=== PATIENT | male | born 1950 | race Caucasian/White ===

== ENCOUNTER 2020-04-05 09:24 | Outpatient (CLI) | payer MEDICARE, OTHER, SELFPAY ==
--- NOTE | ~2020-04-05 | CT_ITS ---
EXAMINATION:CT chest w con DATE: 04/05/2020 10:13 INDICATION: Aortic aneurysm. TECHNIQUE: Computed tomography (CT) of the chest was performed with 75 mL Omnipaque 350 intravenous c ontrast. Automated exposure control and iterative reconstruction technique were employed. The dose-le ngth product (DLP) was 448.49 mGy-cm. COMPARISON: Chest CT 04/23/2019 FINDINGS: There is eventration of anterior right hemidiaphragm. There is mild atelectasis in the infe rior lungs bilaterally. No pleural effusion. The heart size is normal. No pericardial effusion. The a kourtney is obscured at the sinuses of Valsalva due to motion artifact. The aorta measures 4.0 cm at the sinotubular junction, 4.2 cm in the mid ascending aorta, 3.4 cm at the aortic arch, and 2.9 cm in the mid descending aorta. There is a 2.3 cm cyst in right kidney. There is severe osteoarthritis of righ t glenohumeral joint with loose bodies. There is mild thoracic spondylosis and severe cervical spondy losis. IMPRESSION: 1. Stable 4.2 cm fusiform aneurysm of ascending aorta. Reviewed, dictated and finalized at location A.
[2020-04-05 10:03] LABS: Estimated Glomerular Filt Rate > 60
== END 2020-04-05 09:25 | disposition home or self-care (01) ==
PROVIDERS: PCP Family Medicine; Visit Provider Internal Medicine Cardiovascular Disease
DX: I71.4 Abdominal aortic aneurysm, without rupture (principal)
CPT/HCPCS: 36415; 71260; Q9967

== ENCOUNTER → 2021-02-24 07:04 | Outpatient (CLI) | payer MEDICARE, OTHER, SELFPAY ==
[2021-02-24 19:43] LABS: SARS-CoV-2 RNA PCR Negative
== END ==
PROVIDERS: PCP Family Medicine; Visit Provider Family Medicine
DX: Z78.9 Other specified health status (principal); Z20.822 Contact with and (suspected) exposure to COVID-19
CPT/HCPCS: C9803; U0003; U0005

== ENCOUNTER 2021-04-04 10:27 | Outpatient (CLI) | payer MEDICARE, OTHER, SELFPAY ==
--- NOTE | ~2021-04-04 | US_ITS ---
EXAMINATION: US venous doppler [facility] DATE: 04/04/2021 11:06 INDICATION: Left lower limb swelling. TECHNIQUE: Grayscale ultrasound images without and with compression and Doppler ultrasound images of the left lower extremity veins were obtained. COMPARISON: None. FINDINGS: The visualized portions of left common femoral vein, profunda (deep) femoral vein, femoral vein, popl iteal vein, peroneal veins, posterior tibial veins, and greater saphenous vein outflow are patent. Th ere is a large Rangel's cyst. IMPRESSION: 1. No deep venous thrombosis. 2. Large Rangel's cyst. Reviewed, dictated and finalized at location B.
== END 2021-04-04 10:28 | disposition home or self-care (01) ==
PROVIDERS: PCP Family Medicine; Visit Provider Orthopaedic Surgery
DX: M79.662 Pain in left lower leg (principal); M79.89 Other specified soft tissue disorders; M71.22 Synovial cyst of popliteal space [Baker], left knee
CPT/HCPCS: 93971

== ENCOUNTER → 2021-04-13 02:43 | Outpatient (CLI) | payer MEDICARE, OTHER, SELFPAY ==
[2021-04-13 18:15] LABS: SARS-CoV-2 RNA PCR Negative
== END ==
PROVIDERS: PCP Family Medicine; Visit Provider Internal Medicine Gastroenterology
DX: Z01.812 Encounter for preprocedural laboratory examination (principal); Z20.822 Contact with and (suspected) exposure to COVID-19
CPT/HCPCS: C9803; U0003; U0005

== ENCOUNTER 2021-04-16 00:42 | Day surgery (SDC) | payer MEDICARE, OTHER, SELFPAY ==
[2021-04-10 09:56] VITALS: BMI 31.1
[2021-04-16] MEDS: LACTATED RINGERS 1,000 ML 150 ML IV CONT (07:07)
--- NOTE | 2021-04-16 07:13 | P.PNAN_ITS ---
Anes - Initial Pre Proc Eval Procedure: Operation Date: 04/16/21 08:00 Proposed Procedures p Screening Colonoscopy - Leon Lowery MD Date/Time: 04/16/21 07:13 Surgeon: Leon Lowery MD Pre Op Diagnosis: neoplasm screening Patient Data Age: 70 Gender: M Height: 1.83 m Weight: 105.6 kg Allergies Allergy/AdvReac Type Severity Reaction Status Date / Time No Known Allergies Allergy Verified 04/16/21 06:53 Home Medications Medication Instructions Recorded Confirmed Type aspirin 81 mg tablet,delayed 81 mg PO DAILY 12/09/19 04/16/21 History release losartan 50 mg tablet 50 mg PO DAILY #90 tablet 06/05/20 04/16/21 Rx doxazosin 4 mg tablet 4 mg PO DAILY #90 tablet 10/18/20 04/16/21 Rx metoprolol succinate 25 mg See Rx Instructions .ROUTE 01/26/21 04/16/21 Rx tablet,extended release 24 hr .COMPLEX #90 tablet finasteride 5 mg tablet See Rx Instructions .ROUTE 02/06/21 04/16/21 Rx .COMPLEX #90 tablet atorvastatin [Lipitor] 10 mg PO EVERY OTHER DAY 04/10/21 04/16/21 History sildenafil (pulm.hypertension) See Rx Instructions .ROUTE .COMPLEX 04/16/21 04/16/21 History [Revatio] Patient hx anesthesia problems: none Family hx anesthesia problems: none [facility] Past Medical History Medical History (Updated 04/04/21 @ 09:46 by Armani Howard MD) Osteoarthritis of left knee Surgical History Surgical History History of total right knee replacement 2014 Family History Family History Father Family history of elevated blood lipids Social History Social History Years smoked: 10 Smoking status: Former smoker Tobacco type: cigarettes Alcohol intake: current Alcohol use details: OCCATIONAL Living arrangements: with family Gender identity (if verbalized by the patient): Male Spiritual care concerns: No Anes - Eval Final PreProcedure Day of Procedure 04/16/21 07:13 Patient weight: obese Heart: regular rate and rhythm Lungs: clear to auscultation and normal air movement Airway: Mallampati scale class II Neurological: alert and oriented Last oral intake: >/= 8 hours ASA classification: III Emergent: no Anesthetic plan: proceed Anesthesia type and monitoring: general GIVS Informed Consent: The patient's anesthetic plan and its attendant risks and benefits were discussed with the patient/family/POA. Questions were solicited and answers provided to the satisfaction of the patient/family/POA.
--- NOTE | 2021-04-16 07:56 | WPDGICN ---
Assessment and Plan Assessment and plan (1) Encounter for screening colonoscopy: Code(s): Z12.11 - Encounter for screening for malignant neoplasm of colon Status: Acute Assessment and Plan: Patient presents for screening colonoscopy. His current weight appetite bowel movements are normal. He peers be at average risk for colon polyps. Further recommendations will be given after endoscopy. GI Consult Note Consult date/time: 04/16/21 07:56 HPI: Guy Gates is a 70 year old male Presents for screening colonoscopy. Patient reports that his current weight appetite bowel movements are normal. Patient denies abdominal pain. He has had no bleeding. Family history noncontributory. Review of Systems Review of Systems: All systems reviewed & are unremarkable except as noted in HPI and below PMFSH Past Medical History Medical History (Updated 04/16/21 @ 07:57 by Leon Lowery MD) Osteoarthritis of left knee Surgical History Surgical History History of total right knee replacement 2014 Family History Family History Father Family history of elevated blood lipids Social History Social History Years smoked: 10 Smoking status: Former smoker Tobacco type: cigarettes Alcohol intake: current Alcohol use details: OCCATIONAL Living arrangements: with family Gender identity (if verbalized by the patient): Male Spiritual care concerns: No Meds Home Medications and Allergies Home Medications Medication Instructions Recorded Confirmed Type aspirin 81 mg tablet,delayed 81 mg PO DAILY 12/09/19 04/16/21 History release losartan 50 mg tablet 50 mg PO DAILY #90 tablet 06/05/20 04/16/21 Rx doxazosin 4 mg tablet 4 mg PO DAILY #90 tablet 10/18/20 04/16/21 Rx metoprolol succinate 25 mg See Rx Instructions .ROUTE 01/26/21 04/16/21 Rx tablet,extended release 24 hr .COMPLEX #90 tablet finasteride 5 mg tablet See Rx Instructions .ROUTE 02/06/21 04/16/21 Rx .COMPLEX #90 tablet atorvastatin [Lipitor] 10 mg PO EVERY OTHER DAY 04/10/21 04/16/21 History sildenafil (pulm.hypertension) See Rx Instructions .ROUTE .COMPLEX 04/16/21 04/16/21 History [Revatio] Allergies Allergy/AdvReac Type Severity Reaction Status Date / Time No Known Allergies Allergy Verified 04/16/21 06:53 Exam Narrative: Exam Narrative: Physical exam reveals patient be alert. Vital signs stable. HEENT exam is unremarkable. Patient is anicteric. Lungs are clear to auscultation and percussion. Heart is without murmur or extra sounds. Abdominal exam bowel sounds are present soft nontender with no organomegaly. Digital external rectal exam is normal.
[2021-04-16 08:25] VITALS: BP 133/70; PULSE 62; RESP 20; O2SAT 96
[2021-04-16 08:35] VITALS: BP 128/67; PULSE 70; RESP 20; O2SAT 96
[2021-04-16 08:45] VITALS: BP 128/67; PULSE 66; RESP 22; O2SAT 96
== END 2021-04-16 08:58 | disposition home or self-care (01) ==
PROVIDERS: PCP Family Medicine; Visit Provider Internal Medicine Gastroenterology
PROC: 0DJD8ZZ Inspection of Lower Intestinal Tract, Via Natural or Artificial Opening Endoscopic (ICD-10-PCS; CPT 45378; principal; 2021-04-16 08:00)
DX: Z12.11 Encounter for screening for malignant neoplasm of colon (principal); K64.8 Other hemorrhoids; K57.30 Diverticulosis of large intestine without perforation or abscess without bleeding; Z87.891 Personal history of nicotine dependence; Z79.82 Long term (current) use of aspirin; Z79.899 Other long term (current) drug therapy; E66.9 Obesity, unspecified; Z68.31 Body mass index [BMI] 31.0-31.9, adult
CPT/HCPCS: G0121; J2704; J7120

== ENCOUNTER 2021-05-08 14:29 | Outpatient (CLI) | payer MEDICARE, OTHER, SELFPAY ==
--- NOTE | ~2021-05-08 | CT_ITS ---
EXAMINATION: CTA chest DATE: 05/08/2021 15:46 INDICATION: Ascending aortic aneurysm TECHNIQUE: Computed tomographic angiography (CTA) of the chest was performed with 100 mL Omnipque-350 intravenous contrast. Maximum intensity projection 3D-reconstructions of the aorta and other arterie s were constructed by the technologist on a separate workstation. The dose-length product (DLP) was 7 02.21 mGy-cm. Automated exposure control and iterative reconstruction technique were employed. COMPARISON: 03/16/2020 FINDINGS: There is an unchanged fusiform aneurysm of the ascending aorta measuring 4.1 cm at the leve l of the main pulmonary artery. There is no dissection. The lungs are free of acute opacities. There is no pleural effusion or pneumothorax. No pathologically enlarged thoracic lymph nodes are identifie d. The heart size is normal. There is mild thoracic spondylosis. Severe right glenohumeral joint oste oarthritis is again noted. A 9 mm cyst is present in the left hepatic lobe. There is a 2.7 cm cyst of the right kidney IMPRESSION: 1. Stable 4.1 cm fusiform aneurysm of the ascending aorta Reviewed, dictated and finalized at location B.
[2021-05-08 15:37] LABS: Estimated Glomerular Filt Rate > 60
== END 2021-05-08 14:30 | disposition home or self-care (01) ==
PROVIDERS: PCP Family Medicine; Visit Provider Internal Medicine Cardiovascular Disease
DX: I71.2 Thoracic aortic aneurysm, without rupture (principal)
CPT/HCPCS: 71275; Q9967

== ENCOUNTER 2021-07-10 07:47 | Outpatient (CLI) | payer MEDICARE, OTHER, SELFPAY ==
--- NOTE | 2021-07-10 08:39 | ECG_ITS ---
Measurements Intervals Grady Rate: 54 P: ND: 0 QRS: -17 QRSD: 88 T: -6 QT: 416 QTc: 396 Interpretive Statements SINUS BRADYCARDIA WITH FIRST DEGREE AV BLOCK LOW QRS VOLTAGE IN PRECORDIAL LEADS VOLTAGE CRITERIA FOR LVH ANTEROSEPTAL INFARCT, AGE INDETERMINATE INFERIOR INFARCT, AGE INDETERMINATE BASELINE ARTIFACT- I, II, III, AVR, AVL, AVF ABNORMAL ECG Electronically Signed On 07-10-2021 9:20:42 CDT by Hermann Kim D.O.
[2021-07-10 09:29] LABS: Basophils Percent Auto 0.7 % (0.2-1.2); Eosinophils Absolute Auto 0.1 K/mm3 (0-0.3); Eosinophils Percent Auto 2.4 % (0-4.4); Hematocrit 43.8 % (42.0-52.0); Hemoglobin 14.2 g/dL (14.0-18.0); Immature Granulocyte Absolute 0.01 K/mm3 (0.00-0.031); Immature Granulocyte Percent A 0.2 % (0-0.5); Lymphocytes Absolute Auto 1.65 K/mm3 (0.9-3.2); Lymphocytes Percent Auto 30.8 % (18.3-44.2); Mean Corpuscular HGB Conc 32.4 g/dl (32-36); Mean Corpuscular Hemoglobin 28.6 pg (26-34); Mean Corpuscular Volume 88.1 fl (80-100); Mean Platelet Volume 10.9 fl (7.4-10.4); Monocytes Absolute Auto 0.5 K/mm3 (0.1-0.6); Monocytes Percent Auto 9.3 % (2.6-8.5); Neutrophils Percent Auto 56.6 % (45.5-73.1); Platelet Count Result 170 k/mm3 (150-375); Red Blood Count 4.97 M/mm3 (4.6-6.20); Red Cell Distribution Width 14.6 % (11.5-14.5); White Blood Count 5.4 K/mm3 (4.5-10.0)
[2021-07-10 09:41] LABS: Albumin Level 3.8 g/dL (3.5-5.1)
[2021-07-10 09:46] LABS: Anion Gap 4 mmol/L (8-16); Blood Urea Nitrogen 18 mg/dL (9-20); Calcium 8.6 mg/dL (8.4-10.2); Carbon Dioxide 29 mmol/L (22-30); Chloride 105 mmol/L (98-107); Estimated Glomerular Filt Rate > 60; Glucose 98 mg/dL (65-110); Potassium 4.4 mmol/L (3.4-5.0); Sodium 138 mmol/L (137-145)
[2021-07-10 09:47] LABS: Urine Cotinine NEGATIVE
[2021-07-10 10:14] LABS: Hemoglobin A1C 5.5 % (<5.7)
== END 2021-07-10 07:48 | disposition home or self-care (01) ==
LOC: ANHSURGERY 07:48
PROVIDERS: Anesthesiology; PCP Family Medicine; Visit Provider Orthopaedic Surgery
DX: Z01.818 Encounter for other preprocedural examination (principal); M17.12 Unilateral primary osteoarthritis, left knee; I10 Essential (primary) hypertension; I25.2 Old myocardial infarction; R00.1 Bradycardia, unspecified; I44.30 Unspecified atrioventricular block; Z51.81 Encounter for therapeutic drug level monitoring; Z79.899 Other long term (current) drug therapy
CPT/HCPCS: 80048; 80307; 82040; 83036; 85025; 86850; 86900; 86901; 87081; 93005

== ENCOUNTER 2021-08-01 11:30 | Outpatient (CLI) | payer MEDICARE, OTHER, SELFPAY | END 2021-08-01 11:31 | disposition home or self-care (01) | PROVIDERS: PCP Family Medicine; Visit Provider Orthopaedic Surgery | DX: Z01.812 Encounter for preprocedural laboratory examination (principal); M17.12 Unilateral primary osteoarthritis, left knee | CPT/HCPCS: 36415; 86850; 86900; 86901 ==

== ENCOUNTER 2021-08-13 01:40 | Day surgery (SDC) | payer MEDICARE, OTHER, SELFPAY ==
[2021-07-10 07:55] VITALS: BMI 32.0
[2021-07-10 08:43] VITALS: BP 138/78; PULSE 60; RESP 16; TEMP 37.2; O2SAT 97
--- NOTE | 2021-08-01 10:52 | PC.NURSE ---
PT STATES NO CHANGE IN HEALTH HX SINCE LAST INTERVIEW ON 07/10/21.
[2021-08-13] VITALS (15 sets, daily range): BP systolic 104–142; BP diastolic 55–79; PULSE 43–69; RESP 12–18; TEMP 36.5–37.2; O2SAT 92–98; BMI 35.6
--- NOTE | ~2021-08-13 | XR_ITS ---
EXAMINATION: XR knee LT 2V DATE: 08/13/2021 14:25 INDICATION: Total left knee arthroplasty. Postop. TECHNIQUE: 2 views of left knee were obtained. COMPARISON: Left knee radiographs 04/04/2021 FINDINGS: There is a total left knee arthroplasty with patellar resurfacing in near-anatomic alignmen t. No fracture. There is gas in the knee joint and soft tissues, consistent with recent surgery. IMPRESSION: 1. Total left knee arthroplasty in near-anatomic alignment. Reviewed, dictated and finalized at location A.
[2021-08-13] MEDS: ACETAMINOPHEN 500 MG TABLET 1000 MG PO (09:34)
[2021-08-13] MEDS: LACTATED RINGERS 1,000 ML 30 ML IV CONT ×2 (09:42→14:08)
--- NOTE | 2021-08-13 10:15 | WPDHPUPDATE1 ---
History and Physical Update Update Date/Time: 08/13/21 10:15 History and Physical has been reviewed, including an updated exam of the patient. There are NO changes in the patient's condition. Risks, benefits, and alternatives have been discussed and questions answered. Patient agrees to proceed with procedure.
--- NOTE | 2021-08-13 10:15 | WPDANESEPPF ---
Anes - Initial Pre Proc Eval Procedure: Operation Date: 08/13/21 11:00 Proposed Procedures p Left Total Knee Arthroplasty - Armani Howard MD Date/Time: 08/13/21 10:15 Surgeon: Armani Howard MD Pre Op Diagnosis: Left Knee OA Patient Data Age: 71 Gender: M Height: 1.8 m Weight: 105.8 kg Last Vital Signs Temp 36.6 C 08/13/21 09:12 Pulse 69 08/13/21 09:12 Resp 16 08/13/21 09:12 BP 129/79 08/13/21 09:12 Pulse Ox 97 08/13/21 09:12 Allergies Allergy/AdvReac Type Severity Reaction Status Date / Time No Known Allergies Allergy Verified 08/13/21 09:18 Home Medications Medication Instructions Recorded Confirmed Type aspirin 81 mg tablet,delayed 81 mg PO DAILY 12/09/19 08/13/21 History release finasteride 5 mg tablet See Rx Instructions .ROUTE 02/06/21 08/13/21 Rx .COMPLEX #90 tablet losartan 50 mg-hydrochlorothiazide See Rx Instructions .ROUTE 04/30/21 08/13/21 Rx 12.5 mg tablet .COMPLEX #90 tablet sildenafil (pulm.hypertension) 20 See Rx Instructions .ROUTE 04/30/21 08/13/21 Rx mg tablet .COMPLEX #30 tablet acetaminophen [Tylenol Arthritis 650 mg PO PRN PRN 07/10/21 08/13/21 History Pain] atorvastatin 10 mg PO EVERY OTHER DAY 07/10/21 08/13/21 History calcium carbonate-vitamin D3 1 tablet PO DAILY 07/10/21 08/13/21 History [Calcium 600 with Vitamin D3] doxazosin 4 mg PO HS 07/10/21 08/13/21 History metoprolol succinate 25 mg PO QAM 07/10/21 08/13/21 History xisgtytxrhcs-lvbpsfjp-dfavqp 1 tablet PO DAILY 07/10/21 08/13/21 History [Centrum Silver] naproxen sodium [Aleve] 220 mg PO PRN PRN 07/10/21 08/13/21 History apixaban 5 mg tablet 5 mg PO BID #28 tablet 08/07/21 08/13/21 Rx Patient hx anesthesia problems: none Family hx anesthesia problems: none Results Review: All pre-operative results and documents have been reviewed as part of the pre-operative evaluation. [facility] Past Medical History Medical History (Updated 08/13/21 @ 06:49 by Anton Edwards DO) AAA (abdominal aortic aneurysm) CT 05/08/21 - no change from 2019 DVT (deep venous thrombosis) Essential (primary) hypertension Mixed hyperlipidemia Osteoarthritis of left knee PONV (postoperative nausea and vomiting) Surgical History Surgical History (Updated 08/13/21 @ 06:49 by Anton Edwards DO) History of total right knee replacement 2014 Family History Family History Father Family history of elevated blood lipids Social History Social History Smoking packs per day: 1 Smoking cigarettes per day: 20.0 Years smoked: 4 Smoking pack-years: 4.00 Smoking status: Former smoker Tobacco type: cigarettes Smoking end date: 11/10/69 Additional smoking assessment comments: DENIES ANY FORM OF TOBACCO USE Alcohol intake: current Drinks per week: 2 Alcohol use details: OCCATIONAL Living arrangements: with family Gender identity (if verbalized by the patient): Male Spiritual care concerns: No Anes - Eval Final PreProcedure Day of Procedure 08/13/21 10:15 Patient weight: obese Heart: regular rate and rhythm Lungs: clear to auscultation and normal air movement Airway: Mallampati scale class III Neurological: alert and oriented Last oral intake: >/= 8 hours ASA classification: III Emergent: no Anesthetic plan: proceed Anesthesia type and monitoring: general LMA and standard monitoring Results Review: All pre-operative results and documents have been reviewed as part of the pre-operative evaluation. Informed Consent: The patient's anesthetic plan and its attendant risks and benefits were discussed with the patient/family/POA. Questions were solicited and answers provided to the satisfaction of the patient/family/POA.
--- NOTE | 2021-08-13 10:15 | WPDANESPNB ---
Anes - Peripheral Nerve Block Date/Time: 08/13/21 10:15 I have discussed with the patient/family/POA the placement of a peripheral nerve block for post-operative pain management, including associated risks, benefits, complications, and side effects. Alternative methods of post-operative analgesia were detailed. Questions were solicited and answers provided to the satisfaction of the patient/family/POA. Time-Out: A pre-procedural Time-Out was completed immediately before starting the procedure and confirmed: Patient Identification, Site, Procedure, Patient Position and the Availability of Requisite Equipment. Clinical Indications: Acute post-operative pain management requested by the operative surgeon. Nerve Block Insertion Note Anes-nerve block: adductor canal left Patient position: supine Skin prep: chlorhexidine Needle: 22 gauge, stimulating, insulated echogenic needle. Needle length: 80 mm Technique: ultrasound Injectate: bupivacaine 0.5% with epi 5 mcg/ml (30cc - no epi) Observations: tolerated well Complications: none Procedure start time:: 104 Procedure end time:: 1048
[2021-08-13] MEDS: KETOROLAC 15 MG/ML VIAL (*BKC) IV PUSH (10:41)
[2021-08-13] MEDS: TRANEXAMIC ACID 1,000MG/ISO100 1,000 MG/100 ML BAG 200 MG IVPB (10:42)
[2021-08-13] MEDS: ceFAZolin 2 GM/D5W 50 ML 2 GM/50 ML BAG IVPB ×2 (11:17→20:48)
[2021-08-13] MEDS: GENTAMICIN BONE CEMENT REFOBACIN 1 EACH TOPICAL (12:46)
--- NOTE | 2021-08-13 14:14 | W.PM.PROC2 ---
Procedure Note - Detailed Date of Procedure 08/13/21 Pre-op Diagnosis Left Knee OA Post-op Diagnosis same Procedure Performed Left total knee replacement Surgeon Armani Howard MD Senior Business Analyst Nguyen Noel Anesthesia regional and spinal Description of Procedure The patient was identified and proper site identified. In the preop holding area the anesthesia team performed a left sub sartorial block after which the patient was taken to the operating room and transferred to the OR table positioning supine taking care to pad the torso and extremities. After a spinal anesthetic was administered, a nonsterile tourniquet was placed high on the left thigh. The left lower extremity was prepped and draped in the usual sterile fashion. The extremity was exsanguinated and with the knee flexed tourniquet was inflated to 300 mmHg remaining up for approximately 65 minutes. An anterior midline incision was made and a modified medial parapatellar approach was used. Infra and suprapatellar fat pads were excised. Patella was resected leaving 15 mm thickness and prepared for the size 30 for round three peg component. Using the intramedullary guide the distal femur was cut in the proper orientation for the size 72.5 femoral component. Using the extramedullary guide the tibia was cut perpendicular to the long axis protecting collateral ligaments and popliteal structures. It was sized to a 75. Flexion and extension gaps were balanced. Trial reduction was undertaken and the weight-bearing line was noted to passed through the center of the joint. Proximal tibia was drilled and punched in the proper orientation for the real component. Trial components were removed. The bone surfaces were washed with pulsatile lavage and dried. The real components were cemented simultaneously. The knee was held in extension and the patella held clamped until the cement had cured. Excess cement was removed from the joint. After trialing it was determined that the 14 mm insert gave full range of motion from 0-120 degrees of flexion and the patella tracked in the femoral groove with no lift-off. After final lavage the joint the real 14, E poly insert was placed and secured with a locking bar. A Betadine and saline wash was placed into the wound and allowed to sit for approximately 3 minutes and then evacuated. Periarticular tissues were infiltrated with 60 cc of the arthroplasty solution. 1 g of tranexamic acid was left in the wound. The extensor mechanism was repaired with #2 Vicryl suture and 0 looped PDS suture. Subcu was reapproximated with 2-0 Monocryl, 2-0 Stratafix and then tissue adhesive for the skin. A sterile dressing was applied. He tolerated the procedure well, was awakened and extubated, transferred to the bed and was taken to recovery area in stable condition. There were no known intraoperative complications. Perioperative antibiotics were administered. Estimated Blood Loss 200 Tourniquet Time 65 Drains No Packing No Pathology none sent Complications No immediate complications Condition stable Disposition PACU
[2021-08-13] MEDS: fentaNYL CITRATE INJ (*CRX) 100 MCG/2 ML VIAL 25 MCG IV PUSH ×4 (14:28→17:33)
--- NOTE | 2021-08-13 15:40 | SUR.PHASEI ---
1540- PT AWAITING A ROOM ON [address] [place] [address]. SPOKE WITH 2ND FLOOR RN AND SHE STATED WAITING ON PT TO BE DISCHARGED. PT STATED PAIN IS TOLERABLE AT THIS TIME. DENIES NAUSEA. PT TOLERATING ICE CHIPS. LT KNEE DRESSING DRY AND INTACT. 2 + PEDAL PULSE. PT CAN WIGGLE TOES AND LIFT LEG OFF STRETCHER. PT'S UPDATED.
[2021-08-13] MEDS: HYDROcodone/acetaminophen (*CRX) 5-325 MG TABLET 1 TAB PO ×2 (18:49→22:42)
[2021-08-13] MEDS: DOCUSATE SODIUM 100 MG CAPSULE PO (20:50)
[2021-08-13] MEDS: FAMOTIDINE 20 MG TABLET PO (20:50)
[2021-08-13] MEDS: DOXAZOSIN MESYLATE 4 MG TABLET PO (21:30)
--- NOTE | 2021-08-14 00:56 | PC.NURSE ---
pt has not urinated since DC from PACU around 1800. Bladder scan shows 255ml max.
[2021-08-14 03:46] VITALS: BP 155/61; PULSE 72; RESP 16; TEMP 37.1; O2SAT 96
[2021-08-14] MEDS: ceFAZolin 2 GM/D5W 50 ML 2 GM/50 ML BAG IVPB ×2 (03:56→10:06)
[2021-08-14] MEDS: HYDROcodone/acetaminophen (*CRX) 5-325 MG TABLET 1 TAB PO ×2 (03:56→08:44)
[2021-08-14 06:25] LABS: Basophils Percent Auto 0.3 % (0.2-1.2); Eosinophils Percent Auto 0.5 % (0-4.4); Hematocrit 34.8 % (42.0-52.0); Hemoglobin 11.6 g/dL (14.0-18.0); Immature Granulocyte Absolute 0.02 K/mm3 (0.00-0.031); Immature Granulocyte Percent A 0.3 % (0-0.5); Lymphocytes Absolute Auto 0.96 K/mm3 (0.9-3.2); Lymphocytes Percent Auto 15.8 % (18.3-44.2); Mean Corpuscular HGB Conc 33.3 g/dl (32-36); Mean Corpuscular Hemoglobin 29.2 pg (26-34); Mean Corpuscular Volume 87.7 fl (80-100); Mean Platelet Volume 11.4 fl (7.4-10.4); Monocytes Absolute Auto 0.7 K/mm3 (0.1-0.6); Monocytes Percent Auto 11.7 % (2.6-8.5); Neutrophils Absolute Auto 4.4 K/mm3 (1.3-6.7); Neutrophils Percent Auto 71.4 % (45.5-73.1); Platelet Count Result 147 k/mm3 (150-375); Red Blood Count 3.97 M/mm3 (4.6-6.20); Red Cell Distribution Width 13.7 % (11.5-14.5); White Blood Count 6.1 K/mm3 (4.5-10.0)
[2021-08-14 06:33] LABS: Anion Gap 5 mmol/L (8-16); Blood Urea Nitrogen 19 mg/dL (9-20); Calcium 7.7 mg/dL (8.4-10.2); Carbon Dioxide 26 mmol/L (22-30); Chloride 101 mmol/L (98-107); Estimated CRCL calculation 108 ml/min; Estimated Glomerular Filt Rate > 60; Glucose 110 mg/dL (65-110); Sodium 132 mmol/L (137-145)
--- NOTE | 2021-08-14 07:32 | PM.DS ---
DS: Admitting Diagnosis Discharge Date August 14, 2021 Admitting Diagnosis left knee osteoarthritis DS: Discharge Diagnosis Discharge Diagnosis (1) History of total left knee replacement: Code(s): Z96.652 - Presence of left artificial knee joint Status: Resolved Assessment and Plan: 71-year-old male postop day one left knee replacement. Anticipate discharge today after physical therapy. DS: Summary Hospital Course Reason for hospitalization: Observation following outpatient procedure. Hospital Course: Following the patient's surgery he was admitted to the floor for observation, pain management and to initiate physical therapy. Anticipate discharge today after therapy. Status at Discharge Functional status at discharge: uses cane/walker Overall status at discharge: patient is not back to baseline Exam Const: General: cooperative, no acute distress and alert Nutritional Appearance: other Orientation/consciousness: patient oriented x3 Limitations: no limitations HENMT: Head: normal to inspection Ears: hearing grossly normal bilaterally Face and sinus: face symmetric Mouth: Yes moist mucous membranes Teeth and gingiva: fair dentition Eyes: Alignment and Position: alignment normal and position normal Sclera: sclerae normal Neck: Neck: normal visual inspection and nontender Chest: Chest palpation & inspection: normal inspection of the chest Resp: Effort & Inspection: normal respiratory effort and able to speak in complete sentences GI: Inspection: other ( Nondistended) Skin: General skin exam: normal color Rashes: no rashes Neuro: General: patient oriented x3 Cognition (Neuro): normal cognition Speech: normal speech Extrem: General: normal to inspection and other Other: Exam of the left knee shows dry incision. Mild swelling and no bruising appreciated. Grossly neurovascular status intact left lower extremity. Calves negative. Psych: Appearance: grossly normal Mental Status: mental status grossly normal DS: Data Data Completed and Pending Labs on day of discharge: Labs from last 24 hours 08/14/21 08/14/21 05:17 05:17 WBC 6.1 RBC 3.97 L Hgb 11.6 L Hct 34.8 L MCV 87.7 MCH 29.2 MCHC 33.3 RDW 13.7 Plt Count 147 L MPV 11.4 H Immature Gran % (Auto) 0.3 Neut % (Auto) 71.4 Lymph % (Auto) 15.8 L [place] % (Auto) 11.7 H Eos % (Auto) 0.5 Baso % (Auto) 0.3 Lymph # (Auto) 0.96 [place] # (Auto) 0.7 H Eos # (Auto) 0.0 Baso # (Auto) 0.0 Abs Immat Gran (auto) 0.02 Absolute Neuts (auto) 4.4 Absolute Nucleated RBC 0.0 Nucleated RBC % 0.0 Sodium 132 L Potassium 4.0 Chloride 101 Carbon Dioxide 26 Anion Gap 5 L BUN 19 Creatinine 0.70 Estim Creat Clear Calc 108 Estimated GFR > 60 Glucose 110 Calcium 7.7 L Discharge Plan Discharge Patient Disposition: Home, Self-Care Discharge Instructions: 3 times daily for 20 minutes each time, reclining in bed with ice packs over the incision and a pillow underneath the calf of the affected leg, not under the knee. Your wound is glued so it is okay to get into the shower and get the wound wet in two days. Be sure to read through all the information that came from a my office and the hospital. Most of the answers you will need can be found that material. Call the office with any questions that you cannot find answers to, or concerns you may have. After the Xarelto is completed, start taking one coated 325 mg aspirin daily and do this for four more weeks. Please call [facility] at as soon as possible to Verify your follow-up appointment to be seen in to weeks. Also, call the office with any orthopedic/surgical related questions prior to follow-up. Be sure to get up and move around several times daily but do not overdo it. Be sure to take your pain medication on a schedule for the first 5-7 days, then as needed after that. Use the Colace (laxa
[2021-08-14] MEDS: ATORVASTATIN 10 MG TABLET PO (08:39)
[2021-08-14] MEDS: DOCUSATE SODIUM 100 MG CAPSULE PO (08:39)
[2021-08-14] MEDS: LOSARTAN POTASSIUM 50 MG TABLET PO (08:39)
[2021-08-14] MEDS: hydroCHLOROthiazide 12.5 MG CAPSULE PO (08:39)
[2021-08-14] MEDS: APIXABAN 5 MG TABLET PO (08:39)
[2021-08-14 08:40] VITALS: PULSE 80
[2021-08-14] MEDS: OPTI-GEN TAB 1 TABLET PO (08:40)
[2021-08-14] MEDS: FAMOTIDINE 20 MG TABLET PO (08:40)
[2021-08-14] MEDS: METOPROLOL SUCCINATE EXT REL 25 MG TABCR PO (08:40)
[2021-08-14] MEDS: FINASTERIDE 5 MG TABLET PO (08:40)
[2021-08-14 10:00] VITALS: BP 122/48; PULSE 79; RESP 20; TEMP 36.7; O2SAT 96
--- NOTE | 2021-08-14 10:24 | P.PNAN_ITS ---
Anes - Prog Note Post-Op Date/Time: 08/14/21 10:24 Cardiovascular status: normal Respiratory status: normal Airway patency: baseline Mental status: baseline Post-Op hydration status: normal Vital Signs: Last Vital Signs Temp 37.1 C 08/14/21 03:46 Pulse 80 08/14/21 08:40 Resp 16 08/14/21 03:46 BP 155/61 H 08/14/21 03:46 Pulse Ox 96 08/14/21 03:46 Pain Score (VAS): 4 I/O: Intake & Output 08/13/21 08/14/21 08/14/21 23:59 07:59 15:59 Intake Total 550 450 360 Output Total 180 375 Balance 370 75 360 Laboratory Tests 08/14/21 05:17 08/14/21 05:17 08/14/21 08/14/21 05:17 05:17 WBC 6.1 RBC 3.97 L Hgb 11.6 L Hct 34.8 L MCV 87.7 MCH 29.2 MCHC 33.3 RDW 13.7 Plt Count 147 L MPV 11.4 H Immature Gran % (Auto) 0.3 Neut % (Auto) 71.4 Lymph % (Auto) 15.8 L [place] % (Auto) 11.7 H Eos % (Auto) 0.5 Baso % (Auto) 0.3 Lymph # (Auto) 0.96 [place] # (Auto) 0.7 H Eos # (Auto) 0.0 Baso # (Auto) 0.0 Abs Immat Gran (auto) 0.02 Absolute Neuts (auto) 4.4 Absolute Nucleated RBC 0.0 Nucleated RBC % 0.0 Sodium 132 L Potassium 4.0 Chloride 101 Carbon Dioxide 26 Anion Gap 5 L BUN 19 Creatinine 0.70 Estim Creat Clear Calc 108 Estimated GFR > 60 Glucose 110 Calcium 7.7 L Post-procedural complaints: none Patient Feedback: Patient satisfied with anesthetic care.
== END 2021-08-14 11:35 | disposition home health service (06) ==
LOC: ANHSURGERY 08:56 → ANH2MED 18:12
PROVIDERS: PCP Family Medicine; Visit Provider Orthopaedic Surgery
PROC: (CPT 27447; principal; 2021-08-13 11:00)
DX: M17.12 Unilateral primary osteoarthritis, left knee (principal); G89.18 Other acute postprocedural pain; I10 Essential (primary) hypertension; E78.2 Mixed hyperlipidemia; I71.4 Abdominal aortic aneurysm, without rupture; Z86.718 Personal history of other venous thrombosis and embolism; Z79.01 Long term (current) use of anticoagulants; Z79.82 Long term (current) use of aspirin; Z87.891 Personal history of nicotine dependence; E66.9 Obesity, unspecified; Z68.35 Body mass index [BMI] 35.0-35.9, adult
CPT/HCPCS: 27447; 64447; 36415; 73560; 80048; 85025; 97110; 97116; 97161; 97165; A9270; C1713; C1776; J0171; J0690; J1885; J2250; J2270; J2704; J2795; J3010; J7120

== ENCOUNTER 2021-08-28 11:22 | Outpatient (CLI) | payer MEDICARE, OTHER, SELFPAY ==
--- NOTE | ~2021-08-28 | US_ITS ---
EXAMINATION:US venous doppler LE LT INDICATION:Left leg swelling TECHNIQUE: Multiple grayscale, color flow and Doppler images of the left lower extremity deep venous systems were obtained and reviewed. COMPARISON:04/04/2021 FINDINGS: The common femoral, superficial femoral and popliteal veins demonstrate normal respiratory variation, augmentation and compressibility. Color flow is also seen within the posterior tibial, gr eater saphenous and profunda veins. The peroneal vein is not well visualized. IMPRESSION: 1: No lower extremity deep venous thrombosis. Reviewed, dictated and finalized at location B.
== END 2021-08-28 11:23 | disposition home or self-care (01) ==
LOC: ANHIMG 11:28
PROVIDERS: PCP Family Medicine; Visit Provider Orthopaedic Surgery
DX: M79.662 Pain in left lower leg (principal); M79.89 Other specified soft tissue disorders
CPT/HCPCS: 93971

== ENCOUNTER 2021-11-01 15:30 | Outpatient (RCR) | payer MEDICARE, OTHER, SELFPAY ==
--- NOTE | 2021-09-03 11:00 | PTOPEVAL ---
PHYSICAL THERAPY EVALUATION AND PLAN OF CARE Thank you for referring Guy Gates to [facility].? The patient is scheduled to be seen for therapy? 2x/week for 6 weeks. Please review, sign, date and return this plan of care TRICIA. I agree with and certify that the following plan of care is medically necessary. Referring Physician Date Attending Provider: Armani Howard MD Evaluation Outpatient Past Medical History Diagnosis left TKA Onset 08/13/2021 Subjective Information Had surgery on 08/13 followed Query Text:As Reported By Patient/ by home health. Is overall Family doing well. Swelling continues . Pain is minimal except for a strip of pain along the lateral side of the thigh. Self Report Pain Assessment Left Knee(s) Reported Pain Level 2 Pain Description Aching Pain Frequency Acute,Intermittent Lowest Pain Intensity 1 Greatest Pain Intensity 4 Pain Score Pain Score 2: Self Report Interventions Used Interventions Used By Clinicians Exercise,Ice Lower Extremity Range of Motion Knee Range of Motion Left Knee Flexion Range of Motion - Active 90 Knee Extension Range of Motion - Active -5 Query Text: Lower Extremity Muscle Strength Testing Hip Strength Left Hip Flexion Strength 4 Good Hip Extension Strength 3 Fair Hip Abduction Strength 3 Fair Knee Strength Left Knee Flexion Strength 4- Good - Knee Extension Strength 4- Good - Knee Strength Comments good quad set Palpation Assessment Palpation Palpation tender to palpation vastus intermedialis and vastus lateralis Gait Assessment Gait Assessment Ambulation Assistive Devices Cane Weight Bearing Status - Left As Tolerated Weight Bearing Status - Right Full Maintains Weight Bearing Status Yes Ambulation Distance 150 Query Text:(Feet) Additional Ambulation Comments good gait pattern with straight cane; instructed patient in technique of using cane and instructed that he may need to use walker for longer distances as needed. General Exercise General Exercises Side Left Exercise Location knee Exercise Type Active,Stretching Exercise Description -quad set - instructed to Query Text:Record Sets, Reps, perform without ankle Resistance, and Position activation -SAQ
--- NOTE | 2021-10-01 10:58 | PTOPEVAL ---
PHYSICAL THERAPY PROGRESS REPORT Thank you for referring Guy Gates to [facility].? The patient is scheduled to be seen for therapy? 2x/week for 4 weeks. Please review, sign, date and return this plan of care TRICIA. I agree with and certify that the following plan of care is medically necessary. Referring Physician Date Attending Provider: Armani Howard MD Progress Diagnosis left TKA Onset 08/13/2021 Subjective Information States that he is doing well Query Text:As Reported By Patient/ overall. Not using an Family assistive device at all anymore. States that there is still some tightness and some swelling. Continues to work on stretching the knee. Self Report Pain Assessment Left Knee(s) Reported Pain Level 1 Pain Description Pressure,Tightness Pain Frequency Acute,Intermittent Pain Aggravating Factors Bending Pain Score Pain Score 1: Self Report Interventions Used Interventions Used By Clinicians Exercise,Manual Therapy Techniques,Taping Lower Extremity Range of Motion Knee Range of Motion Left Knee Flexion Range of Motion - Active 113 Knee Extension Range of Motion - Active -2 Query Text: Lower Extremity Muscle Strength Testing Hip Strength Left Hip Flexion Strength 4+ Good + Hip Extension Strength 3 Fair Hip Abduction Strength 3 Fair Knee Strength Left Knee Flexion Strength 4+ Good + Knee Extension Strength 4- Good - Knee Strength Comments good quad set; overactive left anterior tibialis Balance Assessment Luz Balance Assessment Sitting to Standing Independent w/out Hands Unsupported Stance Ability Safely- 2 minutes Sitting Unsupported, Feet on Floor Safely- 2 minutes Standing to Sitting Safely, Minimal Hand Use Transfer Ability Safely, Minimal Hand Use Unsupported Stance- Eyes Closed Safely, 10 seconds Unsupported Stance- Feet Together Independent, 1 minute Reaching Forward while Standing Confidently, 10 inches election supervisor Object From Floor Independent/Safe Look Behind Shoulder - Standing Shifts Weight Well Turning 360 Degrees Turns Bilateral, < 4 secs Unsupported Stance, Alternating Feet on (I)- 8 Steps in 20 secs Stair Unsupported Tandem Stance Achieves Tandem Unilateral Leg Stance Lifts Leg/Holds 10 secs LUZ Balance Evaluation Total Score (/56 56 points) 5 Time Sit to Stand Time in Seconds 14.62 Gait Assessment 2 Minute Walk Total Distance Walked (feet) 429 2 Minute Walk Gait Speed Score (feet/
--- NOTE | 2021-11-01 15:52 | PTOPEVAL ---
PHYSICAL THERAPY DISCHARGE NOTE Thank you for referring Guy Gates to [facility]. Please review, sign, date and return this plan of care TRICIA. I agree with and certify that the following plan of care is medically necessary. Referring Physician Date Attending Provider: Armani Howard MD Discharge Diagnosis left TKA Onset 08/13/2021 Subjective Information Gurmeet is doing all of his Query Text:As Reported By Patient/ functional tasks that he needs Family at home. He is able to get around his yard and garage without difficulty. Stairs are no problem. Self Report Pain Assessment Left Knee(s) Reported Pain Level 1 Pain Description Pressure,Tightness Pain Frequency Acute,Intermittent Pain Aggravating Factors Bending Pain Score Pain Score 1: Self Report Interventions Used Interventions Used By Clinicians Exercise Lower Extremity Range of Motion Knee Range of Motion Left Knee Flexion Range of Motion - Active 122 Knee Extension Range of Motion - Active 0 Query Text: Lower Extremity Muscle Strength Testing Hip Strength Left Hip Flexion Strength 5 Normal Hip Extension Strength 4- Good - Hip Abduction Strength 4+ Good + Knee Strength Left Knee Flexion Strength 5 Normal Knee Extension Strength 5 Normal Balance Assessment Alvarez Balance Assessment: 56/56 points) 5 Time Sit to Stand Time in Seconds 10.8 5 Time Sit to Stand Comments 1month = 14.62seconds Query Text:Normative Data: If Greater Than 15 Seconds, 74% Increase Risk for Recurrent Falls Stair Climbing Assessment Stair Climbing Assessment Stair Climbing Assistive Devices None Number of Steps Climbed (Steps) 4 Number of Repetitions (Repetitions) 2 Technique Alternating Steps Stair Climbing Direction Both Up and Down Stair Climbing Ability Independent Rehab Teaching Rehab Teaching Teaching Topic Rehab Teaching Topic Components Exercise,Home Program As Pertains To Safety,Technique,Therapy Prognosis Recipient Patient Learning Preferences Demonstration,Discussion Barriers to Learning None Readiness to Learn Excellent Response Returns Demonstration, Verbalizes Understanding Method Demonstration,Discussion,One- On-One Instruction PT Clinical Summary Gurmeet has met his physical
== END 2021-11-05 11:21 | disposition home or self-care (01) ==
LOC: ANHPT 15:30
PROVIDERS: PCP Family Medicine; Visit Provider Orthopaedic Surgery
DX: Z47.1 Aftercare following joint replacement surgery (principal); Z96.652 Presence of left artificial knee joint
CPT/HCPCS: 97016; 97110; 97140; 97162

== ENCOUNTER 2022-10-08 11:04 | Outpatient (CLI) | payer MEDICARE, OTHER, SELFPAY ==
[2022-10-08 18:58] LABS: Basophils Percent Auto 0.7 % (0.2-1.2); Eosinophils Absolute Auto 0.1 K/mm3 (0-0.3); Eosinophils Percent Auto 2.1 % (0-4.4); Hematocrit 45.1 % (42.0-52.0); Hemoglobin 14.5 g/dL (14.0-18.0); Immature Granulocyte Absolute 0.02 K/mm3 (0.00-0.031); Immature Granulocyte Percent A 0.5 % (0-0.5); Lymphocytes Absolute Auto 0.97 K/mm3 (0.9-3.2); Lymphocytes Percent Auto 22.3 % (18.3-44.2); Mean Corpuscular HGB Conc 32.2 g/dl (32-36); Mean Corpuscular Hemoglobin 28.9 pg (26-34); Mean Corpuscular Volume 89.8 fl (80-100); Monocytes Absolute Auto 0.6 K/mm3 (0.1-0.6); Monocytes Percent Auto 14.7 % (2.6-8.5); Neutrophils Absolute Auto 2.6 K/mm3 (1.3-6.7); Neutrophils Percent Auto 59.7 % (45.5-73.1); Platelet Count Result 167 k/mm3 (150-375); Red Blood Count 5.02 M/mm3 (4.6-6.20); Red Cell Distribution Width 14.6 % (11.5-14.5); White Blood Count 4.4 K/mm3 (4.5-10.0)
[2022-10-08 19:25] LABS: Alanine Aminotransferase 25 U/L (6-50); Albumin Level 3.9 g/dL (3.5-5.1); Alkaline Phosphatase 70 U/L (38-126); Anion Gap 7 mmol/L (8-16); Aspartate Amino Transferase 32 U/L (17-59); Bilirubin,Total 0.8 mg/dL (0.2-1.3); Blood Urea Nitrogen 24 mg/dL (9-20); Calcium 7.9 mg/dL (8.4-10.2); Carbon Dioxide 28 mmol/L (22-30); Chloride 104 mmol/L (98-107); Cholesterol 170 mg/dL (0-200); Estimated Glomerular Filt Rate > 60; Glucose 95 mg/dL (65-110); HDL Direct 60 mg/dL; Potassium 4.8 mmol/L (3.4-5.0); Sodium 139 mmol/L (137-145); Triglycerides 46 mg/dL (<150)
[2022-10-08 19:39] LABS: LDL Cholesterol Direct 80 mg/dL
[2022-10-08 19:49] LABS: Prostate Specific Antigen 2.6 ng/mL (< OR = 4.0)
[2022-10-08 20:25] LABS: Folic Acid 19.7 ng/mL (2.76->20)
[2022-10-08 21:46] LABS: Creatinine Urine 131.3 mg/dL
[2022-10-08 21:49] LABS: MALB Creatinine Ratio 25.1 mg/g (0-30); Microalbumin Urine Random 32.9 mg/L (0-16.7)
[2022-10-08 22:31] LABS: Hepatitis C Virus Antibody Negative (Negative)
== END 2022-10-08 11:05 | disposition home or self-care (01) ==
LOC: ANHGOSHLAB 11:12
PROVIDERS: PCP Internal Medicine; Visit Provider Internal Medicine
DX: E04.1 Nontoxic single thyroid nodule (principal); M25.562 Pain in left knee; Z11.59 Encounter for screening for other viral diseases; Z12.5 Encounter for screening for malignant neoplasm of prostate; I10 Essential (primary) hypertension; E78.2 Mixed hyperlipidemia; D69.6 Thrombocytopenia, unspecified; D64.9 Anemia, unspecified
CPT/HCPCS: 36415; 80053; 80061; 82043; 82607; 82728; 82746; 84153; 84443; 85025; 86803; G0103

== ENCOUNTER 2023-01-20 09:33 | Outpatient (CLI) | payer MEDICARE, OTHER, SELFPAY ==
--- NOTE | ~2023-01-20 | CT_ITS ---
EXAMINATION: CTA chest DATE: 01/20/2023 10:11 INDICATION: Benign hypertension with abdominal aortic aneurysm TECHNIQUE: Computed tomographic angiography (CTA) of the chest was performed with 100 mL Omnipaque-35 0 intravenous contrast. Volume-rendered 3D-reconstructions of the aorta and large arteries were const ructed by the technologist on a separate workstation. Automated exposure control and iterative recons truction technique were employed. The dose-length product was 981.45 mGy-cm. COMPARISON: 05/08/2021 FINDINGS: Eventration along the anterior right hemidiaphragm with compressive atelectasis in the basilar right middle lobe. No suspicious pulmonary nodules, pneumonia, pulmonary edema or pleural effusion. Heart s ize is normal. No pericardial effusion. Fusiform ascending thoracic aortic aneurysm measuring up to 4 .3 x 4.1 cm at the level of the main ulnar artery. No dissection. No pathologically enlarged thoracic lymphadenopathy. 1 cm cyst in the left hepatic lobe. 2.8 cm right renal cyst with additional bilater al parapelvic cysts. Visualized upper abdomen is otherwise unremarkable mild upper thoracic levoscoli osis. Moderate lower cervical and upper lumbar spondylosis and mild intervening thoracic spondylosis. Severe right glenohumeral osteoarthritis. IMPRESSION: 1. No significant change in a 4.3 x 4.1 cm fusiform ascending thoracic aortic aneurysm. Reviewed, dictated and finalized at location B. IMPRESSION: 1. No significant change in a 4.3 x 4.1 cm fusiform ascending thoracic aortic a neurysm.
[2023-01-20 10:07] LABS: Estimated Glomerular Filt Rate > 60
== END 2023-01-20 09:34 | disposition home or self-care (01) ==
PROVIDERS: PCP Internal Medicine; Visit Provider Internal Medicine Cardiovascular Disease
DX: I35.1 Nonrheumatic aortic (valve) insufficiency (principal); I10 Essential (primary) hypertension; I71.21 Aneurysm of the ascending aorta, without rupture
CPT/HCPCS: 71275; Q9967

== ENCOUNTER → 2023-06-23 09:04 | Outpatient (CLI) | payer MEDICARE, OTHER, SELFPAY ==
--- NOTE | ~2023-06-23 | US_ITS ---
EXAMINATION: US soft tissue UE LT DATE: 06/23/2023 09:24 INDICATION: Localized swelling, mass or lump suspicious for ganglion cyst at the radial/ventral aspec t of the left wrist TECHNIQUE: Multiple grayscale and Doppler ultrasound images of the region of concern at the radial si de of the ventricle as to the left were obtained. COMPARISON: None FINDINGS: There is a small loculated fluid collection surrounding a short segment of the extensor tendons at th e radial/volar aspect of the wrist. The largest component along side the tendon measures 7 x 5 x 4 mm . There is no internal vascular flow on color Doppler. The lesion is situated between the radial tl ry and vein and a deeper bone which based on the location and contour of the bone likely represents t he scaphoid. IMPRESSION: 1. Lesion of concern corresponds to a small likely fluid collection along the flexor tendon at the ra dial/ventral aspect of the wrist. Given the relatively relatively short extent to the fluid collectio n would favor a ganglion cyst extending along the tendon sheath over tenosynovitis. Reviewed, dictated and finalized at location A. IMPRESSION: 1. Lesion of concern corresponds to a small likely fluid collection along the f lexor tendon at the radial/ventral aspect of the wrist. Given the relatively re latively short extent to the fluid collection would favor a ganglion cyst exten ding along the tendon sheath over tenosynovitis.
== END ==
PROVIDERS: PCP Internal Medicine; Visit Provider Clinical Nurse Specialist
DX: R22.32 Localized swelling, mass and lump, left upper limb (principal); M25.832 Other specified joint disorders, left wrist
CPT/HCPCS: 76882

== ENCOUNTER 2023-09-29 11:14 | Outpatient (CLI) | payer MEDICARE, OTHER, SELFPAY ==
[2023-09-29 18:28] LABS: Alanine Aminotransferase 32 U/L (6-50); Albumin Level 3.7 g/dL (3.5-5.1); Alkaline Phosphatase 57 U/L (38-126); Anion Gap 5 mmol/L (8-16); Aspartate Amino Transferase 30 U/L (17-59); Bilirubin,Total 1.1 mg/dL (0.2-1.3); Blood Urea Nitrogen 20 mg/dL (9-20); Calcium 8.4 mg/dL (8.4-10.2); Carbon Dioxide 29 mmol/L (22-30); Chloride 104 mmol/L (98-107); Cholesterol 160 mg/dL (0-200); Estimated Glomerular Filt Rate > 60; Glucose 97 mg/dL (65-110); HDL Direct 55 mg/dL; Potassium 4.7 mmol/L (3.4-5.0); Sodium 138 mmol/L (137-145); Triglycerides 68 mg/dL (<150)
[2023-09-29 18:40] LABS: LDL Cholesterol Direct 80 mg/dL
[2023-09-29 20:22] LABS: Basophils Percent Auto 0.6 % (0.2-1.2); Eosinophils Absolute Auto 0.2 K/mm3 (0-0.3); Eosinophils Percent Auto 2.7 % (0-4.4); Hematocrit 43.1 % (42.0-52.0); Hemoglobin 14.1 g/dL (14.0-18.0); Immature Granulocyte Absolute 0.03 K/mm3 (0.00-0.031); Immature Granulocyte Percent A 0.4 % (0-0.5); Lymphocytes Absolute Auto 1.42 K/mm3 (0.9-3.2); Lymphocytes Percent Auto 21.2 % (18.3-44.2); Mean Corpuscular HGB Conc 32.7 g/dl (32-36); Mean Corpuscular Volume 88.5 fl (80-100); Mean Platelet Volume 12.1 fl (7.4-10.4); Monocytes Absolute Auto 0.7 K/mm3 (0.1-0.6); Monocytes Percent Auto 9.9 % (2.6-8.5); Neutrophils Absolute Auto 4.4 K/mm3 (1.3-6.7); Neutrophils Percent Auto 65.2 % (45.5-73.1); Platelet Count Result 142 k/mm3 (150-375); Red Blood Count 4.87 M/mm3 (4.6-6.20); Red Cell Distribution Width 14.6 % (11.5-14.5); White Blood Count 6.7 K/mm3 (4.5-10.0)
[2023-09-29 21:19] LABS: Vitamin D 25 Hydroxy 53.5 ng/mL
== END 2023-09-29 11:15 | disposition home or self-care (01) ==
PROVIDERS: PCP Internal Medicine; Visit Provider Internal Medicine
DX: I70.0 Atherosclerosis of aorta (principal); I10 Essential (primary) hypertension; E78.2 Mixed hyperlipidemia; Z12.5 Encounter for screening for malignant neoplasm of prostate; E55.9 Vitamin D deficiency, unspecified
CPT/HCPCS: 36415; 80053; 80061; 82306; 84153; 85025; G0103

== ENCOUNTER 2024-01-13 08:40 | Outpatient (CLI) | payer MEDICARE, OTHER, SELFPAY ==
[2024-01-13 13:07] LABS: Basophils Percent Auto 0.4 % (0.2-1.2); Eosinophils Absolute Auto 0.1 K/mm3 (0-0.3); Eosinophils Percent Auto 2.4 % (0-4.4); Hematocrit 45.8 % (42.0-52.0); Hemoglobin 14.3 g/dL (14.0-18.0); Immature Granulocyte Absolute 0.01 K/mm3 (0.00-0.031); Immature Granulocyte Percent A 0.2 % (0-0.5); Lymphocytes Absolute Auto 1.39 K/mm3 (0.9-3.2); Lymphocytes Percent Auto 30.5 % (18.3-44.2); Mean Corpuscular HGB Conc 31.2 g/dl (32-36); Mean Corpuscular Volume 89.6 fl (80-100); Mean Platelet Volume 11.9 fl (7.4-10.4); Monocytes Absolute Auto 0.5 K/mm3 (0.1-0.6); Monocytes Percent Auto 10.1 % (2.6-8.5); Neutrophils Absolute Auto 2.6 K/mm3 (1.3-6.7); Neutrophils Percent Auto 56.4 % (45.5-73.1); Platelet Count Result 158 k/mm3 (150-375); Red Blood Count 5.11 M/mm3 (4.6-6.20); Red Cell Distribution Width 14.3 % (11.5-14.5); White Blood Count 4.6 K/mm3 (4.5-10.0)
[2024-01-13 13:10] LABS: Anion Gap 6 mmol/L (8-16); Blood Urea Nitrogen 23 mg/dL (9-20); Calcium 8.4 mg/dL (8.4-10.2); Carbon Dioxide 27 mmol/L (22-30); Chloride 106 mmol/L (98-107); Estimated Glomerular Filt Rate > 60; Glucose 88 mg/dL (65-110); Sodium 139 mmol/L (137-145)
== END 2024-01-13 08:41 | disposition home or self-care (01) ==
PROVIDERS: PCP Internal Medicine; Visit Provider Internal Medicine Cardiovascular Disease
DX: I44.1 Atrioventricular block, second degree (principal); R00.1 Bradycardia, unspecified; I10 Essential (primary) hypertension
CPT/HCPCS: 36415; 80048; 85025

== ENCOUNTER 2024-01-16 00:49 | Day surgery (SDC) | payer MEDICARE, OTHER, SELFPAY ==
[2024-01-15 14:49] VITALS: BMI 32.5
[2024-01-16] VITALS (19 sets, daily range): BP systolic 120–161; BP diastolic 55–96; PULSE 62–99; RESP 11–23; TEMP 36.2–36.7; O2SAT 92–95
--- NOTE | ~2024-01-16 | XR_ITS ---
EXAMINATION: XR chest 1V portable INDICATION: Pacemaker insertion TECHNIQUE: Portable AP chest at 1238 hours COMPARISON: None available FINDINGS: The lungs are free of acute opacities. No pleural effusion or pneumothorax. The cardiomedia stinal silhouette is normal. A dual-lead cardiac pacemaker of the left chest wall ends with leads in expected locations. IMPRESSION: 1. No acute cardiopulmonary abnormality. Reviewed, dictated and finalized at location B. ONAL TRUCK DRIVER
--- NOTE | ~2024-01-16 | XR_ITS ---
XR chest 2V DATE: 01/17/2024 09:36 INDICATION: Post pacemaker insertion TECHNIQUE: PA and lateral views COMPARISON: 01/16/2024 portable AP chest FINDINGS: Left transvenous pacemaker device with leads overlying right atrium and right ventricle. Cardiomegaly. Aortic calcification and unfolding. Prominent eventration of the anterior right diaphragm. Slight blunting of the posterior costophrenic angles may represent minimal pleural effusion. No pulmo nary consolidation, pulmonary vascular congestion or pneumothorax is detected. IMPRESSION: Left bipolar pacemaker, leads in expected position Cardiomegaly, aortic atherosclerosis Prominent eventration of right diaphragm Reviewed, dictated and finalized at location A. ICER
--- NOTE | 2024-01-16 09:00 | ECG_ITS ---
Measurements Intervals [place] Rate: 67 P: 33 VT: 205 QRS: 268 QRSD: 175 T: 65 QT: 499 QTc: 527 Interpretive Statements ATRIAL SENSE- ELECTRONIC VENTRICULAR PACEMAKER VENTRICULAR PREMATURE COMPLEX NO FURTHER INTERPRETATION IS POSSIBLE ATYPICAL ECG COMPARED TO ECG 07/10/2021 09:07:01 ELECTRONIC VENTRICULAR PACEMAKER NOW PRESENT Electronically Signed On 01-16-2024 13:02:11 RESIDENTIAL SALES CONSULTANT by Hermann Kim D.O.
[2024-01-16 09:48] LABS: Basophils Percent Auto 0.5 % (0.2-1.2); Eosinophils Absolute Auto 0.1 K/mm3 (0-0.3); Eosinophils Percent Auto 1.4 % (0-4.4); Hemoglobin 15.3 g/dL (14.0-18.0); Immature Granulocyte Absolute 0.02 K/mm3 (0.00-0.031); Immature Granulocyte Percent A 0.4 % (0-0.5); Lymphocytes Absolute Auto 1.52 K/mm3 (0.9-3.2); Lymphocytes Percent Auto 27.3 % (18.3-44.2); Mean Corpuscular HGB Conc 33.3 g/dl (32-36); Mean Corpuscular Volume 87.3 fl (80-100); Mean Platelet Volume 11.3 fl (7.4-10.4); Monocytes Absolute Auto 0.5 K/mm3 (0.1-0.6); Monocytes Percent Auto 9.7 % (2.6-8.5); Neutrophils Absolute Auto 3.4 K/mm3 (1.3-6.7); Neutrophils Percent Auto 60.7 % (45.5-73.1); Platelet Count Result 161 k/mm3 (150-375); Red Blood Count 5.27 M/mm3 (4.6-6.20); Red Cell Distribution Width 13.9 % (11.5-14.5); White Blood Count 5.6 K/mm3 (4.5-10.0)
[2024-01-16 09:59] LABS: INR 1.2; Prothrombin Time 15.9 Seconds (11.1-14.7)
[2024-01-16 10:08] LABS: Anion Gap 0 mmol/L (8-16); Blood Urea Nitrogen 17 mg/dL (9-20); Calcium 9.1 mg/dL (8.4-10.2); Carbon Dioxide 30 mmol/L (22-30); Chloride 106 mmol/L (98-107); Estimated CRCL calculation 79 ml/min; Estimated Glomerular Filt Rate > 60; Glucose 101 mg/dL (65-110); Potassium 4.2 mmol/L (3.4-5.0); Sodium 136 mmol/L (137-145)
--- NOTE | 2024-01-16 10:19 | WPDMODSED ---
Moderate Sedation Note-Pt Data Patient Data Diagnosis: Asymptomatic complete heart block Present Complaint: No complaints Procedure to be performed/Plan: Implantation of pacemaker Allergies Allergy/AdvReac Type Severity Reaction Status Date / Time No Known Allergies Allergy Verified 01/15/24 14:43 Home Medications Medication Instructions Recorded Confirmed Type aspirin 81 mg tablet,delayed 81 mg PO DAILY 12/09/19 01/15/24 History release (Adult Low Dose Aspirin) acetaminophen 650 mg 650 mg PO PRN PRN Pain 07/10/21 01/15/24 History tablet,extended release (Tylenol Arthritis Pain) eewrvxmpflmo-mirzzjoc-ggqjvr tablet 1 tablet PO DAILY 07/10/21 01/15/24 History naproxen sodium 220 mg capsule 220 mg PO PRN PRN Pain 07/10/21 01/15/24 History (Aleve) clindamycin HCl 150 mg capsule 150 mg PO ONCE PRN Dental 10/08/22 01/15/24 History procedures tadalafil 20 mg tablet (Cialis) 20 mg PO DAILY PRN sexual activity 10/08/22 01/15/24 Rx #30 tabs cholecalciferol (vitamin D3) 250 250 mcg PO DAILY 11/07/22 01/15/24 History mcg (10,000 unit) tablet losartan 50 mg-hydrochlorothiazide 0.5 tablet PO DAILY #90 tabs 01/01/24 01/16/24 Rx 12.5 mg tablet atorvastatin 10 mg tablet 10 mg PO EVERY OTHER DAY 01/15/24 01/15/24 History doxazosin 4 mg tablet 4 mg PO DAILY 01/15/24 01/15/24 History finasteride 5 mg tablet 5 mg PO DAILY 01/15/24 01/16/24 History Sedation/Anesthesia: No previous sedation/anesthesia problems (including family history). [facility] Past Medical History Medical History AAA (abdominal aortic aneurysm) CT 05/08/21 - no change from 2019 Anemia DVT (deep venous thrombosis) Essential (primary) hypertension Mixed hyperlipidemia PONV (postoperative nausea and vomiting) Surgical History Surgical History History of total left knee replacement August 13, 2021 History of total right knee replacement 2014 History of umbilical hernia repair Family History Family History Father Family history of elevated blood lipids Social History Social History Smoking packs per day: 1 Smoking cigarettes per day: 20.0 Years smoked: 5 Smoking pack-years: 5.00 Smoking status: Former smoker Tobacco type: cigarettes Smoking end date: 11/10/69 Additional smoking assessment comments: last used in Alcohol intake: never Drinks per week: 2 Alcohol use details: OCCATIONAL Substance use: never Substance use type: does not use Lack of Transportation: No Lack of Food: Never True Current Housing: I Have Housing Concerned About Future Housing: No Difficulty Paying Gas/Electric Bills: No Difficulty Paying for Meds: No Currently Unemployed: No Education: Bachelor's Degree Difficulty w/ Childcare or Family Care: No Living arrangements: with family Gender identity (if verbalized by the patient): Male Spiritual care concerns: No Mod Sed Physical Exam Physical Exam Pre Procedural Exam: Normal: Appearance, Throat, Airway, Lungs, Heart Size, Heart Rhythm, Neuro Exam and Extremities and Variation: Heart Rate (Intermittent bradycardia) Hours since solid foods: 12 Hours since liquid intake: 12 Mallampati Classification: class II Internal Medicine - PN: Obj Da Vital Signs Vital Signs: Vital Signs - 24 hr 01/16/24 09:33 Temperature 36.2 C L Pulse Rate 67 Respiratory Rate 11 L Blood Pressure 161/96 H Pulse Oximetry 94 Oxygen Delivery Room Air Labs 01/16/24 09:36 01/16/24 09:36 Labs: Laboratory Results - last 24 hr 01/16/24 09:36 WBC 5.6 RBC 5.27 Hgb 15.3 Hct 46.0 MCV 87.3 MCH 29.0 MCHC 33.3 RDW 13.9 Plt Count 161 MPV 11.3 H Immature Gran % (Auto) 0.4 Neut % (Auto) 60.7 Lymph %
--- NOTE | 2024-01-16 12:17 | WPDCARDPROC ---
Cardiac Cath Procedure Note Date of procedure:: 01/16/24 Performing physician:: Driss Salazar MD Indication:: high-grade AV block including complete heart block Brief clinical history:: this is a 73-year-old man with a history of thoracic aortic aneurysm which is being followed as an outpatient conservatively. He has been found on outpatient monitoring to have evidence of AV node dysfunction including Mobitz type 1 av block as well as some episodes of third-degree AV block during sleeping hours. For this reason a pacemaker implant has been requested. Procedure Procedure performed:: Implantation of permanent dual-chamber pacemaker Sedation/Medication given:: fentanyl 50 mg Versed 2 mg case start time 10:53 a.m. case end time 12:10 p.m. sedation provided by Nguyen Pyle RN, trained observer Access site:: left subclavian vein Estimated blood loss:: 20 cc Procedure note:: patient was brought to the cardiac catheterization lab in the postabsorptive state left anterior chest wall was prepped and draped in the normal fashion for pacemaker implantation. 1% lidocaine was infiltrated below the clavicle. Following this incision was then made about an inch below the clavicle from the midclavicular line to the deltopectoral groove. Electrocautery was used to provide cutaneous hemostasis. The subcutaneous tissue was then dissected using sharp and blunt dissection and the prepectoral fascia was identified. Blunt dissection was used to create a pacemaker pocket inferior to the incision along the fascial plane. This was then packed with antibiotic soaked 4 x 4. Attention was then turned to venous access. Using the modified Seldinger the left subclavian vein was punctured twice and 2 6 Danish safe sheaths were implanted into the venous circulation. Attempts to advance the pacemaker lead from that position to the right atrium encountered resistance above the atrium in the SVC. A venogram was then performed of the sheath and the vein took a significant right angle bend at that position. For that reason I exchanged the [employer] these over the guidewires for long 22 cm 6 Danish peel-away sheaths. The sheaths were then used to advance the pacemaker leads easily into the right atrial position. Attention was then turned to the ventricular lead. A stylet was removed and 3 cc syringe was used to formulate a J-tip on the stylet this was used to steer the lead through the right ventricle out to the PA position. The 1st position the lead was in was the mid septal position which was not felt to be satisfactory a was then positioned again using the straight stylet into the right ventricular apical position. The fixation screw was then deployed and the lead was tested using analyzer with good pacing and sensing performance being demonstrated. Following this attention was turned to the atrial lead. The stylet was removed and replaced with a preformed atrial J stylet which was used to position the lead in the right atrial appendage position. After this the fixation screw was deployed in this lead was tested using the analyzer with good sensing and pacing performance. Following this the leads were secured to the base of the pocket using 2 0 silk ties and the suture sleeves on the leads. The retained sponge was removed from the pocket and the pocket was irrigated with antibiotic infused saline. The pacemaker device was connected to the leads using the torque wrench and higher assembly was placed into the newly created pocket. This was then closed in layers using 3-0 Vicryl in an interrupted fashion for the subcutaneous tissue and 4-0 Vicryl in a running subcuticular fashion for the skin. The wound was dressed with an Aquacel dressing the left arm was placed in an immobilizer. Postop antibiotics analgesics chest x-ray and EKG were ordered. Procedure was well tolerated and uncomplicated. Findings:: The patient received a Biotronik dual-chamber pacemake
[2024-01-16] MEDS: METOPROLOL SUCCINATE EXT REL 50 MG TABCR PO (16:17)
[2024-01-16] MEDS: SODIUM CHLORIDE 0.9% IV 1,000 ML 50 ML IV CONT (16:28)
--- NOTE | 2024-01-16 16:36 | ADMGEN ---
This patient, Guy Gates, was admitted to IMU Room 212-01. Patient/family oriented to hospital policies and general routines including ID bracelet, bed and alarms, visiting hours, pain management, procedures, bathroom and other care routines, personal items, smoking policy, room service/diet, and visiting hours. Information on how to activate the Rapid Response Team has been discussed. Patient/Family are encouraged to report perceived risks to care and to ask questions if they do not understand what they are told or what they should do.
[2024-01-16] MEDS: ceFAZolin 1 GM/NS 50 ML 1 GM/50 ML BAG IVPB (17:54)
[2024-01-16] MEDS: ACETAMINOPHEN 325 MG TABLET 650 MG PO (18:45)
[2024-01-16] MEDS: HYDROcodone/acetaminophen (*CRX) 5-325 MG TABLET 2 TAB PO (21:18)
[2024-01-17] VITALS (9 sets, daily range): BP systolic 150–152; BP diastolic 84–89; PULSE 60–65; RESP 14–16; TEMP 36.2; O2SAT 93–94
[2024-01-17] MEDS: ceFAZolin 1 GM/NS 50 ML 1 GM/50 ML BAG IVPB (02:29)
[2024-01-17] MEDS: HYDROcodone/acetaminophen (*CRX) 5-325 MG TABLET 2 TAB PO (06:57)
[2024-01-17] MEDS: METOPROLOL SUCCINATE EXT REL 50 MG TABCR PO (08:47)
--- NOTE | 2024-01-17 09:17 | PM.DS ---
DS: Admitting Diagnosis Discharge Date 01/17/2024 Admitting Diagnosis High-grade AV block including complete heart block DS: Discharge Diagnosis Discharge Diagnosis (1) S/P placement of cardiac pacemaker: Code(s): Z95.0 - Presence of cardiac pacemaker Status: Acute DS: Summary Hospital Course Hospital Course: Patient presented as an outpatient for implantation of permanent dual-chamber pacemaker. He was kept overnight for observation. No post-procedural issues. Patient does have frequent PVCs prior to the procedure and following pacemaker implant.? Restarted Metoprolol to attempt to suppress this ectopic activity now that pacemaker has been implanted. Status at Discharge Cognitive/behavioral status at discharge: Stable Functional status at discharge: independent ambulation Overall status at discharge: patient is back to baseline Time Spent with Patient Time attestation: Total time spent providing and/or coordinating discharge services: Exam Const: General: comfortable and no acute distress HENMT: Mouth: Yes moist mucous membranes Eyes: General: appearance normal, both eyes and all related structures Sclera: sclerae normal Resp: Effort & Inspection: normal respiratory effort Cardio: Rate: regular rate Rhythm: regular rhythm Skin: General skin exam: normal color Other: Pacemaker site with clean dressing, no hematoma Psych: Mental Status: mental status grossly normal Affect: normal affect DS: Data Data Completed and Pending Labs on day of discharge: Labs from last 24 hours 01/16/24 09:36 WBC 5.6 RBC 5.27 Hgb 15.3 Hct 46.0 MCV 87.3 MCH 29.0 MCHC 33.3 RDW 13.9 Plt Count 161 MPV 11.3 H Immature Gran % (Auto) 0.4 Neut % (Auto) 60.7 Lymph % (Auto) 27.3 [place] % (Auto) 9.7 H Eos % (Auto) 1.4 Baso % (Auto) 0.5 Lymph # (Auto) 1.52 [place] # (Auto) 0.5 Eos # (Auto) 0.1 Baso # (Auto) 0.0 Abs Immat Gran (auto) 0.02 Absolute Neuts (auto) 3.4 Absolute Nucleated RBC 0.0 Nucleated RBC % 0.0 PT 15.9 H INR 1.2 Sodium 136 L Potassium 4.2 Chloride 106 Carbon Dioxide 30 Anion Gap 0 L BUN 17 Creatinine 0.90 Estim Creat Clear Calc 79 Estimated GFR > 60 Glucose 101 Calcium 9.1 Discharge Plan Discharge Patient Disposition: Home, Self-Care Discharge Instructions: [facility] [address] [place] [address] DISCHARGE INSTRUCTIONS - POST PACEMAKER Activity 1. No driving until you are seen in the office for your incision check. 2. No lifting, pushing or pulling more than 5 pounds with affected arm for 1 MONTH 3. No lifting affected arm above shoulder height for 1 MONTH 4. Wear immobilizer/sling only if you are unable to remember the above activity restrictions. Recommend that it be worn at night. 5. You may shower AFTER you are seen for incision check but no tub baths, swimming pool or hot tub for 1MONTH Wound Care 1. Do not attempt to remove the Aquacel dressing. Leave dressing undisturbed until incision check at the office visit. Keep dressing dry. 2. When you are able to shower AFTER you are seen for your incision check in the office do not rub or scrub the incision. Pat dry after shower. NO lotions, powders, creams or ointments are to be applied to the incision 3. A small amount of tenderness, puffiness and bruising around the site is normal. Call if any significant pain, drainage, swelling, or redness around the site *For any other
== END 2024-01-17 13:51 | disposition home or self-care (01) ==
LOC: ANHCATHLAB 09:08 → ANHIMU 15:31
PROVIDERS: PCP Internal Medicine; Visit Provider Specialist
PROC: 0JH606Z Insertion of Pacemaker, Dual Chamber into Chest Subcutaneous Tissue and Fascia, Open Approach (ICD-10-PCS; CPT 33208; principal; 2024-01-16 10:30)
DX: I44.2 Atrioventricular block, complete (principal); I71.20 Thoracic aortic aneurysm, without rupture, unspecified; I10 Essential (primary) hypertension; E78.2 Mixed hyperlipidemia; Z79.82 Long term (current) use of aspirin; Z86.718 Personal history of other venous thrombosis and embolism; Z87.891 Personal history of nicotine dependence
CPT/HCPCS: 33208; 36415; 71045; 71046; 80048; 85025; 85610; 93005; A9270; C1779; C1785; J0690; J2250; J3010; J7030; J7040

== ENCOUNTER 2024-03-29 13:40 | Outpatient (CLI) | payer MEDICARE, OTHER, SELFPAY ==
[2024-03-29 20:38] LABS: Prostate Specific Antigen 3.6 ng/mL (< OR = 4.0)
== END 2024-03-29 13:41 | disposition home or self-care (01) ==
LOC: ANHGOSHLAB 13:42
PROVIDERS: PCP Internal Medicine; Visit Provider Internal Medicine
DX: R97.20 Elevated prostate specific antigen [PSA] (principal)
CPT/HCPCS: 36415; 84153

== ENCOUNTER 2024-03-31 10:47 | Outpatient (CLI) | payer MEDICARE, OTHER, SELFPAY ==
[2024-03-31 16:50] LABS: Kit Draw Collected
== END 2024-03-31 10:48 | disposition home or self-care (01) ==
LOC: ANHGOSHLAB 10:48
PROVIDERS: PCP Internal Medicine; Visit Provider Internal Medicine
DX: Z76.89 Persons encountering health services in other specified circumstances (principal)
CPT/HCPCS: 36415

== ENCOUNTER 2024-06-15 01:22 | Day surgery (SDC) | payer MEDICARE, OTHER, SELFPAY ==
[2024-06-14 12:13] VITALS: BMI 32.3
[2024-06-15] VITALS (7 sets, daily range): BP systolic 121–132; BP diastolic 78–92; PULSE 60–75; RESP 13–20; TEMP 36.3; O2SAT 95–99; BMI 33.5
--- NOTE | 2024-06-15 08:30 | ECG_ITS ---
Test Date: 2024-06-15 08:43:43 Measurements Intervals [place] Rate: 75 P: 0 [place]: 0 QRS: -83 QRSD: 190 T: 71 QT: 476 QTc: 534 Interpretive Statements ELECTRONIC VENTRICULAR PACEMAKER UNDERLYING RHYTHM APPEARS TO BE ATRIAL FIBRILLATION No previous ECG available for comparison Electronically Signed On 06-15-2024 14:49:22 CDT by Khai Zuluaga M.D.
[2024-06-15 09:19] LABS: Anion Gap 8 mmol/L (4-12); Blood Urea Nitrogen 23 mg/dL (9-20); Calcium 8.2 mg/dL (8.4-10.2); Carbon Dioxide 25 mmol/L (22-30); Chloride 105 mmol/L (98-107); Estimated CRCL calculation 79 ml/min; Estimated Glomerular Filt Rate > 60; Glucose 102 mg/dL (65-110); Magnesium 1.9 mg/dL (1.6-2.3); Potassium 4.3 mmol/L (3.4-5.0); Sodium 138 mmol/L (137-145)
--- NOTE | 2024-06-15 10:15 | ECG_ITS ---
Test Date: 2024-06-15 10:14:38 Measurements Intervals [place] Rate: 63 P: 235 ND: 177 QRS: 268 QRSD: 194 T: 71 QT: 514 QTc: 528 Interpretive Statements ELECTRONIC ATRIAL PACEMAKER ELECTRONIC VENTRICULAR PACEMAKER Compared to ECG 06/15/2024 08:43:43 Atrial fibrillation no longer present Electronically Signed On 06-15-2024 14:50:21 CDT by Khai Zuluaga M.D.
--- NOTE | 2024-06-15 10:16 | WPDHPUPDATE1 ---
History and Physical Update Update Date/Time: 06/15/24 10:16 History and Physical has been reviewed, including an updated exam of the patient. There are NO changes in the patient's condition. Risks, benefits, and alternatives have been discussed and questions answered. Patient agrees to proceed with procedure.
--- NOTE | 2024-06-15 10:16 | WPDMODSED ---
Moderate Sedation Note-Pt Data Patient Data Diagnosis: Atrial fibrillation Present Complaint: Atrial fibrillation Procedure to be performed/Plan: Synchronized electrical cardioversion Allergies Allergy/AdvReac Type Severity Reaction Status Date / Time No Known Allergies Allergy Verified 06/14/24 12:41 Home Medications Medication Instructions Recorded Confirmed Type acetaminophen 650 mg 650 mg PO PRN PRN Pain 07/10/21 06/14/24 History tablet,extended release (Tylenol Arthritis Pain) aoriiarkvcor-mrulhwct-photfc tablet 1 tablet PO DAILY 07/10/21 06/14/24 History naproxen sodium 220 mg capsule 220 mg PO PRN PRN Pain 07/10/21 06/14/24 History (Aleve) clindamycin HCl 150 mg capsule 150 mg PO ONCE PRN Dental 10/08/22 06/14/24 History procedures tadalafil 20 mg tablet (Cialis) 20 mg PO DAILY PRN sexual activity 10/08/22 06/14/24 Rx #30 tabs atorvastatin 10 mg tablet 10 mg PO EVERY OTHER DAY 01/15/24 06/14/24 History doxazosin 4 mg tablet 4 mg PO HS 01/15/24 06/14/24 History apixaban 5 mg tablet (Eliquis) 5 mg PO BID 03/29/24 06/15/24 History psyllium husk 0.52 gram capsule 0.52 g PO BID 03/29/24 06/14/24 History (Daily Fiber) finasteride 5 mg tablet 5 mg PO DAILY #90 tabs 05/14/24 06/14/24 Rx losartan 50 mg-hydrochlorothiazide 1 tablet PO DAILY PRN high blood 06/14/24 06/14/24 History 12.5 mg tablet pressure metoprolol succinate 50 mg 50 mg PO HS 06/14/24 06/14/24 History tablet,extended release 24 hr Current Medications: Active Medications Sodium Chloride (Normal Saline Iv) 1,000 mls @ 30 mls/hr IV CONT .Q24H WAQAS Sedation/Anesthesia: No previous sedation/anesthesia problems (including family history). [facility] Past Medical History Medical History AAA (abdominal aortic aneurysm) CT 05/08/21 - no change from 2019 Afib Anemia DVT (deep venous thrombosis) Essential (primary) hypertension Increased prostate specific antigen (PSA) velocity Mixed hyperlipidemia Pacemaker PONV (postoperative nausea and vomiting) Surgical History Surgical History History of total left knee replacement August 13, 2021 History of total right knee replacement 2014 History of umbilical hernia repair Family History Family History Father Family history of elevated blood lipids Social History Social History Smoking packs per day: 1 Smoking cigarettes per day: 20.0 Years smoked: 5 Smoking pack-years: 5.00 Smoking status: Former smoker Tobacco type: cigarettes Second hand tobacco smoke exposure: Yes Additional smoking assessment comments: last used in Alcohol intake: current Drinks per week: 2 Alcohol use details: OCCATIONAL Substance use: never Substance use type: does not use Do You Feel Safe in your Home?: Yes Lack of Transportation: No Lack of Food: Never True Current Housing: I Have Housing Concerned About Future Housing: No Difficulty Paying Gas/Electric Bills: No Difficulty Paying for Meds: No Currently Unemployed: No Education: Bachelor's Degree Difficulty w/ Childcare or Family Care: No Living arrangements: with family Gender identity (if verbalized by the patient): Male Spiritual care concerns: No Mod Sed Physical Exam Physical Exam Pre Procedural Exam: Normal: Appearance, Lungs, Neuro Exam, Extremities and Skin and Variation: Heart Rate (Atrial fibrillation, ventricular paced rhythm ) and Heart Rhythm (Atrial fibrillation, ventricular paced rhythm) Hours since solid foods: 12 Hours since liquid intake: 8 Mallampati Classification: class III Internal Medicine - PN: Obj Da Vital Signs Vital Signs: Vital Signs - 24 hr 06/15/24 08:50 06/15/24 10:05 06/15/24 10:10 Temperature 36.3 C L Pulse Rate 74 75 72 Resp
--- NOTE | 2024-06-15 10:17 | P.PCNCVR_ITS ---
Cardioversion Cardioversion Date of procedure: 06/15/24 Procedure: Synchronized electrical cardioversion Pre-op diagnosis: Atrial fibrillation Post-op diagnosis: Other (Successful cardioversion to sinus rhythm. ) Indications: Atrial fibrillation Description of procedure: Written informed consent obtained. Defibrillator pads placed in an anterior- posterior position. Time out performed by SYDNIE Soto. Total of Propofol 60mg IV was administered by me. Once patient was adequately sedated, synchronized electrical cardioversion was performed with 1 shock at 250 joules, which successfully restored sinus rhythm. Patient's hemodynamics and respiratory status was monitored throughout the procedure. No periprocedural complications. Procedure start time: 10:05 AM Procedure end time: 10:12 AM Sedation: Total of Propofol 60mg IV was administered by me. Findings: Successful synchronized electrical cardioversion to sinus rhythm with 1 shock at 250 joules. Conclusion: Successful synchronized electrical cardioversion to sinus rhythm with 1 shock at 250 joules.
--- NOTE | 2024-06-15 10:42 | SUR.PHASEII ---
pt does not need 1 week f/u EKG in cardiology office but can return in Nov per previously scheduled appointment. Verbal request per Dr. Khai Zuluaga
== END 2024-06-15 11:15 | disposition home or self-care (01) ==
PROVIDERS: PCP Internal Medicine; Visit Provider Internal Medicine
PROC: 5A2204Z Restoration of Cardiac Rhythm, Single (ICD-10-PCS; principal; 2024-06-15 10:00)
DX: I48.91 Unspecified atrial fibrillation (principal); I71.40 Abdominal aortic aneurysm, without rupture, unspecified; D64.9 Anemia, unspecified; I10 Essential (primary) hypertension; E78.2 Mixed hyperlipidemia; Z95.0 Presence of cardiac pacemaker; Z86.718 Personal history of other venous thrombosis and embolism; Z79.01 Long term (current) use of anticoagulants; Z87.891 Personal history of nicotine dependence
CPT/HCPCS: 36415; 80048; 83735; 92960; J2704; J7030

== ENCOUNTER 2024-09-29 10:51 | Outpatient (CLI) | payer MEDICARE, OTHER, SELFPAY | END 2024-09-29 10:52 | disposition home or self-care (01) | LOC: ANHAUDIO 10:52 | PROVIDERS: PCP Internal Medicine; Visit Provider Otolaryngology | DX: H90.3 Sensorineural hearing loss, bilateral (principal); H93.13 Tinnitus, bilateral | CPT/HCPCS: 92557; 92567 ==

== ENCOUNTER 2024-11-25 08:54 | Outpatient (CLI) | payer MEDICARE, OTHER, SELFPAY ==
--- OUTSIDE RECORDS SUMMARY | 2024-12-02 01:49 | XMS_ITS | Clinical Summary ---
Author Organization [facility] Address [address] [place] [address] Care Team Providers Care Business Representative Name Role Phone Emiliano Garza DO Primary Care Provider [phone] Source Comments [facility],non-owned Affiliates and Associated Physician Practices is amultiple site organization consisting of ambulatory clinics and hospital sitesin [place], [place], [place] and [place]. This disclosure is being madepursuant to the Care Everywhere program and may not contain all information available regarding this patient. Last updated 18.[facility] Allergies No known active allergies Medications * Be aware that medications may not be up to date on this document. Alwaysverify current medications with the patient. Medication Sig Dispensed Refills Start Date End Date Status apixaban (Eliquis) 5 MG tablet Take 1 (one) tablet by mouth 2 times daily 03/02/2024 Active Calcium Carb-Cholecalciferol (Calcium/Vitamin D) 600-400 MG-UNIT TABS Take 1 tablet by mouth once daily Active clindamycin (Cleocin) 150 MG capsule Take 1 (one) capsule by mouth as needed (dental procedures) Active doxazosin (Cardura) 4 MG tablet 03/08/2024 Active finasteride (Proscar) 5 MG tablet 05/14/2024 Active metoprolol succinate XL 24hr (Toprol XL) 50 MG tablet Take 1 (one) tablet by mouth once daily 05/14/2024 01/31/2026 Active atorvastatin (Lipitor) 10 MG tablet 01/01/2024 Active acetaminophen CR (Tylenol Arthritis Pain) 650 MG tablet Take 1 (one) tablet by mouth as needed Active naproxen sodium (Aleve) 220 MG tablet Take 1 (one) tablet by mouth as needed Active psyllium (Metamucil) CAPS capsule Take 1.04 g by mouth 2 times daily Active losartan (Cozaar) 100 MG tablet Take 1 (one) tablet by mouth once daily 09/14/2024 Active dofetilide (Tikosyn) 500 MCG capsule Take 1 (one) capsule by mouth 2 times daily 09/24/2024 12/23/2024 Active tadalafil (Cialis) 20 MG tablet Take 1 (one) tablet by mouth once as needed (before sex for a better erection) 10 tablet 3 11/23/2024 Active Encounters Date Type Department Care Team Description 11/23/2024 3:40 PM OPERATIONS AGENT Office Visit [facility] - Urology [address] [place] [address] Abiodun Jean PA Erectile dysfunction, unspecified erectile dysfunction type (Primary Dx); Testicular mass 11/23/2024 Travel 11/16/2024 Orders Only [facility] - Urology [address] [place] [phone] Elizabeth Pool LPN Elevated PSA 11/09/2024 Orders Only [facility] - Urology [address] [place] [phone] Elizabeth Pool LPN 10/15/2024 Telephone [facility] PHYS SURGERY [address] [place] [address] Brando Sky MD Results 10/13/2024 11:37 AM OPERATIONS AGENT Anesthesia Event [facility] [address] [place] [phone] Naman Jacob MD Rinderer, Mallory, APRN-SHIP ENGINES OPERATING ENGINEER 10/13/2024 11:10 AM OPERATIONS AGENT - 10/13/2024 11:55 AM OPERATIONS AGENT Surgery [facility] [address] [place] [phone] Brando Sky MD Magnetic Resonance Imaging fusion transperineal prostate biopsy 10/13/2024 9:34 AM OPERATIONS AGENT - 10/13/2024 12:47 PM OPERATIONS AGENT Hospital Encounter [facility] [address] [place] [address] Brando Sky MD Surgery General Discharge Disposition: Home or Self Care 10/13/2024 Travel 09/17/2024 Orders Only [facility] - Urology [address] [place] [address], [place] [phone] Abiodun Jean PA Elevated PSA 09/15/2024 Orders Only [facility] - Urology [address] [place] [address], [place] [phone] Elizabeth Pool LPN 09/15/2024 Orders Only [facility] - Urology [address] [place] [phone] Elizabeth Pool LPN 09/15/2024 Orders Only [facility] - Urology [address] [place] [phone] Abiodun Jean PA 09/14/2024 Telephone [facility] - [facility]rology [address] [place] [phone] Abiodun Jean PA Follow-up 09/13/2024 Telephone [facility]rology [address] [place] [phone] Abiodun Jean PA Follow-up from Last 3 Months Social History Tobacco Use Types Packs/Day Years Used Date Smoking Tobacco: Former Cigarettes 1 5 1 973 - 1977 Smokeless Tobacco: Never Tobacco Cessation:Counseling Given: Not Answered Alcohol Use Standard Drinks/Week Comments Yes 0 (1 standard drink = 0.6 oz pur e alcohol) social intake AUDIT-C Answer Date Recorded Q1: How often do you have a drink containing alc ohol? Monthly or less 10/13/2024 Q2: How many drinks containi ng alcohol do you have on a typical day when you are drinking? 1 or 2 10/13/2024 Q3: How often do you have si x or more drinks on one occasion? Never 10/13/2024 Sex and Gender Information Value Date Recorded Sex Assigned at Male 04/12/2024 3:00 PM CDT Gender Identity Male 04/12/2024 3:00 PM CDT Sexual Orientation Straight 04/12/2024 3: 00 PM CDT Last Filed Vital Signs Vital Sign Reading Time Taken Comments Blood Pressure 144/83 11/23/2024 3:18 PM OPERATIONS AGENT Pulse 59 11/23/2024 3:18 PM OPERATIONS AGENT Temperature 36.9 ??C (98.4 ??F) 11/23/2024 3:18 PM CS T Respiratory Rate 18 10/13/2024 12:31 PM OPERATIONS AGENT Oxygen Saturation 95% 11/23/2024 3:18 PM OPERATIONS AGENT Inhaled Oxygen Concentration - - Weight 103 kg (227 lb) 11/23/2024 3:18 PM OPERATIONS AGENT Height 180.3 cm (5' 11 ) 11/23/2024 3:18 PM OPERATIONS AGENT Body Mass Index 31.66 11/23/2024 3:18 PM OPERATIONS AGENT Plan of Treatment Upcoming Encounters Date Type Department Care Team (Late st Contact Info) Description 10/18/2025 3:00 PM OPERATIONS AGENT Office Visit [facility] - [facility] [address] [place] [address] Abiodun Jean PA [address] [place] [address] Health Maintenance Due Date Last Done Comments COLOGUARD (AGES 45-75) - COL ON CA SCREENING 1950 COLON MONITORING 1950 COLONOSCOPY - COLON CA SCREENING 1950 CT COLONOGRAPHY - COLON CA SCREENING 1950 Colorectal Cancer Screening 1950 FIT - COLON CA SCREENING 1950 FLEX SIG - COLON CA SCREENING 1950 MEDICARE AWV ? 12 MONTHS 1950 HEPATITIS C SCREENING 05/21/1968 DTAP/TDAP/TD VACCINES (1 - Tdap) 1969 PNEUMOCOCCAL VACCINE 50+ (1 of 1 - PCV) 2000 ZOSTER VACCINE (1 of 2) 2000 AAA SCREENING 2015 COVID-19 VACCINE (1 - 2023-2 5 season) 2024 INFLUENZA VACCINE (#1) 2024 DEPRESSION SCREENING 11/10/2024 Respiratory Syncytial Virus (RSV) Vaccine Pt: or over 60 yrs (1 - 1-dose 75+ series) 2025 HEPATITIS B VACCINE Aged Out No longe r eligible based on patient's age to complete this topic HIB VACCINE Aged Out No longer eligi ble based on patient's age to complete this topic HPV VACCINE Aged Out No longer eligi ble based on patient's age to complete this topic MENINGOCOCCAL (Group B) VACCINE Aged Out No longer eligible based on patient's age to complete this topic MENINGOCOCCAL VACCINE Aged Out No tiffani kassie eligible based on patient's age to complete this topic Medical Devices Implanted Type Area Buhr Dresser Device Identifier Shelf Expiration Date Model / Serial / Lot Rama Crow Dr-T-01/16/2024 Implanted:01/16/20 (Quantity not on file) [employer] [id number] / [id number] / Description:MRI conditional to 1.5T or 3T-LT 06/23/24 Lead Solia S 60-01/16/2024 Implanted:01/16/20 (Quantity not on file) [employer] [id number] / / Lead Solia S 53-01/16/2024 Implanted:01/16/20 (Quantity not on file) [employer] [id number] / / Procedures Procedure Name Priority Date/Time Associated Diagnosis Comments PATHOLOGY TISSUE Routine 10/13/2024 11:4 2 AM OPERATIONS AGENT Elevated PSA ME MR GUIDANCE NEEDLE PLACEMENT 10/13/2024 11:31 AM OPERATIONS AGENT Elevated PSA Case Notes PAT ? [facility] (Mac) LABS NONE REQ MRI 08/05/2024 @[facility] Special Needs POSITIONING CHECK PREFERENCE CARD, [facility], Fortec# [id number] TP/UroNav System ME 3D RENDER W/INTRP POSTPROCES 10/13/2024 11:31 AM OPERATIONS AGENT Elevated PSA Case Notes PAT ? CORE[facility] (Mac) LABS NONE REQ MRI 08/05/2024 @[facility] Special Needs POSITIONING CHECK PREFERENCE CARD, MAC, Fortec# [id number] TP/UroNav System ME US GUIDED NEEDLE PLACEMENT 10/13/2024 11:31 AM OPERATIONS AGENT Elevated PSA Case Notes PAT ? COREY (Mac) LABS NONE REQ MRI 08/05/2024 @[facility] Special Needs POSITIONING CHECK PREFERENCE CARD, MAC, Fort[employer]# [id number] TP/UroNav System ME PROSTATE SATURATION SAMPLING 10/13/2024 11:31 AM OPERATIONS AGENT Elevated PSA Case Notes PAT ? CORE[facility] (Mac) LABS NONE REQ MRI 08/05/2024 @[facility] Special Needs POSITIONING CHECK PREFERENCE CARD, MAC, Fort[employer]# [id number] TP/UroNav System ME BIOPSY OF PROSTATE,NEEDLE/PU NCH 10/13/2024 11:31 AM OPERATIONS AGENT Elevated PSA Case Notes PAT ? COREY (Mac) LABS NONE REQ MRI 08/05/2024 @[facility] Special Needs POSITIONING CHECK PREFERENCE CARD, MAC, Fort[employer]# [id number] TP/UroNav System from Last 3 Months Results * PATHOLOGY TISSUE (10/13/2024 11:42 AM OPERATIONS AGENT) Case Report Surgical Pathology Report ? Case: [id number] ? Authorizing Provider: ??Brando Sky MD ?Collected: ? 10/13/2024 11:42 AM ? Ordering Location: ? [facility] ? Received: ?10/14/2024 07:33 AM ? Pathologist: ? Callie Lewis MD ? Specimens: ?? A) - Prostate Biopsy, Right Anterior Lateral ? B) - Prostate Biopsy, Right Anterior Medial ? C) - Prostate Biopsy, Right Posterior Lateral ? D) - Prostate Biopsy, Right Posterior Medial ? E) - Prostate Biopsy, Right Lateral Base ? F) - Prostate Biopsy, Right Medial Base ? G) - Prostate Biopsy, Left Anterior Lateral ? H) - Prostate Biopsy, Left Anterior Medial ? I) - Prostate Biopsy, Left Posterior Lateral ? J) - Prostate Biopsy, Left Posterior Medial ? K) - Prostate Biopsy, Left Lateral Base ? L) - Prostate Biopsy, Left Medial Base ? M) - Prostate Biopsy, Region of Interest #1 ? 10/15/2024 8:44 AM [facility] Final Diagnosis Prostate, right anterior lateral, biopsy (A): - Benign prostatic tissue Prostate, right anterior medial, biopsy (B): - Benign skeletal muscle Prostate, right posterior lateral, biopsy (C): - Benign prostatic tissue Prostate, right posterior medial, biopsy (D): - Benign fibrous tissue and skeletal muscle Prostate, right lateral base, biopsy (E): - Benign fibrous tissue and skeletal muscle Prostate, right medial base, biopsy (F): - Benign fibrous tissue and skeletal muscle Prostate, left anterior lateral, biopsy (G): - Benign fibrous tissue and skeletal muscle Prostate, left anterior medial, biopsy (H): - Benign prostatic tissue Prostate, left posterior lateral, biopsy (I): - Benign prostatic tissue Prostate, left posterior medial, biopsy (J): - Benign fibrous tissue and skeletal muscle Prostate, left lateral base, biopsy (K): - Benign fibrous tissue and skeletal muscle Prostate, left medial base, biopsy (L): - Benign prostatic tissue Prostate, region of interest #1, biopsy (M): - Benign prostatic tissue 10/15/2024 8:44 AM [facility] Microscopic Description and Comment Microscopic examination substantiates the diagnosis. 10/15/2024 8:44 AM [facility] Clinical History The patient is a 74 year oldmale with elevated PSA of 3.04 on Finesteride with PIRADS 4 lesion on MRI and 51cc prostate. 10/15/2024 8:44 AM [facility] Gross Description The requisition and specimen(s) are identified with the patient's name Guy Gates . Received in formalin, specimen A, right anterior later+ , consists of 5 camacho-white tissue fragments, 0.1-0.5 cm and 0.7 x 0.3 x 0.1 cm in aggregate, submitted in toto in cassette A1. Received in formalin, specimen B , right anterior medial , consists of 3 camacho-white tissue fragments, 0.1-0.3 cm and 0.5 x 0.3 x 0.2 cm in aggregate, submitted in toto in cassette B1. Received in formalin, specimen C , right posterior late+ , consists of 4 camacho-white tissue fragments, 0.2-0.9 cm and 0.9 x 0.3 x 0.1 cm in aggregate, submitted in toto in cassette C1. Received in formalin, specimen D , right posterior medi , consists of 2 camacho-white cylindrical core biopsies, 0.3 cm and 0.5 cm length x each 0.1 cm diameter, submitted in toto in cassette D1. Received in formalin, specimen E , right lateral base , consists of a 0.7 cm length x 0.1 cm diameter camacho-white cylindrical core biopsy, submitted in toto in cassette B1. Received in formalin, specimen F , right medial base , consists of 3 camacho-white tissue fragments, 0.1-0.9 cm and 0.9 x 0.2 x 0.1 cm in aggregate, submitted in toto in cassette F1. Received in formalin, specimen G, 'left anterior lateral' consists of a 0.9 cm length x 0.1 cm diameter camacho-white cylindrical core biopsy, submitted in toto in cassette G1. Received in formalin, specimen H, 'left anterior medial' consists of a 1.0 cm length x 0.1 cm diameter camacho-white cylindrical core biopsy, submitted in toto in cassette H1. Received in formalin, specimen I , left posterior later+ , consists of 2 camacho-white tissue fragments, 0.2 x 0.1 x 0.1 cm and 0.3 x 0.2 x 0.1 cm, submitted in toto in cassette I1. Received in formalin, specimen J , left posterior medial , consists of 2 camacho-white tissue fragments, 0.2 x 0.1 x 0.1 cm and 0.3 x 0.1 x 0.1 cm, submitted in toto in cassette J1. Received in formalin, specimen K , left lateral base , consists of 3 camacho-white tissue fragments, 0.1-1.1 cm and 1.1 x 0.2 x 0.1 cm in aggregate, submitted in toto in cassette K1. Received in formalin, specimen L, 'left medial base' consists of a 1.1 cm length x 0.1 cm diameter camacho-white cylindrical core biopsy, submitted in toto in cassette L1. Received in formalin, specimen M , region of interest #1 , consists of 5 camacho-white tissue fragments, 0.1-0.3 cm and 0.5 x 0.2 x 0.1 cm, submitted in toto in cassette M1./THOMAS 10/15/2024 8:44 AM [facility] Pathologist Location at [facility] 10/15/2024 8:44 AM [facility] Disclaimer The performance characteristics of all immunohistochemical and indirect immunofluorescence stains (if any) cited in this report were determined by the Histopathology Laboratory of [facility]. Some of these tests were developed by our own laboratory and have not been cleared or approved by the US Food and Drug Administration. The FDA does not require this test to go through premarket FDA review. These tests are used for clinical purposes. They should not be regarded as investigational or for research. This laboratory is certified under the Clinical Laboratory Improvement Amendments (CLIA) as qualified to perform high complexity clinical laboratory testing. This case has been personally reviewed and interpreted by the attending (teaching) pathologist. 10/15/2024 8:44 AM [facility] Embedded Images 10/15/2024 8:44 AM [facility] Biopsy, Needle BIOPSY OF PROSTATE / Unknown 10/13/2024 11:42 AM OPERATIONS AGENT 10/14/2024 7:33 AM OPERATIONS AGENT Comment:Pre-op diagnosis: Elevated PSA Biopsy, Needle BIOPSY OF PROSTATE / Unknown 10/13/2024 11:42 AM OPERATIONS AGENT 10/14/2024 7:33 AM OPERATIONS AGENT Comment:Pre-op diagnosis: Elevated PSA Biopsy, Needle BIOPSY OF PROSTATE / Unknown 10/13/2024 11:42 AM OPERATIONS AGENT 10/14/2024 7:33 AM OPERATIONS AGENT Comment:Pre-op diagnosis: Elevated PSA Biopsy, NOS BIOPSY OF PROSTATE / Unknown 10/13/2024 11:42 AM OPERATIONS AGENT 10/14/2024 7:33 AM OPERATIONS AGENT Comment:Pre-op diagnosis: Elevated PSA Biopsy, Needle BIOPSY OF PROSTATE / Unknown 10/13/2024 11:42 AM OPERATIONS AGENT 10/14/2024 7:33 AM OPERATIONS AGENT Comment:Pre-op diagnosis: Elevated PSA Biopsy, Needle BIOPSY OF PROSTATE / Unknown 10/13/2024 11:42 AM OPERATIONS AGENT 10/14/2024 7:33 AM OPERATIONS AGENT Comment:Pre-op diagnosis: Elevated PSA Biopsy, Needle BIOPSY OF PROSTATE / Unknown 10/13/2024 11:42 AM OPERATIONS AGENT 10/14/2024 7:33 AM OPERATIONS AGENT Comment:Pre-op diagnosis: Elevated PSA Biopsy, Needle BIOPSY OF PROSTATE / Unknown 10/13/2024 11:42 AM OPERATIONS AGENT 10/14/2024 7:33 AM OPERATIONS AGENT Comment:Pre-op diagnosis: Elevated PSA Biopsy, Needle BIOPSY OF PROSTATE / Unknown 10/13/2024 11:42 AM OPERATIONS AGENT 10/14/2024 7:33 AM OPERATIONS AGENT Comment:Pre-op diagnosis: Elevated PSA Biopsy, Needle BIOPSY OF PROSTATE / Unknown 10/13/2024 11:42 AM OPERATIONS AGENT 10/14/2024 7:33 AM OPERATIONS AGENT Comment:Pre-op diagnosis: Elevated PSA Biopsy, Needle BIOPSY OF PROSTATE / Unknown 10/13/2024 11:42 AM OPERATIONS AGENT 10/14/2024 7:33 AM OPERATIONS AGENT Comment:Pre-op diagnosis: Elevated PSA Biopsy, Needle BIOPSY OF PROSTATE / Unknown 10/13/2024 11:42 AM OPERATIONS AGENT 10/14/2024 7:33 AM OPERATIONS AGENT Comment:Pre-op diagnosis: Elevated PSA Biopsy, Needle BIOPSY OF PROSTATE / Unknown 10/13/2024 11:42 AM OPERATIONS AGENT 10/14/2024 7:33 AM OPERATIONS AGENT Comment:Pre-op diagnosis: Elevated PSA Brando Sky MD LAB - PATHOLOGY/CY TOLOGY ORDERABLES [facility] [address] [facility] [place] [address], [facility] [phone] from Last 3 Months Care Teams Business Representative Relationship Specialty Start Date End Date Emiliano Garza DO [address] [place] [id number] PCP - General Internal Medicine 06/16/24
--- OUTSIDE RECORDS SUMMARY | 2024-12-02 01:49 | XMS_ITS | Referral Summary ---
Author Organization [facility] Address [address] [place] [address] Care Team Providers Care Veterinarian Laboratory Animal Care Name Role Phone Emiliano Garza DO Primary Care Provider [phone] Source Comments [facility],non-owned Affiliates and Associated Physician Practices is amultiple site organization consisting of ambulatory clinics and hospital sitesin [place], [place], [place] and [place]. This disclosure is being madepursuant to the Care Everywhere program and may not contain all information available regarding this patient. Last updated 18.[facility] Encounters Date Type Department Care Team Description 11/23/2024 Travel 11/23/2024 3:40 PM CLINICAL SUPERVISOR Office Visit [facility] - [facility]rology [address] [place] [phone] Abiodun Jean PA Erectile dysfunction, unspecified erectile dysfunction type (Primary Dx); Testicular mass 11/16/2024 Orders Only [facility] - [facility]rology [address] [facility], [place] [phone] Elizabeth Pool LPN Elevated PSA 11/09/2024 Orders Only [facility] [address] [place] [phone] Elizabeth Pool LPN 10/15/2024 Telephone [facility] SUR[facility] [address] [place] [phone] Brando Sky MD Results 10/13/2024 Travel 10/13/2024 11:10 AM CLINICAL SUPERVISOR - 10/13/2024 11:55 AM CLINICAL SUPERVISOR Surgery [facility] [address] [place] [phone] Brando Sky MD Magnetic Resonance Imaging fusion transperineal prostate biopsy 10/13/2024 11:37 AM CLINICAL SUPERVISOR Anesthesia Event [facility] [address] [place] [phone] Naman Jacob MD Rinderer, Mallory, TECHNOLOGY COORDINATOR-HISTOLOGY MANAGER 10/13/2024 9:34 AM CLINICAL SUPERVISOR - 10/13/2024 12:47 PM CLINICAL SUPERVISOR Hospital Encounter [facility] [address] [place] [phone] Brando Sky MD Surgery General Discharge Disposition: Home or Self Care 09/17/2024 Orders Only [facility] - [facility]rology [address] [place] [phone] Abiodun Jean PA Elevated PSA 09/15/2024 Orders Only [facility] [address] [place] [phone] Elizabeth Pool LPN 09/15/2024 Orders Only [facility] [address] [place] [phone] Elizabeth Pool LPN 09/15/2024 Orders Only [facility] [address] [place] [phone] Abiodun Jean PA 09/14/2024 Telephone [facility] [address] [place] [phone] Abiodun Jean PA Follow-up 09/13/2024 Telephone [facility] [address] [place] [phone] Abiodun Jean PA Follow-up from Last 3 Months Allergies No known active allergies Medications * [...] better erection) 10 tablet 3 11/23/2024 Active Social History Tobacco Use Types Packs/Day Years [...] Comments Blood Pressure 144/83 11/23/2024 3:18 PM CLINICAL SUPERVISOR Pulse 59 11/23/2024 3:18 PM CLINICAL SUPERVISOR Temperature 36.9 ??C (98.4 ??F) 11/23/2024 3:18 PM CS T Respiratory Rate 18 10/13/2024 12:31 PM CLINICAL SUPERVISOR Oxygen Saturation 95% 11/23/2024 3:18 PM CLINICAL SUPERVISOR Inhaled Oxygen Concentration - - Weight 103 kg (227 lb) 11/23/2024 3:18 PM CLINICAL SUPERVISOR Height 180.3 cm (5' 11 ) 11/23/2024 3:18 PM CLINICAL SUPERVISOR Body Mass Index 31.66 11/23/2024 3:18 PM CLINICAL SUPERVISOR Plan of Treatment Upcoming Encounters Date Type Department Care Team (Late st Contact Info) Description 10/18/2025 3:00 PM CLINICAL SUPERVISOR Office Visit [facility] [address] [place] [address] Abiodun Jean PA [address] [place] [phone] Medical Devices Implanted Type Area Supervisor Grove Device Identifier Shelf Expiration Date Model / Serial / Lot Rama Crow Dr-T-01/16/2024 Implanted:01/16/20 (Quantity not on file) [employer] [id number] / [id number] / Description:MRI conditional to 1.5T or 3T-LT 06/23/24 Lead Solia S 60-01/16/2024 Implanted:01/16/20 (Quantity not on file) [employer]ik [id number] / / Lead Solia S 53-01/16/2024 Implanted:01/16/20 (Quantity not on file) [employer] [id number] / / Procedures Procedure Name Priority Date/Time Associated Diagnosis Comments PATHOLOGY TISSUE Routine 10/13/2024 11:4 2 AM CLINICAL SUPERVISOR Elevated PSA WA MR GUIDANCE NEEDLE PLACEMENT 10/13/2024 11:31 AM CLINICAL SUPERVISOR Elevated PSA Case Notes PAT ? [facility] (Mac) LABS NONE REQ MRI 08/05/2024 @[facility] Special Needs POSITIONING CHECK PREFERENCE CARD, MAC, Fortec# [id number] TP/UroNav System WA 3D RENDER W/INTRP POSTPROCES 10/13/2024 11:31 AM CLINICAL SUPERVISOR Elevated PSA Case Notes PAT ? [facility] (Mac) LABS NONE REQ MRI 08/05/2024 @[facility] Special Needs POSITIONING CHECK PREFERENCE CARD, MAC, Fortec# [id number] TP/UroNav System WA US GUIDED NEEDLE PLACEMENT 10/13/2024 11:31 AM CLINICAL SUPERVISOR Elevated PSA Case Notes PAT ? COREY (Mac) LABS NONE REQ MRI 08/05/2024 @[facility] Special Needs POSITIONING CHECK PREFERENCE CARD, MAC, Fortec# [id number] TP/UroNav System WA PROSTATE SATURATION SAMPLING 10/13/2024 11:31 AM CLINICAL SUPERVISOR Elevated PSA Case Notes PAT ? COREY (Mac) LABS NONE REQ MRI 08/05/2024 @[facility] Special Needs POSITIONING CHECK PREFERENCE CARD, MAC, Fortec# [id number] TP/UroNav System WA BIOPSY OF PROSTATE,NEEDLE/PU NCH 10/13/2024 11:31 AM CLINICAL SUPERVISOR Elevated PSA Case Notes PAT ? COREY (Mac) LABS NONE REQ MRI 08/05/2024 @[facility] Special Needs POSITIONING CHECK PREFERENCE CARD, MAC, Fortec# [id number] TP/UroNav System from Last 3 Months Results * PATHOLOGY TISSUE (10/13/2024 11:42 AM CLINICAL SUPERVISOR) Case Report Surgical Pathology Report ? Case: [id number] ? Authorizing Provider: ??Brando Sky MD ?Collected: ? 10/13/2024 11:42 AM ? Ordering Location: ? [facility] ? Received: ?10/14/2024 07:33 AM ? Pathologist: ? Callie Lewis, ? Specimens: ?? A) - Prostate Biopsy, [...] of Interest #1 ? 10/15/2024 8:44 AM CLINICAL SUPERVISOR U PATHOLOGY LAB Final Diagnosis Prostate, right anterior [...] - Benign prostatic tissue 10/15/2024 8:44 AM [facility] PATHOLOGY LAB Microscopic Description and Comment Microscopic examination substantiates the diagnosis. 10/15/2024 8:44 AM [facility] PATH[facility] LAB Clinical History The patient is a 74 year oldmale with elevated PSA of 3.04 on Finesteride with PIRADS 4 lesion on MRI and 51cc prostate. 10/15/2024 8:44 AM [facility] PATH[facility] LAB Gross Description The requisition [...] toto in cassette M1./THOMAS 10/15/2024 8:44 AM [facility] LAB Pathologist Location at [facility] 10/15/2024 8:44 AM [facility] LAB Disclaimer The performance characteristics of all immunohistochemical and indirect immunofluorescence stains (if any) cited in this report were determined by the Histopathology Laboratory of [facility]. Some of these tests were developed by [...] the attending (teaching) pathologist. 10/15/2024 8:44 AM [facility] PATH[facility]Y LAB Embedded Images 10/15/2024 8:44 AM [facility] LAB Biopsy, Needle BIOPSY OF PROSTATE / Unknown 10/13/2024 11:42 AM CLINICAL SUPERVISOR 10/14/2024 7:33 AM CLINICAL SUPERVISOR Comment:Pre-op diagnosis: Elevated PSA Biopsy, Needle BIOPSY OF PROSTATE / Unknown 10/13/2024 11:42 AM CLINICAL SUPERVISOR 10/14/2024 7:33 AM CLINICAL SUPERVISOR Comment:Pre-op diagnosis: Elevated PSA Biopsy, Needle BIOPSY OF PROSTATE / Unknown 10/13/2024 11:42 AM CLINICAL SUPERVISOR 10/14/2024 7:33 AM CLINICAL SUPERVISOR Comment:Pre-op diagnosis: Elevated PSA Biopsy, NOS BIOPSY OF PROSTATE / Unknown 10/13/2024 11:42 AM CLINICAL SUPERVISOR 10/14/2024 7:33 AM CLINICAL SUPERVISOR Comment:Pre-op diagnosis: Elevated PSA Biopsy, Needle BIOPSY OF PROSTATE / Unknown 10/13/2024 11:42 AM CLINICAL SUPERVISOR 10/14/2024 7:33 AM CLINICAL SUPERVISOR Comment:Pre-op diagnosis: Elevated PSA Biopsy, Needle BIOPSY OF PROSTATE / Unknown 10/13/2024 11:42 AM CLINICAL SUPERVISOR 10/14/2024 7:33 AM CLINICAL SUPERVISOR Comment:Pre-op diagnosis: Elevated PSA Biopsy, Needle BIOPSY OF PROSTATE / Unknown 10/13/2024 11:42 AM CLINICAL SUPERVISOR 10/14/2024 7:33 AM CLINICAL SUPERVISOR Comment:Pre-op diagnosis: Elevated PSA Biopsy, Needle BIOPSY OF PROSTATE / Unknown 10/13/2024 11:42 AM CLINICAL SUPERVISOR 10/14/2024 7:33 AM CLINICAL SUPERVISOR Comment:Pre-op diagnosis: Elevated PSA Biopsy, Needle BIOPSY OF PROSTATE / Unknown 10/13/2024 11:42 AM CLINICAL SUPERVISOR 10/14/2024 7:33 AM CLINICAL SUPERVISOR Comment:Pre-op diagnosis: Elevated PSA Biopsy, Needle BIOPSY OF PROSTATE / Unknown 10/13/2024 11:42 AM CLINICAL SUPERVISOR 10/14/2024 7:33 AM CLINICAL SUPERVISOR Comment:Pre-op diagnosis: Elevated PSA Biopsy, Needle BIOPSY OF PROSTATE / Unknown 10/13/2024 11:42 AM CLINICAL SUPERVISOR 10/14/2024 7:33 AM CLINICAL SUPERVISOR Comment:Pre-op diagnosis: Elevated PSA Biopsy, Needle BIOPSY OF PROSTATE / Unknown 10/13/2024 11:42 AM CLINICAL SUPERVISOR 10/14/2024 7:33 AM CLINICAL SUPERVISOR Comment:Pre-op diagnosis: Elevated PSA Biopsy, Needle BIOPSY OF PROSTATE / Unknown 10/13/2024 11:42 AM CLINICAL SUPERVISOR 10/14/2024 7:33 AM CLINICAL SUPERVISOR Comment:Pre-op diagnosis: Elevated PSA Brando Sky MD LAB - PATHOLOGY/RADHA LING ORDERABLES [facility] PATHOLOGY LAB [address] [phone] from Last 3 Months Care Teams Veterinarian Laboratory Animal Care Relationship Specialty Start Date End Date Emiliano Garza DO [address] [place] [address] PCP - General Internal Medicine 06/16/24
--- OUTSIDE RECORDS SUMMARY | 2024-12-02 01:49 | XMS_ITS | Clinical Summary ---
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 Gender Identity Not on file Sexual Orientation Not on file Plan of Treatment Health Maintenance Due Date Last Done Comments Hepatitis C Virus (HCV) Screening 1950 TdaP Immunization 1950 Colonoscopy 1995 Colorectal Cancer Screening 1995 Cologuard 2000 Immunochemical Fecal Occult Blood 2000 Pneumococcal Immunization (5 0+ years) (1 of 1 - PCV) 2000 Zoster Immunization (2 of 3) 11/25/2012 09/30/2012 Influenza Immunization (#1) 07/11/202407/11, 07/06/2018 SARS-COV-2 Immunization ( season) 2024 01/15/2021, 12/18/2020 Respiratory Syncytial Virus (RSV) Immunization (Adult) (1 - 1-dose 75+ series) 2025 Hepatitis B Immunization Aged Out No longer eligible based on patient's age to complete this topic Meningococcal Immunization (ACWY) Aged Out No longer eligible b ased on patient's age to complete this topic Rotavirus Immunization Aged Out No lo nger eligible based on patient's age to complete this topic
--- OUTSIDE RECORDS SUMMARY | 2024-12-02 01:49 | XMS_ITS | Clinical Summary ---
Author Organization [facility] [address] Address [address] [place] [address] Care Team Providers Care Stock Mover Name Role Phone Su Garza DO Primary Care Provider [phone] Allergies No known active allergies Medications tadalafil (CIALIS) 20 mg tablet take 1 tablet by oral route every day 0 0 5 Active Additional Information Patient not taking.Reported on 11/11/2024 [id number] -lycopen-lutein (CENTRUM SILVER ULTRA MEN'S) 300-600-300 mcg tablet 0 0 5 Active atorvastatin (LIPITOR) 10 mg tablet take 1 tablet by oral route every day 0 0 5 Active finasteride (PROSCAR) 5 mg tablet take 1 tablet by oral route every day 0 0 5 Active doxazosin (CARDURA) 4 mg tablet take 1 tablet by oral route every day 0 0 7 Active acetaminophen ER (TYLENOL) 650 mg 8 hr tablet Take 1 tablet (650 mg total) by mouth as needed for pain Active calcium carbonate-vitam in D3 (CALTRATE 600 + D) 1500 mg (600 mg elemental) -400 units per tablet Take 1 tablet by mouth daily Active psyllium 0.52 gram capsule Take 2 capsules (1.04 g total) by mouth 2 (two) times a day Active apixaban (ELIQUIS) 5 mg tablet Take 1 tablet (5 mg total) by mouth 2 (two) times a day 180 tablet 2 4 Active losartan (COZAAR) 100 mg tablet Take 1 tablet (100 mg total) by mouth daily 30 tablet 4 Active metoprolol XL (TOPROL-XL) 50 mg extended release tablet Take 1 tablet (50 mg total) by mouth daily 30 tablet 4 Active dofetilide (TIKOSYN) 500 mcg capsuleIndicati ons:cardiac arrhythmia Take 1 capsule (500 mcg total) by mouth 2 (two) times a day 180 capsule 4 12/23/19 25 Active clindamycin (CLEOCIN) 150 mg capsule Take by mouth as needed Prior to dental procedure Active amLODIPine (NORVASC) 5 mg tabletIndicatio ns:hypertension Take 1 tablet (5 mg total) by mouth daily 30 tablet 3 5 Active Active Problems Problem Noted Date Diagnosed Date High risk medication use 11/11/2024 Atrial fibrillation (CMS/HCC) 09/10/2024 Assessment & Plan (09/13/2024 9:08 PM CODING COMPLIANCE MANAGER): History of persistent afib with a high AF burden >90% since initial diagnosis in 02/2024. Asymptomatic but patient prefers a rhythm management strategy to reduce the risk of cardiomyopathy. -Telemetry - EP consult appreciated- for QTC < 600 ok to continue with dofetilide 500 bid - qtc 09/13 550 , dc on dofetilide 500 bid -Cont eliquis and metoprolol -converted to sinus rhythm -follow up with EP as outpatient Obesity (BMI 30-39.9) 09/10/2024 Assessment & Plan (09/10/2024 5:43 PM CDT): Risk factor for decompensation -Defer management to outpatient BPH (benign prostatic hyperplasia) 09/10/2024 Assessment & Plan (09/10/2024 5:43 PM CDT): -cont finasteride and doxazosin -F/u with Urology outpatient (HFpEF) heart failure with p reserved ejection fraction (CMS/HCC) 09/10/2024 Assessment & Plan (09/13/2024 9:12 PM CODING COMPLIANCE MANAGER): Last TTE 01/03 with EF 50%, grade 2DD, moderate UT, moderate MVR, mild AVR, moderate pHTN (RSVP peak 58). Not in exacerbation -Recently instructed to hold home HCTZ for dofetilide loading. Monitor fluid status -Strict I&Os, daily weights, low Na diet, telemetry -due to uncontrolled BP increase losartan to 100 (previously was on HTZD which was held iso start of dofetilide) -dc with losartan 100 Paroxysmal atrial fibrillation ([facility]) 024 Visit for wound check 01/23/2024 Cardiac pacemaker in situ 01/20/2024 Overview (06/07/2024): Biotronik Amvia Dual Pacemaker. Dx; CHB, Afib/Aflutter. DOI 01/16/2024-Martin. Biotronik remote. Complete heart block ([facility]) 01/14/2024 Assessment & Plan (09/10/2024 5:41 PM CDT): S/p pacemaker 01/2024 -F/u with EP outpatient First degree AV block 01/12/2024 Bradycardia 01/12/2024 Second degree AV block, Mobitz type I 01/12/2024 Mixed hyperlipidemia 06/03/2022 Assessment & Plan (09/10/2024 5:40 PM CDT): Cont atorvastatin QOD Epistaxis 11/19/2018 Acute deep vein thrombosis of lower limb 016 Overview (02/13/2017): Acute deep vein thrombosis (DVT) of right lower extremity, unspecified vein Chronic anticoagulation 03/04/2016 Overview (02/13/2017): Chronic anticoagulation 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 -F/u outpatient for monitoring Benign hypertension 07/11/2015 Overview (02/13/2017): HTN (hypertension), benign Assessment & Plan (09/13/2024 9:12 PM CODING COMPLIANCE MANAGER): Cont losartan, metoprolol, and doxazosin Losartan increased to 100 mg daily for better BP control Resolved Problems Problem Noted Date Diagnosed Date Resolved Date Dyslipidemia 07/11/2015 06/03/2022 Overview (02/13/2017): Dyslipidemia Encounters Date Type Department Care Team Description 11/30/2024 9:00 AM CODING COMPLIANCE MANAGER Ancillary Procedure [facility] Cardiology [address] [place] [address] [place] [phone] Cardiac pacemaker in situ; Complete heart block (CMS/HCC) (HCC) 11/30/2024 Orders Only [facility] Cardiology [address] [place] [address] [place] [phone] Khai Zuluaga MD Persistent atrial fibrillation (HCC) (Primary Dx); Cardiac pacemaker in situ; Complete heart block (CMS/HCC) (HCC) 11/18/2024 Telephone [facility] Scheduling [address] [place] [address] Rylee Iverson 11/11/2024 11:15 AM CODING COMPLIANCE MANAGER Office Visit [facility] Cardiology [address] [facility] [address] [place] [phone] Khai Zuluaga MD Persistent atrial fibrillation (HCC) (Primary Dx); High risk medication use; Chronic anticoagulation; Complete heart block (CMS/HCC) (HCC); Cardiac pacemaker in situ; Aneurysm of ascending aorta without rupture (HCC); Benign hypertension; Mixed hyperlipidemia 11/11/2024 10:15 AM CODING COMPLIANCE MANAGER Ancillary Procedure [facility] Cardiology [address] [place] [address] Aneurysm of ascending aorta without rupture (HCC) 10/22/2024 10:05 AM CODING COMPLIANCE MANAGER Lab [facility] [address] [place] [address] Atrial fibrillation, unspecified type (HCC) 10/22/2024 9:15 AM CODING COMPLIANCE MANAGER Office Visit [facility] Cardiology [facility] Office Building [address] [place] [phone] Deborah Norwood NP Atrial fibrillation, unspecified type (HCC) (Primary Dx) 10/22/2024 8:45 AM CODING COMPLIANCE MANAGER Ancillary Procedure [address] [place] [phone] Adjustment and management of cardiac pacemaker (Primary Dx); Pacemaker; Second degree AV block, Mobitz type I 10/11/2024 Telephone [facility]iology [address] [place] [address] 8th [place] [address] [place] [phone] Asa Barrera MD 10/04/2024 SHOP/CHAP Subsequent Outreach [facility] OP CASE MANAGEMENT [address] [place] [address] Mayda Agosto RN 09/29/2024 SHOP/CHAP Subsequent Outreach [facility] OP CASE MANAGEMENT [address] [place] [phone] Mayda Agosto RN 09/28/2024 Telephone [facility] Cardiology [address] [facility] [address] [place] [address] Khai Zuluaga MD 09/28/2024 SHOP/CHAP Subsequent Outreach [facility] OP CASE MANAGEMENT [address] [place] [address] Mayda Agosto RN 09/21/2024 SHOP/CHAP Subsequent Outreach [facility] OP CASE MANAGEMENT [address] [place] [phone] Mayda Agosto RN 09/17/2024 8:30 AM CODING COMPLIANCE MANAGER Ancillary Procedure [facility] Cardiology [address] [facility] [address] [place] [phone] Cardiac pacemaker in situ; Atrial fibrillation, unspecified type (HCC); Complete heart block (CMS/HCC) (HCC) 09/17/2024 Telephone [facility]iology [address] [facility] 8th [place] [address] [place] [address] Asa Barrera MD 09/16/2024 2:00 PM CODING COMPLIANCE MANAGER Ancillary Procedure [facility] [address] [facility] [address] [place] [phone] Cardiac pacemaker in situ; Atrial fibrillation, unspecified type (HCC); Complete heart block (CMS/HCC) (HCC) 09/16/2024 Telephone [facility] [address] [facility] [address] [place] [address] Khai Zuluaga MD remote device check 09/16/2024 Orders Only [facility] Cardiology [address] [facility] [address] [place] [phone] Khai Zuluaga MD Cardiac pacemaker in situ (Primary Dx); Atrial fibrillation, unspecified type (HCC); Complete heart block (CMS/HCC) (HCC) 09/16/2024 SHOP/CHAP Subsequent Outreach [facility] OP CASE MANAGEMENT [address] [place] [phone] Mayda Agosto, SYDNIE 09/14/2024 SHOP/CHAP Initial Outreach [facility] OP CASE MANAGEMENT [address] [place] [phone] Mayda Agosto, SYDNIE 09/14/2024 SHOP/CHAP Initial Eligibility Review [facility] OP CASE MANAGEMENT [address] [place] [phone] Mayda Agosto RN 09/10/2024 4:22 PM CDT - 09/13/2024 3:35 PM CODING COMPLIANCE MANAGER Hospital Encounter [facility] [address] [facility] [place] [address] Martín Arteaga MD Petrovic Elbaz, Mirjana, MD Bakeer, Faris Adam, MD Discharge Disposition: Discharge to home or self care 09/10/2024 Telephone [facility] [address] [place] [address] 8[address] [place] [address] [place] [address] Asa Barrera MD 09/06/2024 Orders Only [address] 8th [place] [address] [place] [address] Asa Barrera MD Pacemaker (Primary Dx) 09/06/[address] [place] [address] [place] [address] Asa Barrera MD 09/06/[address] 8th [place] [address] [place] [address] Asa Barrera MD 09/02/2024 2:00 PM CDT Office Visit [address] 8th [place] [address] [place] [address] Asa Barrera MD Paroxysmal atrial fibrillation (CMS/HCC) (HCC) 09/02/2024 1:30 PM CDT Ancillary Procedure [facility] [address] [place] [address] 8th [place] [address] [place] [address] Fitting and adjustment of cardiac pacemaker (Primary Dx); Complete heart block (CMS/HCC) (HCC) from Last 3 Months Surgical History Surgery Date Site/Laterality Comments APPENDECTOMY REPLACEMENT TOTAL KNEE 01/09/2016 - 02/08/2016 left knee Aug 2022 JOINT REPLACEMENT Medical History Medical History Date Comments Hypertension Enlarged prostate Allergic rhinitis Hypertension Arthritis Family History Medical History Relation Name Comments Heart failure Father Arthritis Mother raymundo Relation Name Status Comments Father (Age 82) Mother raymundo Alive Social History Tobacco Use Types Packs/Day Years Used Date Smoking Tobacco: Former Cigarettes 1 10 Smokeless Tobacco: Never Tobacco Cessation:Counseling Given: Not Answered Comments:Last smoked in late 1969? s Alcohol Use Standard Drinks/Week Comments Yes 0 (1 standard drink = 0.6 oz pur e alcohol) occassionally [facility] Utilities Answer Date Recorded In the past 12 months has th e electric, gas, oil, or water company threatened to shut off services in your home? No 09/14/2024 Social Connection and Isolat ion Panel [NHANES] Answer Date Recorded In a typical week, how many times do you talk on the phone with family, friends, or neighbors? More than three times a week 09/14/2024 How often do you get togethe r with friends or relatives? More than three times a week 09/14/2024 How often do you attend chur ch or spiritism services? Never 09/14/2024 Do you belong to any clubs o r organizations such as congregational groups, unions, fraternal or athletic groups, or school groups? No 09/14/2024 How often do you attend meet ings of the clubs or organizations you belong to? Never 09/14/2024 Are you , , di vorced, , never , or living with a partner? 09/14/2024 Overall Financial Resource Strain (CARDIA) Answe r Date Recorded How hard is it for you to pa y for the very basics like food, housing, medical care, and heating? Not hard at all 09/14/2024 Hunger Vital Sign Answer Date Recorded Within the past 12 months, y ou worried that your food would run out before you got the money to buy more. Never true 09/14/20 24 Within the past 12 months, t he food you bought just didn't last and you didn't have money to get more. Never true 09/14/2024 PRAPARE - Transportation Answer Date Re corded In the past 12 months, has l ack of transportation kept you from medical appointments or from getting medications? No 03/2024 In the past 12 months, has l ack of transportation kept you from meetings, work, or from getting things needed for daily living? No 09/14/2024 Housing Stability Vital Sign Answer Art e Recorded In the last 12 months, was t here a time when you were not able to pay the mortgage or rent on time? No 09/14/2024 In the past 12 months, how m any times have you moved where you were living? 0 09/14/2024 At any time in the past 12 m [facility], were you homeless or living in a fci (including now)? No 09/14/2024 Personal Safety Answer Date Recorded Have you ever been in or are you currently in a harmful physical or emotional relationship or is someone making you feel afraid or unsafe? Denies 09/10/2024 Sex and Gender Information Value Date Recorded Sex Assigned at Not on file Legal Sex Male 9:22 PM CODING COMPLIANCE MANAGER Gender Identity Male 05/01/2021 5:56 AM CDT Sexual Orientation Straight 05/01/2021 5: 56 AM CDT Obstetrics History Last Filed Vital Signs Vital Sign Reading Time Taken Comments Blood Pressure 152/84 11/11/2024 10:24 AM CODING COMPLIANCE MANAGER Pulse 69 11/11/2024 10:24 AM CODING COMPLIANCE MANAGER Temperature 36.9 ??C (98.4 ??F) 09/13/2024 8:16 AM CS T Respiratory Rate 20 09/13/2024 8:16 AM CODING COMPLIANCE MANAGER Oxygen Saturation 97% 11/11/2024 10: 24 AM CODING COMPLIANCE MANAGER Inhaled Oxygen Concentration - - Weight 107.3 kg (236 lb 9.6 oz) 025 10:24 AM CODING COMPLIANCE MANAGER Height 180.3 cm (5' 11 ) 11/11/2024 10: 24 AM CODING COMPLIANCE MANAGER Body Mass Index 33 11/11/2024 10:24 AM CODING COMPLIANCE MANAGER Plan of Treatment Health Maintenance Due Date Last Done Comments Colon Cancer Screening-Colonoscopy 1950 Depression Screening 1950 Hepatitis C Screening 1950 DTaP/Tdap/Td Vaccine (1 - Tdap) 1961 Hepatitis B Screening 1968 Zoster Vaccine (2 of 3) 11/25/2012 09/30/2012 Abdominal Aortic Aneurysm (AAA) Screen 2015 Pneumococcal vaccine 65+ (1 of 1 - PCV) 2015 Well Visit 65+ 2015 Influenza Vaccine (#1) 2024 07/28/2019, 2017 Fall Risk Assessment 09/13/2025 09/13/2024 Procedures Procedure Name Priority Date/Time Associated Diagnosis Comments POCT LIPID PANEL Routine 11/11/2024 12:3 1 PM CODING COMPLIANCE MANAGER Mixed hyperlipidemia TRANSTHORACIC ECHO (TTE) COMPLETE W DOPPLER/CF WO CONTRAST Routine 11/11/2024 10:35 AM CODING COMPLIANCE MANAGER Aneurysm of ascending aorta without rupture (HCC) EGFR Routine 10/22/2024 10:07 AM CODING COMPLIANCE MANAGER Atrial fibrillation, unspecified type (HCC) BASIC METABOLIC PANEL Routine 10/22/2024 10:07 AM CODING COMPLIANCE MANAGER Atrial fibrillation, unspecified type (HCC) ECG 12-LEAD Routine 10/22/2024 9:07 AM CODING COMPLIANCE MANAGER Atrial fibrillation, unspecified type (HCC) DEVICE CHECK - IN OFFICE Routine 10/22/2024 8:37 AM CODING COMPLIANCE MANAGER Pacemaker DEVICE CHECK - REMOTE Routine 09/17/2024 8:36 AM CODING COMPLIANCE MANAGER Cardiac pacemaker in situ Atrial fibrillation, unspecified type (HCC) Complete heart block (CMS/HCC) (HCC) DEVICE CHECK - REMOTE Routine 09/16/2024 2:09 PM CODING COMPLIANCE MANAGER Cardiac pacemaker in situ Atrial fibrillation, unspecified type (HCC) Complete heart block (CMS/HCC) (HCC) ECG 12-LEAD Routine 09/13/2024 10:41 AM CODING COMPLIANCE MANAGER EGFR Routine 09/13/2024 3:51 AM CODING COMPLIANCE MANAGER BASIC METABOLIC PANEL Routine 09/13/2024 3:51 AM CODING COMPLIANCE MANAGER EGFR STAT 09/12/2024 1:13 PM CODING COMPLIANCE MANAGER DIFFERENTIAL AUTO STAT 09/12/2024 1:1 3 PM CODING COMPLIANCE MANAGER CBC WITH AUTO DIFFERENTIAL STAT 09/12/2024 1:13 PM CODING COMPLIANCE MANAGER BASIC METABOLIC PANEL STAT 09/12/2024 1:13 PM CODING COMPLIANCE MANAGER ECG 12-LEAD Routine 09/12/2024 11:06 AM CODING COMPLIANCE MANAGER ECG 12-LEAD Routine 09/12/2024 11:06 AM CODING COMPLIANCE MANAGER ECG 12-LEAD Routine 09/11/2024 10:37 PM CDT ECG 12-LEAD Routine 09/11/2024 11:18 AM CDT EGFR STAT 09/10/2024 6:12 PM CDT CBC WITHOUT DIFFERENTIAL STAT 09/10/2024 6:12 PM CDT MAGNESIUM STAT 09/10/2024 6:12 PM CDT BASIC METABOLIC PANEL STAT 09/10/2024 6:12 PM CDT ECG 12-LEAD Routine 09/10/2024 6:00 PM CDT ECG 12-LEAD Routine 09/02/2024 2:08 PM CDT Paroxysmal atrial fibrillation (CMS/HCC) (HCC) DEVICE CHECK - IN OFFICE Routine 09/02/2024 12:39 PM CDT Complete heart block (CMS/HCC) (HCC) from Last 3 Months Results * POCT lipid panel (11/11/2024 12:31 PM CODING COMPLIANCE MANAGER) Cholesterol, POC 149 mg/dL Comment:GLU = 98 HDL, POC 63 mg/dL Triglycerides, POC 87 mg/dL LDL Cholesterol POC 68 mg/dL Chol/HDL Ratio, POC 1.1 Non-HDL Cholesterol, POC 86 mg/dL Cholesterol Total, POC 149 mg/dL Capillary blood 11/11/2024 1 2:31 PM CODING COMPLIANCE MANAGER [facility] Stewart Zuluaga MD POINT OF CARE TEST [facility] Final Result * TRANSTHORACIC ECHO (TTE) COMPLETE W DOPPLER/CF WO CONTRAST (11/11/2024 10:35 AM CODING COMPLIANCE MANAGER) Anatomical Region Laterality Modality Ultrasound 11/11/2024 9:54 AM CODING COMPLIANCE MANAGER Narrative 11/11/2024 12:20 PM CODING COMPLIANCE MANAGER [facility] Cardiology [address] [facility] [address], [place] [address] [address], [place] [address] P:[phone] P:[phone] Echocardiographic Report Patient Name: GUY GATES A : 1950 Study Date: 11/11/2024 9:54:15 AM Gender: M Tech: SW Ref Provider: SELAM ORELLANA Height(Cm): 180 BSA: 2.28 Weight(Kg): 103.9 ?Heart Rate: 61 BP: 157 / 91 ? Quality: Good Order Provider: SELAM ORELLANA ?? PROCEDURES: Echocardiographic Report: Transthoracic echocardiogram with complete 2D, M-Mode, and color Doppler examination. ?? INDICATIONS: Aortic Insufficiency and I71.21 Aneurysm of the ascending aorta, without rupture. ?? MEASUREMENTS: 2D/MM ?Value ? Range ?Doppler ?Value ? Range EF Mod BP ?55 % ?[ 52 - 72 ] ?AV Mean PG ? 5 mmHg EF Teich MM ?55 % ?[ 52 - 72 ] ?AV Peak Geoff ?1.70 m/s ?[ 1.00 - 1.70 ] Estimated EF ? 50-55 % ?AV Peak PG ? 12 mmHg LVIDd 2D ? 6.44 cm ? [ 4.20 - 5.80 ] ?AV VTI ? 37.25 cm LVIDd MM ? 6.42 cm ? [ 4.20 - 5.80 ] ?LVOT Peak Geoff ?0.85 m/s ?[ 0.70 - 1.10 ] LVIDs 2D ? 4.58 cm ? [ 2.50 - 4.00 ] ?LVOT VTI ? 19.61 cm LVIDs MM ? 4.56 cm ? [ 2.50 - 4.00 ] ?MV E Peak Geoff ?0.48 m/s ?[ 0.60 - 1.30 ] LVPWd 2D ? 0.90 cm ? [ 0.60 - 1.00 ] ?MV A Peak Geoff ?0.75 m/s ?[ 1.00 - 1.20 ] LVPWd MM ? 1.11 cm ? [ 0.60 - 1.00 ] ?MV Decel Time ?226 msec ?[ 104 - 258 ] IVSd 2D ?1.22 cm ? [ 0.60 - 1.00 ] ?PV Peak Geoff ?0.76 m/s ?[ 0.40 - 0.80 ] IVSd MM ?1.47 cm ? [ 0.60 - 1.00 ] ?TR Peak Geoff ?2.84 m/s ?[ 1.00 - 2.80 ] LA Dimension MM ?5.15 cm ? [ 3.00 - 4.00 ] ?TR Peak PG ? 32 mmHg AoR Diam MM ?4.84 cm ? [ 3.10 - 3.70 ] ?E` ? 0.04 m/s LA Volume Index ?52 cc/m2 ?[ 16 - 34 ] ?E/E` ? 11 ACS MM ? 1.82 cm ? [ 1.50 - 2.60 ] 2D/MM ?Value ? Range ?Doppler ?Value ? Range - ?? FINDINGS: Interpretation Site: Exam was interpreted at [facility]. Left Ventricle: Normal left ventricular size. Mild concentric left ventricular hypertrophy. Normal global left ventricular systolic function. Paradoxical septal motion consistent with RV pacemaker. Impaired diastolic relaxation Grade I. Ejection fraction is measured at 55 %. Ejection Fraction is visually estimated to be 50-55 %. Right Ventricle: Normal right ventricular size. Normal right ventricular systolic function. Linear artifact in right ventricle suggestive of catheter(s), pacemaker lead(s), or ICD lead(s). Left Atrium: There is severe enlargement of left atrium. Right Atrium: There is moderate enlargement of right atrium. Linear artifact in right atrium suggestive of catheter(s), pacemaker lead(s), or ICD lead(s). Atrial Septum: Normal atrial septum. Mitral Valve: Moderate mitral valve regurgitation. Aortic Valve: No evidence of hemodynamically significant aortic stenosis by Doppler. Aortic cusps appear moderately sclerotic. Trileaflet aortic valve. Mild to moderate aortic valve regurgitation. Tricuspid Valve: Estimated peak RVSP is 35 mmHg. Mild tricuspid regurgitation. Pulmonic Valve: Pulmonic valve not well visualized. Moderate pulmonic regurgitation. Pericardium: Normal pericardium with no significant pericardial effusion. Aorta: Sinus of Valsalva 4.8 cm. Sinotubular Junction 4.4 cm. IVC: Normal size and normal respiratory collapse consistent with normal right atrial pressure (<5 mmHg). ?? CONCLUSIONS: Normal left ventricular size. Mild concentric left ventricular hypertrophy. Normal global left ventricular systolic function. Paradoxical septal motion consistent with RV pacemaker. Impaired diastolic relaxation Grade I. Ejection fraction is measured at 55 %. Ejection Fraction is visually estimated to be 50-55 %. Normal right ventricular size. Normal right ventricular systolic function. There is severe enlargement of left atrium. There is moderate enlargement of right atrium. Moderate mitral valve regurgitation. Mild to moderate aortic valve regurgitation. Estimated peak RVSP is 35 mmHg. Mild tricuspid regurgitation. Moderate pulmonic regurgitation. Sinus of Valsalva 4.8 cm. Sinotubular Junction 4.4 cm. Electronically Signed By: Khai Zuluaga MD 11/11/2024 12:20:38 PM CODING COMPLIANCE MANAGER 50-55 Procedure Note Khai Zuluaga MD - 11/11/2024 [facility] Cardiology [address] [facility] [address] [id number] [address] [facility] [address] [place] [address] [phone] P:[phone] Echocardiographic Report Patient Name: GUY GATES A : 1950 Study Date: 11/11/2024 9:54:15 AM Gender: M Tech: Ref Provider: SELAM ORELLANA Height(Cm): 180 BSA: 2.28 Weight(Kg): 103.9 Heart Rate: 61 BP: 157 / 91 Quality: Good Order Provider: SELAM ORELLANA PROCEDURES: Echocardiographic Report: Transthoracic echocardiogram with complete 2D, M-Mode, and color Dopplerexamination. INDICATIONS: Aortic Insufficiency and I71.21 Aneurysm of the ascending aorta, withoutrupture. MEASUREMENTS: 2D/MM Value Range Doppler ValueRange EF Mod BP 55 % [ 52 - 72 ] AV Mean PG 5mmHg EF Teich MM 55 % [ 52 - 72 ] AV Peak Geoff 1.70m/s [ 1.00 - 1.70 ] Estimated EF 50-55 % AV Peak PG 12mmHg LVIDd 2D 6.44 cm [ 4.20 - 5.80 ] AV VTI 37.25cm LVIDd MM 6.42 cm [ 4.20 - 5.80 ] LVOT Peak Geoff 0.85m/s [ 0.70 - 1.10 ] LVIDs 2D 4.58 cm [ 2.50 - 4.00 ] LVOT VTI 19.61cm LVIDs MM 4.56 cm [ 2.50 - 4.00 ] MV E Peak Geoff 0.48m/s [ 0.60 - 1.30 ] LVPWd 2D 0.90 cm [ 0.60 - 1.00 ] MV A Peak Geoff 0.75m/s [ 1.00 - 1.20 ] LVPWd MM 1.11 cm [ 0.60 - 1.00 ] MV Decel Time 226msec [ 104 - 258 ] IVSd 2D 1.22 cm [ 0.60 - 1.00 ] PV Peak Geoff 0.76m/s [ 0.40 - 0.80 ] IVSd MM 1.47 cm [ 0.60 - 1.00 ] TR Peak Geoff 2.84m/s [ 1.00 - 2.80 ] LA Dimension MM 5.15 cm [ 3.00 - 4.00 ] TR Peak PG 32mmHg AoR Diam MM 4.84 cm [ 3.10 - 3.70 ] E` 0.04m/s LA Volume Index 52 cc/m2 [ 16 - 34 ] E/E` 11 ACS MM 1.82 cm [ 1.50 - 2.60 ] 2D/MM Value Range Doppler ValueRange - FINDINGS: Interpretation Site: Exam was interpreted at [facility] [facility]. Left Ventricle: Normal left ventricular size. Mild concentric left ventricularhypertrophy. Normal global left ventricular systolic function. Paradoxical septal motion consistentwith RV pacemaker. Impaired diastolic relaxation Grade I. Ejection fraction ismeasured at 55 %. Ejection Fraction is visually estimated to be 50-55 %. Right Ventricle: Normal right ventricular size. Normal right ventricular systolic function.Linear artifact in right ventricle suggestive of catheter(s), pacemaker lead(s),or ICD lead(s). Left Atrium: There is severe enlargement of left atrium. Right Atrium: There is moderate enlargement of right atrium. Linear artifact in rightatrium suggestive of catheter(s), pacemaker lead(s), or ICD lead(s). Atrial Septum: Normal atrial septum. Mitral Valve: Moderate mitral valve regurgitation. Aortic Valve: No evidence of hemodynamically significant aortic stenosis by Doppler.Aortic cusps appear moderately sclerotic. Trileaflet aortic valve. Mild to moderateaortic valve regurgitation. Tricuspid Valve: Estimated peak RVSP is 35 mmHg. Mild tricuspid regurgitation. Pulmonic Valve: Pulmonic valve not well visualized. Moderate pulmonic regurgitation. Pericardium: Normal pericardium with no significant pericardial effusion. Aorta: Sinus of Valsalva 4.8 cm. Sinotubular Junction 4.4 cm. IVC: Normal size and normal respiratory collapse consistent with normal rightatrial pressure (<5 mmHg). CONCLUSIONS: Normal left ventricular size. Mild concentric left ventricularhypertrophy. Normal global left ventricular systolic function. Paradoxical septal motion consistentwith RV pacemaker. Impaired diastolic relaxation Grade I. Ejection fraction ismeasured at 55 %. Ejection Fraction is visually estimated to be 50-55 %. Normal right ventricular size. Normal right ventricular systolicfunction. There is severe enlargement of left atrium. There is moderate enlargement of right atrium. Moderate mitral valve regurgitation. Mild to moderate aortic valve regurgitation. Estimated peak RVSP is 35 mmHg. Mild tricuspid regurgitation. Moderate pulmonic regurgitation. Sinus of Valsalva 4.8 cm. Sinotubular Junction 4.4 cm. Electronically Signed By: Khai Zuluaga MD 11/11/2024 12:20:38 PM CODING COMPLIANCE MANAGER 50-55 us Selam Orellana NP CV ECHO PROCEDURES Final Result * eGFR (10/22/2024 10:07 AM CODING COMPLIANCE MANAGER) eGFR 80 >=60 mL/min/1. 73 m2 Comment: Interpretive Data Reference Interval Normal ?>/= 90 mL/min/1.73m2 Mildly decreased* ? 60 - 89 mL/min/1.73m2 Mildly to moderately decreased ?45 - 59 mL/min/1.73m2 Moderately to severely decreased ??30 - 44 mL/min/1.73m2 Severely decreased ?15 - 29 mL/min/1.73m2 Kidney Failure ?< 15 ??mL/min/1.73m2 *Relative to young adult level Estimated glomerular filtration rate is determined by the 2020 CKD-EPI equation recommended by the National Kidney Foundation (A Unifying Approach to GFR Estimation: Recommendations of the NKF-ASK Task Force on Reassessing the Inclusion of Race in Diagnosing Kidney Disease, JASN 2020). The CKD-EPI equation should not be used for patients with unstable renal function and has not been validated in children and those over 70. Current interpretive data was last reviewed 2021. Blood 10/22/2024 10:0 7 AM CODING COMPLIANCE MANAGER 10/22/2024 11:11 AM CODING COMPLIANCE MANAGER us Deborah Norwood NP LAB BLOOD ORDERABLES Fin al Result MARIA ESTHER [facility]JW[facility] [id number] [facility]. [place] [address] * Basic metabolic panel (10/22/2024 10:07 AM CODING COMPLIANCE MANAGER) Sodium 139 135 - 145 mmol/L Potassium, pl 4.9 3.3 - 4.9 mmol/L [facility] Chloride 102 97 - 110 mmol/L [facility] CO2 29 22 - 32 mmol/L [facility] Anion gap 8 2 - 15 mmol/L [facility] BUN 17 6 - 25 mg/dL [facility] Creatinine 0.99 0.80 - 1.30 mg/dL [facility] Glucose 93 70 - 199 mg/dL [facility] Comment: Interpretive Data Fasting glucose >/= 126 mg/dl is diagnostic for diabetes. ?? Fasting is defined as no caloric intake for at least 8 hours. Fasting glucose between 100 mg/dl to 125 mg/dl is diagnostic of prediabetes. In a patient with classic symptoms of hyperglycemia or hyperglycemic crisis, a random glucose >/= 200 mg/dl is diagnostic for diabetes. In the absence of unequivocal hyperglycemia, results should be confirmed by repeat testing. The classification and Diagnosis of Diabetes Diabetes Care 2021; 46: S19-S40. Current interpretive data was last revised 2022. Calcium 9.3 8.5 - 10.3 mg/dL [facility] Blood 10/22/2024 10:0 7 AM CODING COMPLIANCE MANAGER 10/22/2024 11:11 AM CODING COMPLIANCE MANAGER Deborah Norwood NP LAB BLOOD ORDERABLES Fin al Result MARIA ESTHER [address] [id number] [facility]. [place] [address] * ECG 12 lead (10/22/2024 9:07 AM CODING COMPLIANCE MANAGER) Deborah Norwood NP ECG ORDERABLES Edited R esult - Final * DEVICE CHECK - IN OFFICE (10/22/2024 8:37 AM CODING COMPLIANCE MANAGER) Anatomical Region Laterality Modality Other 10/22/2024 2:00 AM CODING COMPLIANCE MANAGER Narrative 11/09/2024 6:35 PM CODING COMPLIANCE MANAGER Interpretation Summary: Battery and Leads (BL) Normal parameters noted on battery and lead(s) --- Estimate 10.4 years to YULISA Procedure Note Armani Soto MD PhD - 11/09/2024 Interpretation Summary: Battery and Leads (BL) Normal parameters noted on battery and lead(s) --- Estimate 10.4 years toERI us Asa Barrera MD CV CARDIAC SERVICES PRO CEDURES Final Result * DEVICE CHECK - REMOTE (09/17/2024 8:36 AM CODING COMPLIANCE MANAGER) Anatomical Region Laterality Modality Other Narrative 09/17/2024 3:18 PM CODING COMPLIANCE MANAGER Biotronik Amvia Dual Pacemaker. Dx; CHB. DOI 01/16/2024-Fleissner. Biotronik remote. AFlutter noted on 01/29/24. Unscheduled QuickCheck DDD Pacemaker Remote. This report has been collected to assess patient's current rhythm. Transmission attached. Battery status: ??Ok, 95% remaining battery life to YULISA. Stable lead impedances, pacing and sensing thresholds. Presenting rhythm: -Vpaced. AP-3%, ROSE GROWER-96%. AF Hamilton 0%. ??AT/AF terminated on 09/15/07. Medications: Eliquis, Toprol XL, TiKosyn. See scanned report. Office pacemaker follow up: 04/20/2025. Biotronik remote f/u 11/30/2024. Office pacemaker f/u and ROV with Derik Norwood, ROSEMARIE @ [place] on 10/22/2024. Tess Mcpherson, SYDNIE us Khai Zuluaga MD CV CARDIAC SERVICES PRO CEDURES Final Result * DEVICE CHECK - REMOTE (09/16/2024 2:09 PM CODING COMPLIANCE MANAGER) Anatomical Region Laterality Modality Other Narrative 09/16/2024 2:37 PM CODING COMPLIANCE MANAGER Biotronik Amvia Dual Pacemaker. Dx; CHB. DOI 01/16/2024-Fleissner. Biotronik remote. AFlutter noted on 01/29/24. Unscheduled DDD Pacemaker Remote. ??This report is being processed for Dr. Zuluaga to assess the amount of AFib burden. Transmission attached. Battery status: ??Ok, 95% remaining battery life to YULISA. Stable lead impedances, pacing and sensing thresholds. Atrium monitoring rhythm: AT/AF-Vpaced. AP-2%, ROSE GROWER-96%. AF Hamilton 100% from 08/16/24 to 09/12/24. AT/AF started 09/13/24 and ongoing on 09/15/07. Mean ventricular rate during AT/AF 63 bpm. Max ventricular rate during AT/AF 104 bpm. Medications: Eliquis, Toprol XL. See scanned report. Office pacemaker follow up: 04/20/2025. Biotronik remote f/u 11/09/2024. Tess Mcpherson, RN [facility] Stewart Zuluaga MD CV CARDIAC SERVICES PRO CEDURES Final Result * ECG 12 lead (09/13/2024 10:41 AM CODING COMPLIANCE MANAGER) Ventricular Rate EKG/Min 84 BPM [facility] Atrial Rate 84 BPM [facility] UT-Interval (MSEC) 238 ms [facility] QRS-Interval (MSEC) 180 ms [facility] QT-Interval (MSEC) 466 ms [facility] QTc 550 ms [facility] P [place] 36 degrees [facility] R [place] 257 degrees [facility] T [place] 77 degrees [facility] Diagnosis Atrial-sensed ventricular-p aced rhythm with prolonged AV conduction Abnormal ECG When compared with ECG of 12-SEP-2024 11:06, (unconfirmed) Vent. rate has decreased BY ?? 4 BPM Confirmed by JOSÉ ANTONIO LUONG M.D ([id number]) on 09/14/2024 3:14:08 PM [facility] 09/13/2024 10:4 1 AM CODING COMPLIANCE MANAGER 09/14/2024 3:14 PM CODING COMPLIANCE MANAGER us Rudi Caceres MD ECG ORDERABLES Final Resul t [facility] * eGFR (09/13/2024 3:51 AM CODING COMPLIANCE MANAGER) eGFR 79 >=60 mL/min/1. 73 m2 Comment: Interpretive Data Reference Interval Normal ?>/= 90 mL/min/1.73m2 Mildly decreased* ? 60 - 89 mL/min/1.73m2 Mildly to moderately decreased ?45 - 59 mL/min/1.73m2 Moderately to severely decreased ??30 - 44 mL/min/1.73m2 Severely decreased ?15 - 29 mL/min/1.73m2 Kidney Failure ?< 15 ??mL/min/1.73m2 *Relative to young adult level Estimated glomerular filtration rate is determined by the 2020 CKD-EPI equation recommended by the National Kidney Foundation (A Unifying Approach to GFR Estimation: Recommendations of the NKF-ASK Task Force on Reassessing the Inclusion of Race in Diagnosing Kidney Disease, JASN 2020). The CKD-EPI equation should not be used for patients with unstable renal function and has not been validated in children and those over 70. Current interpretive data was last reviewed 2021. Blood 09/13/2024 3:51 AM CODING COMPLIANCE MANAGER 09/13/2024 4:33 AM CODING COMPLIANCE MANAGER us Isela Alicia MD LAB BLOOD ORDERABLES F inal Result [facility] Department [place] [address] * Basic metabolic panel (09/13/2024 3:51 AM CODING COMPLIANCE MANAGER) Sodium 143 135 - 145 mmol/L Potassium, pl 4.3 3.3 - 4.9 mmol/L [facility] Chloride 107 97 - 110 mmol/L [facility] CO2 28 22 - 32 mmol/L [facility] Anion gap 8 2 - 15 mmol/L [facility] BUN 14 6 - 25 mg/dL [facility] Creatinine 1.00 0.80 - 1.30 mg/dL [facility] Glucose 88 70 - 199 mg/dL [facility] Comment: Interpretive Data Fasting glucose >/= 126 mg/dl is diagnostic for diabetes. ?? Fasting is defined as no caloric intake for at least 8 hours. Fasting glucose between 100 mg/dl to 125 mg/dl is diagnostic of prediabetes. In a patient with classic symptoms of hyperglycemia or hyperglycemic crisis, a random glucose >/= 200 mg/dl is diagnostic for diabetes. In the absence of unequivocal hyperglycemia, results should be confirmed by repeat testing. The classification and Diagnosis of Diabetes Diabetes Care 202; 46: S19-S40. Current interpretive data was last revised 2022. Calcium 8.8 8.5 - 10.3 mg/dL [facility] Blood 09/13/2024 3:51 AM CODING COMPLIANCE MANAGER 09/13/2024 4:33 AM CODING COMPLIANCE MANAGER Isela Alicia MD LAB BLOOD ORDERABLES F inal Result [facility] Department [place] [address] * eGFR (09/12/2024 1:13 PM CODING COMPLIANCE MANAGER) eGFR 83 >=60 mL/min/1. 73 m2 Comment: Interpretive Data Reference Interval Normal ?>/= 90 mL/min/1.73m2 Mildly decreased* ? 60 - 89 mL/min/1.73m2 Mildly to moderately decreased ?45 - 59 mL/min/1.73m2 Moderately to severely decreased ??30 - 44 mL/min/1.73m2 Severely decreased ?15 - 29 mL/min/1.73m2 Kidney Failure ?< 15 ??mL/min/1.73m2 *Relative to young adult level Estimated glomerular filtration rate is determined by the 2020 CKD-EPI equation recommended by the National Kidney Foundation (A Unifying Approach to GFR Estimation: Recommendations of the NKF-ASK Task Force on Reassessing the Inclusion of Race in Diagnosing Kidney Disease, JASN 2020). The CKD-EPI equation should not be used for patients with unstable renal function and has not been validated in children and those over 70. Current interpretive data was last reviewed 2021. Blood 09/12/2024 1:13 PM CODING COMPLIANCE MANAGER 09/12/2024 2:01 PM CODING COMPLIANCE MANAGER us Isela Alicia MD LAB BLOOD ORDERABLES F inal Result [facility] Department [place] [address] * Differential, auto (09/12/2024 1:13 PM CODING COMPLIANCE MANAGER) Neutrophil abs 3.8 1.5 - 6.5 K/cumm Imm gran abs 0.0 0.0 - 0.1 K/cumm [facility] Lymphocyte abs 1.2 0.8 - 3.3 K/cumm [facility] Monocyte abs 0.4 0.2 - 0.8 K/cumm [facility] Eosinophil abs 0.1 0.0 - 0.5 K/cumm [facility] Basophil abs 0.0 0.0 - 0.1 K/cumm [facility] Neutrophil pct 68.2 % [facility] Comment: Interpretive Data Percent cell count reference ranges are not reported, since discordance with absolute values may lead to misinterpretation of CBC data. Current Interpretive Data was last revised on 2018. Imm gran pct 0.4 % [facility] Comment: Interpretive Data Percent cell count reference ranges are not reported, since discordance with absolute values may lead to misinterpretation of CBC data. Current Interpretive Data was last revised on 2018. Lymphocyte pct 21.4 % [facility] Comment: Interpretive Data Percent cell count reference ranges are not reported, since discordance with absolute values may lead to misinterpretation of CBC data. Current Interpretive Data was last revised on 2018. Monocyte pct 7.3 % [facility] Comment: Interpretive Data Percent cell count reference ranges are not reported, since discordance with absolute values may lead to misinterpretation of CBC data. Current Interpretive Data was last revised on 2018. Eosinophil pct 2.0 % [facility] Comment: Interpretive Data Percent cell count reference ranges are not reported, since discordance with absolute values may lead to misinterpretation of CBC data. Current Interpretive Data was last revised on 2018. Basophil pct 0.7 % [facility] Comment: Interpretive Data Percent cell count reference ranges are not reported, since discordance with absolute values may lead to misinterpretation of CBC data. Current Interpretive Data was last revised on 2018. Blood 09/12/2024 1:13 PM CODING COMPLIANCE MANAGER 09/12/2024 2:01 PM CODING COMPLIANCE MANAGER Isela Alicia MD LAB BLOOD ORDERABLES F inal Result [facility] Department [place] [address] * CBC with auto differential (09/12/2024 1:13 PM CODING COMPLIANCE MANAGER) WBC 5.6 3.8 - 9.9 K/cumm Hgb 14.4 13.0 - 17.5 g/dL [facility] Hct 44.3 38.9 - 50.3 % [facility] Plt 161 150 - 400 K/cumm [facility] MPV 11.6 9.1 - 12.3 fL [facility] RBC 5.06 4.30 - 5.80 M/cumm [facility] MCV 87.5 81.3 - 96.4 fL [facility] MCH 28.5 27.1 - 33.3 pg [facility] MCHC 32.5 32.3 - 35.7 g/dL [facility] RDW CV 14.7 11.1 - 14.9 % [facility] RDW SD 47.1 35.7 - 48.1 fL [facility] NRBC abs 0.00 0.00 - 0.01 K/cumm [facility] Blood 09/12/2024 1:13 PM CODING COMPLIANCE MANAGER 09/12/2024 2:01 PM CODING COMPLIANCE MANAGER Isela Alicia MD LAB BLOOD ORDERABLES F inal Result Performing Organization Address City/[facility]/ZIP Co de Phone Number [facility] Department [place] [address] * Basic metabolic panel (09/12/2024 1:13 PM CODING COMPLIANCE MANAGER) [facility] Sodium 142 135 - 145 mmol/L Potassium, pl 4.6 3.3 - 4.9 mmol/L [facility] Chloride 102 97 - 110 mmol/L [facility] CO2 30 22 - 32 mmol/L [facility] Anion gap 10 2 - 15 mmol/L [facility] BUN 12 6 - 25 mg/dL [facility] Creatinine 0.96 0.80 - 1.30 mg/dL [facility] Glucose 126 70 - 199 mg/dL [facility] Comment: Interpretive Data Fasting glucose >/= 126 mg/dl is diagnostic for diabetes. ?? Fasting is defined as no caloric intake for at least 8 hours. Fasting glucose between 100 mg/dl to 125 mg/dl is diagnostic of prediabetes. In a patient with classic symptoms of hyperglycemia or hyperglycemic crisis, a random glucose >/= 200 mg/dl is diagnostic for diabetes. In the absence of unequivocal hyperglycemia, results should be confirmed by repeat testing. The classification and Diagnosis of Diabetes Diabetes Care 2021; 46: S19-S40. Current interpretive data was last revised 2022. Calcium 9.0 8.5 - 10.3 mg/dL [facility] Blood 09/12/2024 1:13 PM CODING COMPLIANCE MANAGER 09/12/2024 2:01 PM CODING COMPLIANCE MANAGER Isela Alicia MD LAB BLOOD ORDERABLES F inal Result Performing Organization Address [facility]/ZIP Co de Phone Number [facility] Department [place] [address] * ECG 12 lead (09/12/2024 11:06 AM CODING COMPLIANCE MANAGER) Ventricular Rate EKG/Min 88 BPM [facility] Atrial Rate 88 BPM [facility] UT-Interval (MSEC) 190 ms [facility] QRS-Interval (MSEC) 190 ms [facility] QT-Interval (MSEC) 474 ms [facility] QTc 573 ms [facility] P [place] -41 degrees [facility] R [place] 270 degrees [facility] T [place] 81 degrees [facility] Diagnosis Atrial-sensed ventricular-pa chloe rhythm When compared with ECG of 11-SEP-2024 22:37, (unconfirmed) No significant change was found Confirmed by RALPH JONES M.D ([id number]) on 09/15/2024 11:29:36 AM [facility] 09/12/2024 11:0 6 AM CODING COMPLIANCE MANAGER 09/15/2024 11:29 AM CODING COMPLIANCE MANAGER Rudi Caceres MD ECG ORDERABLES Final Resul t [facility] * ECG 12 lead (09/12/2024 11:06 AM CODING COMPLIANCE MANAGER) Ventricular Rate EKG/Min 88 BPM [facility] Atrial Rate 88 BPM [facility] UT-Interval (MSEC) 190 ms [facility] QRS-Interval (MSEC) 190 ms [facility] QT-Interval (MSEC) 474 ms [facility] QTc 573 ms [facility] P [place] -41 degrees [facility] R [place] 270 degrees [facility] T [place] 81 degrees [facility] Diagnosis Atrial-sensed ventricular-pa chloe rhythm When compared with ECG of 11-SEP-2024 22:37, (unconfirmed) No significant change was found Confirmed by RALPH JONES M.D ([id number]) on 09/15/2024 11:29:50 AM [facility] 09/12/2024 11:0 6 AM CODING COMPLIANCE MANAGER 09/15/2024 11:29 AM CODING COMPLIANCE MANAGER us Rudi Caceres MD ECG ORDERABLES Final Resul t [facility] * ECG 12 lead (09/11/2024 10:37 PM CDT) Ventricular Rate EKG/Min 89 BPM [facility] Atrial Rate 90 BPM [facility] QRS-Interval (MSEC) 196 ms [facility] QT-Interval (MSEC) 490 ms [facility] QTc 596 ms [facility] R [place] -84 degrees [facility] T [place] 80 degrees [facility] Diagnosis Ventricular-p aced rhythm Abnormal ECG When compared with ECG of 11-SEP-2024 11:18, (unconfirmed) Vent. rate has increased BY ??29 BPM Confirmed by SU MATIAS M.D ([id number]) on 09/13/2024 3:04:45 PM [facility] 09/11/2024 10:3 7 PM CDT 09/13/2024 3:04 PM CODING COMPLIANCE MANAGER Rudi Caceres MD ECG ORDERABLES Final Resul t Performing Organization Address City/[facility]/ZIP Co de Phone Number [facility] * ECG 12 lead (09/11/2024 11:18 AM CDT) Ventricular Rate EKG/Min 60 BPM [facility] Atrial Rate 277 BPM [facility] QRS-Interval (MSEC) 192 ms [facility] QT-Interval (MSEC) 556 ms [facility] QTc 556 ms [facility] R [place] -88 degrees [facility] T [place] 71 degrees [facility] Diagnosis Ventricular -paced rhythm Abnormal ECG Confirmed by Lex Stockton MD ([id number]) on 09/15/2024 12:17:54 AM [facility] 09/11/2024 11:1 8 AM CDT 09/15/2024 12:17 AM CODING COMPLIANCE MANAGER Rudi Caceres MD ECG ORDERABLES Final Resul t [facility] * eGFR (09/10/2024 6:12 PM CDT) eGFR 71 >=60 mL/min/1. 73 m2 Comment: Interpretive Data Reference Interval Normal ?>/= 90 mL/min/1.73m2 Mildly decreased* ? 60 - 89 mL/min/1.73m2 Mildly to moderately decreased ?45 - 59 mL/min/1.73m2 Moderately to severely decreased ??30 - 44 mL/min/1.73m2 Severely decreased ?15 - 29 mL/min/1.73m2 Kidney Failure ?< 15 ??mL/min/1.73m2 *Relative to young adult level Estimated glomerular filtration rate is determined by the 2020 CKD-EPI equation recommended by the National Kidney Foundation (A Unifying Approach to GFR Estimation: Recommendations of the NKF-ASK Task Force on Reassessing the Inclusion of Race in Diagnosing Kidney Disease, JASN 2020). The CKD-EPI equation should not be used for patients with unstable renal function and has not been validated in children and those over 70. Current interpretive data was last reviewed 2021. Blood 09/10/2024 6:12 PM CDT 09/10/2024 7:04 PM CDT us Rudi Caceres MD LAB BLOOD ORDERABLES Final Result [facility] Department of Laboratories [place], [place] [id number] * CBC without differential (09/10/2024 6:12 PM CDT) Pathologist [facility] WBC 6.0 3.8 - 9.9 K/cumm Hgb 13.2 13.0 - 17.5 g/dL [facility] Hct 39.6 38.9 - 50.3 % [facility] Plt 170 150 - 400 K/cumm [facility] MPV 11.7 9.1 - 12.3 fL [facility] RBC 4.50 4.30 - 5.80 M/cumm [facility] MCV 88.0 81.3 - 96.4 fL [facility] MCH 29.3 27.1 - 33.3 pg [facility] MCHC 33.3 32.3 - 35.7 g/dL [facility] RDW CV 14.6 11.1 - 14.9 % [facility] RDW SD 47.4 35.7 - 48.1 fL [facility] NRBC abs 0.00 0.00 - 0.01 K/cumm [facility] Blood 09/10/2024 6:12 PM CDT 09/10/2024 7:04 PM CDT Rudi Caceres MD LAB BLOOD ORDERABLES Final Result Performing Organization Address City/[facility]/ZIP Co de Phone Number [facility] [place] [address] * Magnesium (09/10/2024 6:12 PM CDT) [facility] Magnesium 2.2 1.4 - 2.5 mg/dL Blood 09/10/2024 6:12 PM CDT 09/10/2024 7:04 PM CDT Rudi Caceres MD LAB BLOOD ORDERABLES Final Result [facility] [place] [address] * (ABNORMAL) Basic metabolic panel (09/10/2024 6:12 PM CDT) [facility] Sodium 142 135 - 145 mmol/L Potassium, pl 4.8 3.3 - 4.9 mmol/L [facility] Chloride 105 97 - 110 mmol/L [facility] CO2 26 22 - 32 mmol/L [facility] Anion gap 11 2 - 15 mmol/L [facility] BUN 19 6 - 25 mg/dL [facility] Creatinine 1.09 0.80 - 1.30 mg/dL [facility] Glucose 93 70 - 199 mg/dL [facility] Comment: Interpretive Data Fasting glucose >/= 126 mg/dl is diagnostic for diabetes. ?? Fasting is defined as no caloric intake for at least 8 hours. Fasting glucose between 100 mg/dl to 125 mg/dl is diagnostic of prediabetes. In a patient with classic symptoms of hyperglycemia or hyperglycemic crisis, a random glucose >/= 200 mg/dl is diagnostic for diabetes. In the absence of unequivocal hyperglycemia, results should be confirmed by repeat testing. The classification and Diagnosis of Diabetes Diabetes Care 2021; 46: S19-S40. Current interpretive data was last revised 2022. Calcium 8.3(L) 8.5 - 10.3 mg/dL [facility] Blood 09/10/2024 6:12 PM CDT 09/10/2024 7:04 PM CDT us Rudi Caceres MD LAB BLOOD ORDERABLES Final Result [facility] [place] [address] * ECG 12 lead (09/10/2024 6:00 PM CDT) Ventricular Rate EKG/Min 67 BPM [facility] Atrial Rate 241 BPM [facility] QRS-Interval (MSEC) 194 ms [facility] QT-Interval (MSEC) 516 ms [facility] QTc 545 ms [facility] R [place] 269 degrees [facility] [place] 69 degrees [facility] Diagnosis Ventricular-pa chloe rhythm with frequent Premature ventricular complexes Abnormal ECG When compared with ECG of 06-SEP-2011 15:13, Electronic ventricular pacemaker has replaced Sinus rhythm Confirmed by JOS ÉANTONIO LUONG M.D ([id number]) on 09/13/2024 4:32:53 PM [facility] 09/10/2024 6:00 PM CDT 09/13/2024 4:32 PM CODING COMPLIANCE MANAGER us Rudi Caceres MD ECG ORDERABLES Final Resul t [facility] * ECG 12 lead (09/02/2024 2:08 PM CDT) us Asa Barrera MD ECG ORDERABLES Final R esult * DEVICE CHECK - IN OFFICE (09/02/2024 12:39 PM CDT) Anatomical Region Laterality Modality Other 09/02/2024 2:00 AM CDT Narrative 09/13/2024 11:30 AM CODING COMPLIANCE MANAGER Interpretation Summary: Battery and Leads (BL) Normal parameters noted on battery and lead(s) Presenting Rhythm (UT) Atrial Sensing-Ventricular Sensing (-VS) Atrial Fibrillation or Flutter Arrhythmic events (AE) Atrial fibrillation and/or flutter with controlled ventricular rate Premature Ventricular Contraction(s) Anticoagulation ??(AC) Patient prescribed Apixaban (Eliquis) Patient on anticoagulant therapy Procedure Note Asa Barrera MD - 09/13/2024 Interpretation Summary: Battery and Leads (BL) Normal parameters noted on battery and lead(s) Presenting Rhythm (UT) Atrial Sensing-Ventricular Sensing (-VS) Atrial Fibrillation or Flutter Arrhythmic events (AE) Atrial fibrillation and/or flutter with controlled ventricular rate Premature Ventricular Contraction(s) Anticoagulation (AC) Patient prescribed Apixaban (Eliquis) Patient on anticoagulant therapy us Anh Putnam MD [facility] PROCEDURES Final Result from Last 3 Months Insurance [facility] MEDICARE MEDICARE COMMERCIAL GENERIC MEDICARE [facility] Advance Directives For more information, please contact: [phone] * Full Code (Latest Code Status on File) Date Activated Date Inactivated Comments 09/10/2024 5:28 PM 09/13/2024 7:37 PM Care Teams Stock Mover Relationship Specialty Start Date End Date Su Garza DO PCP - General Internal Medicine 12/31/22
--- OUTSIDE RECORDS SUMMARY | 2024-12-02 01:49 | XMS_ITS | Patient Health Summary ---
Author Organization [facility] Address [address] [place] [address] Care Team Providers Care Communication Manager Name Role Phone Emiliano Garza DO Primary Care Provider [phone] Note from [facility],non-owned Affiliates and Associated Physician Practices is amultiple site organization consisting of ambulatory clinics and hospital sitesin [place], [place], [place] and [place]. This disclosure is being madepursuant to the Care Everywhere program and may not contain all information available regarding this patient. Last updated 18.[facility] Allergies No known active allergies Medications * Be aware that medications may not be up to date on this document. Alwaysverify current medications with the patient. * apixaban (Eliquis) 5 MG tablet(Started 03/02/2024) Take 1 (one) tablet by mouth 2 times daily * Calcium Carb-Cholecalciferol (Calcium/Vitamin D) 600-400 MG-UNIT TABS Take 1 tablet by mouth once daily * clindamycin (Cleocin) 150 MG capsule Take 1 (one) capsule by mouth as needed (dental procedures) * doxazosin (Cardura) 4 MG tablet(Started 03/08/2024) * finasteride (Proscar) 5 MG tablet(Started 05/14/2024) * metoprolol succinate XL 24hr (Toprol XL) 50 MG tablet(Started 05/14/2024) Take 1 (one) tablet by mouth once daily * atorvastatin (Lipitor) 10 MG tablet(Started 01/01/2024) * acetaminophen CR (Tylenol Arthritis Pain) 650 MG tablet Take 1 (one) tablet by mouth as needed * naproxen sodium (Aleve) 220 MG tablet Take 1 (one) tablet by mouth as needed * psyllium (Metamucil) CAPS capsule Take 1.04 g by mouth 2 times daily * losartan (Cozaar) 100 MG tablet(Started 09/14/2024) Take 1 (one) tablet by mouth once daily * dofetilide (Tikosyn) 500 MCG capsule(Started 09/24/2024) Take 1 (one) capsule by mouth 2 times daily * tadalafil (Cialis) 20 MG tablet(Started 11/23/2024) Take 1 (one) tablet by mouth once as needed (before sex for a better erection) 3 refills by 11/23/2025 Social History Tobacco Use Types Packs/Day Years Used Date Smoking Tobacco: Former Cigarettes 1 5 1 - 1977 Smokeless Tobacco: Never Tobacco Cessation:Counseling [...] Comments Blood Pressure 144/83 11/23/2024 3:18 PM LICENSE ISSUER Pulse 59 11/23/2024 3:18 PM LICENSE ISSUER Temperature 36.9 ??C (98.4 ??F) 11/23/2024 3:18 PM CS T Respiratory Rate 18 10/13/2024 12:31 PM LICENSE ISSUER Oxygen Saturation 95% 11/23/2024 3:18 PM LICENSE ISSUER Inhaled Oxygen Concentration - - Weight 103 kg (227 lb) 11/23/2024 3:18 PM LICENSE ISSUER Height 180.3 cm (5' 11 ) 11/23/2024 3:18 PM LICENSE ISSUER Body Mass Index 31.66 11/23/2024 3:18 PM LICENSE ISSUER Medical Devices Implanted Type Area Field Sales Trainer Device Identifier Shelf Expiration Date Model / Serial / Lot Rama Crow Dr-T-01/16/2024 Implanted:01/16/20 (Quantity not on file) [employer] [id number] / [id number] / Description:MRI conditional to 1.5T or 3T-LT 06/23/24 Lead Solia S 60-01/16/2024 Implanted:01/16/20 (Quantity not on file) [employer] [id number] / / Lead Solia S 53-01/16/2024 Implanted:01/16/20 (Quantity not on file) [employer] [id number] / / Procedures * PATHOLOGY TISSUE(Performed 10/13/2024) Performed for Elevated PSA * CT MR GUIDANCE NEEDLE PLACEMENT(Performed 10/13/2024) Performed for Elevated PSA * CT 3D RENDER W/INTRP POSTPROCES(Performed 10/13/2024) Performed for Elevated PSA * CT US GUIDED NEEDLE PLACEMENT(Performed 10/13/2024) Performed for Elevated PSA * CT PROSTATE SATURATION SAMPLING(Performed 10/13/2024) Performed for Elevated PSA * CT BIOPSY OF PROSTATE,NEEDLE/PUNCH(Performed 10/13/2024) Performed for Elevated PSA * MRI PROSTATE WWO CONTRAST(Performed 08/05/2024) Performed for Elevated PSA * CREATININE - POCT INTERFACED(Performed 08/05/2024) * CT MSR PVR U&/BLADD CAPCTY US NON(Performed 06/16/2024) Performed for Elevated PSA Results * PATHOLOGY TISSUE (10/13/2024 11:42 AM LICENSE ISSUER) Case Report Surgical Pathology Report ? Case: [id number] ? Authorizing Provider: ??Brando Sky MD ?Collected: [...] of Interest #1 ? 10/15/2024 8:44 AM LICENSE ISSUER U PATHOLOGY LAB Final Diagnosis Prostate, right [...] - Benign prostatic tissue 10/15/2024 8:44 AM [facility] Microscopic Description and Comment Microscopic examination substantiates the diagnosis. 10/15/2024 8:44 AM [facility] Clinical History The patient is a 74 year oldmale with elevated PSA of 3.04 on Finesteride with PIRADS 4 lesion on MRI and 51cc prostate. 10/15/2024 8:44 AM [facility] Gross Description The requisition and [...] right posterior late+ , consists of 4 acmacho-white tissue fragments, 0.2-0.9 cm and 0.9 x [...] toto in cassette M1./THOMAS 10/15/2024 8:44 AM [facility] Pathologist Location at [facility] 10/15/2024 8:44 AM [facility] Disclaimer The performance characteristics of all immunohistochemical and indirect immunofluorescence stains (if any) cited in this report were determined by the Histopathology [facility] of [facility]. Some of these tests were developed by [...] the attending (teaching) pathologist. 10/15/2024 8:44 AM [facility] Embedded Images 10/15/2024 8:44 AM [facility] Biopsy, Needle BIOPSY OF PROSTATE / Unknown 10/13/2024 11:42 AM LICENSE ISSUER 10/14/2024 7:33 AM LICENSE ISSUER Comment:Pre-op diagnosis: Elevated PSA Biopsy, Needle BIOPSY OF PROSTATE / Unknown 10/13/2024 11:42 AM LICENSE ISSUER 10/14/2024 7:33 AM LICENSE ISSUER Comment:Pre-op diagnosis: Elevated PSA Biopsy, Needle BIOPSY OF PROSTATE / Unknown 10/13/2024 11:42 AM LICENSE ISSUER 10/14/2024 7:33 AM LICENSE ISSUER Comment:Pre-op diagnosis: Elevated PSA Biopsy, NOS BIOPSY OF PROSTATE / Unknown 10/13/2024 11:42 AM LICENSE ISSUER 10/14/2024 7:33 AM LICENSE ISSUER Comment:Pre-op diagnosis: Elevated PSA Biopsy, Needle BIOPSY OF PROSTATE / Unknown 10/13/2024 11:42 AM LICENSE ISSUER 10/14/2024 7:33 AM LICENSE ISSUER Comment:Pre-op diagnosis: Elevated PSA Biopsy, Needle BIOPSY OF PROSTATE / Unknown 10/13/2024 11:42 AM LICENSE ISSUER 10/14/2024 7:33 AM LICENSE ISSUER Comment:Pre-op diagnosis: Elevated PSA Biopsy, Needle BIOPSY OF PROSTATE / Unknown 10/13/2024 11:42 AM LICENSE ISSUER 10/14/2024 7:33 AM LICENSE ISSUER Comment:Pre-op diagnosis: Elevated PSA Biopsy, Needle BIOPSY OF PROSTATE / Unknown 10/13/2024 11:42 AM LICENSE ISSUER 10/14/2024 7:33 AM LICENSE ISSUER Comment:Pre-op diagnosis: Elevated PSA Biopsy, Needle BIOPSY OF PROSTATE / Unknown 10/13/2024 11:42 AM LICENSE ISSUER 10/14/2024 7:33 AM LICENSE ISSUER Comment:Pre-op diagnosis: Elevated PSA Biopsy, Needle BIOPSY OF PROSTATE / Unknown 10/13/2024 11:42 AM LICENSE ISSUER 10/14/2024 7:33 AM LICENSE ISSUER Comment:Pre-op diagnosis: Elevated PSA Biopsy, Needle BIOPSY OF PROSTATE / Unknown 10/13/2024 11:42 AM LICENSE ISSUER 10/14/2024 7:33 AM LICENSE ISSUER Comment:Pre-op diagnosis: Elevated PSA Biopsy, Needle BIOPSY OF PROSTATE / Unknown 10/13/2024 11:42 AM LICENSE ISSUER 10/14/2024 7:33 AM LICENSE ISSUER Comment:Pre-op diagnosis: Elevated PSA Biopsy, Needle BIOPSY OF PROSTATE / Unknown 10/13/2024 11:42 AM LICENSE ISSUER 10/14/2024 7:33 AM LICENSE ISSUER Comment:Pre-op diagnosis: Elevated PSA Brando Sky MD LAB - PATHOLOGY/CY TOLOGY ORDERABLES Performing Organization Address City/State/[facility] Co de Phone Number [facility] [address] [phone] * MRI Prostate Wwo Contrast (08/05/2024 3:53 PM CDT) Anatomical Region Laterality Modality Pelvis Magnetic Resonan ce 08/06/2024 9:25 AM CDT Impressions 08/06/2024 9:40 AM CDT Impression: 1.PI-RADS 4 observation along the right anterior aspect of the peripheral zone in the mid gland measuring 9 mm. 2.Multiple BPH nodules. > Interpreting Provider: Ramiro Knutson on 08/06/2024 9:40 AM Narrative 08/06/2024 9:40 AM CDT PROCEDURE: ??MRI PROSTATE WWO CONTRAST, DATE/TIME OF EXAM: ??08/05/2024 3:53 PM, LOCATION ??[facility] INDICATION: R97.20: Elevated PSA ADDITIONAL CLINICAL INFORMATION: Ordering Provider Reason For Exam: Technologist Note: Additional: ??PSA of 3.04 COMPARISON: None. TECHNIQUE: MRI of the pelvis was performed prior to and following the uneventful administration of 20 mL of Multihance intravenous gadolinium contrast according to a prostate protocol. Findings: Prostate gland measurements Max AP Dimension (T2 axial): 5.6 cm ?? Max TV Dimension (T2 axial): 4.0 cm Max CC Dimension (T2 midline sagittal): 4.6 cm Prostatic Volume [(AP x TV x CC) x 0.52': 51.1 mL PSA: 3.04 PSA density: 0.06 Trace free fluid in the pelvis. The muscles and subcutaneous soft tissues are normal. The marrow signal is normal. Colonic diverticulosis present. Fat-containing umbilical hernia present. Transition zone: Multiple circumscribed hypointense/heterogenous encapsulated nodules, compatible with benign prostatic hyperplasia. Peripheral zone: Subcentimeter area of low T2 signal with associated marked diffusion restriction with corresponding low ADC values noted in the anterior aspect of the peripheral zone along the right mid gland measuring 7 mm x 5 mm x 9 mm. (PI-RADS 4). There is associated early enhancement on the post contrast dynamic images. Seminal vesicles: Normal. Extracapsular extension: None. Bladder: The bladder has a normal trabecular pattern. Lymph nodes: No iliac chain or inguinal lymphadenopathy. Procedure Note Ramiro Knutson MD - 08/06/2024 PROCEDURE: MRI PROSTATE WWO CONTRAST, DATE/TIME OF EXAM: :53 PM, LOCATION [facility] INDICATION: R97.20: Elevated PSA ADDITIONAL CLINICAL INFORMATION: Ordering Provider Reason For Exam: Technologist Note: Additional: PSA of 3.04 COMPARISON: None. TECHNIQUE: MRI of the pelvis was performed prior to and following the uneventful administration of 20 mL of Multihance intravenous gadolinium contrast according to a prostate protocol. Findings: Prostate gland measurements Max AP Dimension (T2 axial): 5.6 cm Max TV Dimension (T2 axial): 4.0 cm Max CC Dimension (T2 midline sagittal): 4.6 cm Prostatic Volume [(AP x TV x CC) x 0.52': 51.1 mL PSA: 3.04 PSA density: 0.06 Trace free fluid in the pelvis. The muscles and subcutaneous softtissues are normal. The marrow signal is normal. Colonic diverticulosis present. Fat-containing umbilical hernia present. Transition zone: Multiple circumscribed hypointense/heterogenous encapsulated nodules, compatible with benign prostatic hyperplasia. Peripheral zone: Subcentimeter area of low T2 signal with associatedmarked diffusion restriction with corresponding low ADC values noted in the anterior aspect of the peripheral zone along the right mid glandmeasuring 7 mm x 5 mm x 9 mm. (PI-RADS 4). There is associated early enhancementon the post contrast dynamic images. Seminal vesicles: Normal. Extracapsular extension: None. Bladder: The bladder has a normal trabecular pattern. Lymph nodes: No iliac chain or inguinal lymphadenopathy. Impression: 1.PI-RADS 4 observation along the right anterior aspect of theperipheral zone in the mid gland measuring 9 mm. 2.Multiple BPH nodules. > Interpreting Provider: Ramiro Knutson on 08/06/2024 9:40 AM Abiodun Alexis MR ORDERABLES * CREATININE - POCT INTERFACED (08/05/2024 2:40 PM CDT) Creatinine POCT 0.45 0.30 - 1.30 mg/dL 08/05/2024 2:44 PM CDT [facility] eGFR >90 >=90 mL/min/1.7 3 m2 08/05/2024 2:44 PM CDT [facility] Blood BLOOD SPECIMEN / Unknown 08/05/2024 2:40 PM CDT 08/05/2024 2:44 PM CDT Abiodun Alexis LAB - POINT OF CARE ORDERABLES [facility] [address] [place] [id number], [facility] [phone] * CT MSR PVR U&/BLADD CAPCTY US NON (06/16/2024 2:46 PM CDT) Narrative Niki Desai - 06/16/2024 2:46 PM CDT Niki Desai ? 06/16/2024 ??3:40 PM PVR 19 ML Abiodun Alexis PROCEDURE/MINOR SURG ICAL ORDERABLES Care Teams Communication Manager Relationship Specialty Start Date End Date Emiliano Garza DO [address] [place] [address] PCP - General Internal Medicine 06/16/24
--- OUTSIDE RECORDS SUMMARY | 2024-12-02 01:50 | XMS_ITS | Referral Summary ---
Author Organization [facility] [address] [place] [address] 162 Address [address] [facility] 162 [place] [address] Care Team Providers Care Wood Machinist Name Role Phone Su Garza DO Primary Care Provider [phone]- [phone] Encounters Date Type Department Care Team Description 11/30/2024 Orders Only [facility] Cardiology [address] [place] [address] [place] [phone] Khai Zuluaga MD Persistent atrial fibrillation (HCC) (Primary Dx); Cardiac pacemaker in situ; Complete heart block (CMS/HCC) (HCC) 11/30/2024 9:00 AM TOLL BRIDGE OPERATOR Ancillary Procedure [facility] Cardiology [address] [place] [address] [place] [phone] Cardiac pacemaker in situ; Complete heart block (CMS/HCC) (HCC) 11/18/2024 Telephone [facility] Scheduling [facility] [place] [address] Rylee Iverson 11/11/2024 11:15 AM TOLL BRIDGE OPERATOR Office Visit [facility] [address] [facility] [address] [place] [address] Khai Zuluaga MD Persistent atrial fibrillation (HCC) (Primary Dx); High risk medication use; Chronic anticoagulation; Complete heart block (CMS/HCC) (HCC); Cardiac pacemaker in situ; Aneurysm of ascending aorta without rupture (HCC); Benign hypertension; Mixed hyperlipidemia 11/11/2024 10:15 AM TOLL BRIDGE OPERATOR Ancillary Procedure [facility] Cardiology [address] [facility] 162 [address] [place] [phone] Aneurysm of ascending aorta without rupture (HCC) 10/22/2024 10:05 AM TOLL BRIDGE OPERATOR Lab [facility] [address] [place] [address] Atrial fibrillation, unspecified type (HCC) 10/22/2024 9:15 AM TOLL BRIDGE OPERATOR Office Visit [facility] Cardiology [facility] Medical Office Building [address] [place] [phone] Deborah Norwood, ROSEMARIE Atrial fibrillation, unspecified type (HCC) (Primary Dx) 10/22/2024 8:45 AM TOLL BRIDGE OPERATOR Ancillary Procedure [facility] Cardiology [address] [place] [address] Office Building [address] [place] [phone] Adjustment and management of cardiac pacemaker (Primary Dx); Pacemaker; Second degree AV block, Mobitz type I 10/11/2024 Telephone [facility] Cardiology [address] [place] [address] 8th [place] [address] [place] [phone] Asa Barrera MD 10/04/2024 SHOP/CHAP Subsequent Outreach [facility] [address] [place] [phone] Mayda Agosto RN 09/29/2024 SHOP/CHAP Subsequent Outreach [facility] 1 [place] [phone] Mayda Agosto RN 09/28/2024 Telephone [facility] Cardiology [address] [place] [phone] Khai Zuluaga MD 09/28/2024 SHOP/CHAP Subsequent Outreach [facility] [address] [place] [phone] Mayda Agosto RN 09/21/2024 SHOP/CHAP Subsequent Outreach [facility] 1 [place] [phone] Mayda Agosto RN 09/17/2024 Telephone [facility] Cardiology [address] [facility] 8th [place] [address] [place] [phone] Asa Barrera MD 09/17/2024 8:30 AM TOLL BRIDGE OPERATOR Ancillary Procedure [facility] Cardiology [address] [facility] [address] [place] [phone] Cardiac pacemaker in situ; Atrial fibrillation, unspecified type (HCC); Complete heart block (CMS/HCC) (HCC) 09/16/2024 Telephone [facility] Cardiology [address] [facility] [address] [place] [address] Khai Zuluaga MD remote device check 09/16/2024 2:00 PM TOLL BRIDGE OPERATOR Ancillary Procedure [facility] Cardiology [address] [facility] [address] [place] [phone] Cardiac pacemaker in situ; Atrial fibrillation, unspecified type (HCC); Complete heart block (CMS/HCC) (HCC) 09/16/2024 Orders Only [facility] Cardiology [address] [facility] [address] [place] [phone] Khai Zuluaga MD Cardiac pacemaker in situ (Primary Dx); Atrial fibrillation, unspecified type (HCC); Complete heart block (CMS/HCC) (HCC) 09/16/2024 SHOP/CHAP Subsequent Outreach [facility] 1 [place] [address] Mayda Agosto RN 09/14/2024 SHOP/CHAP Initial Outreach [facility] 1 [place] [address] Mayda Agosto RN 09/14/2024 SHOP/CHAP Initial Eligibility Review [facility] 1 [place] [address] Mayda Agosto RN 09/10/2024 4:22 PM CDT - 09/13/2024 3:35 PM TOLL BRIDGE OPERATOR Hospital Encounter [facility] 1 [place] [address] Martín Arteaga MD Petrovic Elbaz, Mirjana, MD Bakeer, Faris Adam, MD Discharge Disposition: Discharge to home or self care 09/10/2024 Telephone [facility] Cardiology [address] [place] [address] [place] [address] Asa Barrera MD 09/06/2024 Orders Only [facility] Cardiology [address] [place] [address] [place] [address] Asa Barrera MD Pacemaker (Primary Dx) 09/06/[address] [phone] Asa Barrera MD 09/06/[address] [phone] Asa Barrera MD 09/02/2024 2:00 PM CDT Office Visit [address] [phone] Asa Barrera MD Paroxysmal atrial fibrillation (CMS/HCC) (HCC) 09/02/2024 1:30 PM CDT Ancillary Procedure [address] [phone] Fitting and adjustment of cardiac pacemaker (Primary Dx); Complete heart block (CMS/HCC) (HCC) from Last 3 Months Allergies No known active allergies Medications tadalafil (CIALIS) 20 mg tablet take 1 tablet by oral route every day 0 0 5 Active Additional Information Patient not taking.Reported on 11/11/2024 [id number] -lycopen-lutein (CENTRUM SILVER ULTRA MEN'S) 300-600-300 mcg [...] 09/10/2024 Assessment & Plan (09/13/2024 9:08 PM TOLL BRIDGE OPERATOR): History of persistent afib with a high [...] 09/10/2024 Assessment & Plan (09/13/2024 9:12 PM TOLL BRIDGE OPERATOR): Last TTE 01/03 with EF 50%, grade 2DD, moderate KY, moderate MVR, mild AVR, moderate pHTN (RSVP peak 58). Not in exacerbation -Recently instructed to hold home HCTZ for dofetilide loading. Monitor fluid status -Strict I&Os, daily weights, low Na diet, telemetry -due to uncontrolled BP increase losartan to 100 (previously was on HTZD which was held iso start of dofetilide) -dc with losartan 100 Paroxysmal atrial fibrillation (CMS/HCC) 024 Visit for wound check 01/23/2024 Cardiac pacemaker in situ 01/20/2024 Overview (06/07/2024): Biotronik Amvia Dual Pacemaker. Dx; CHB, Afib/Aflutter. DOI 01/16/2024-Martin. Biotronik remote. 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 s Alcohol Use Standard Drinks/Week Comments Yes 0 (1 standard drink = 0.6 oz pur e alcohol) occassionally [facility] Utilities Answer Date Recorded In the past 12 months has th e [employer], gas, oil, or water company threatened to [...] often do you attend chur ch or mormonism services? Never 09/14/2024 Do you belong to any clubs o r organizations such as episcopal groups, unions, fraternal or athletic groups, or [...] any time in the past 12 [facility], were you homeless or living in a retirement (including now)? No 09/14/2024 Personal Safety Answer Date Recorded Have you ever been in or are you currently in a harmful physical or emotional relationship or is someone making you feel afraid or unsafe? Denies 09/10/2024 Sex and Gender Information Value Date Recorded Sex Assigned at Not on file Legal Sex Male 9:22 PM TOLL BRIDGE OPERATOR Gender Identity Male 05/01/2021 5:56 AM CDT Sexual Orientation Straight 05/01/2021 5: 56 AM CDT Last Filed Vital Signs Vital Sign Reading Time Taken Comments Blood Pressure 152/84 11/11/2024 10:24 AM TOLL BRIDGE OPERATOR Pulse 69 11/11/2024 10:24 AM TOLL BRIDGE OPERATOR Temperature 36.9 ??C (98.4 ??F) 09/13/2024 8:16 AM CS T Respiratory Rate 20 09/13/2024 8:16 AM TOLL BRIDGE OPERATOR Oxygen Saturation 97% 11/11/2024 10: 24 AM TOLL BRIDGE OPERATOR Inhaled Oxygen Concentration - - Weight 107.3 kg (236 lb 9.6 oz) 025 10:24 AM TOLL BRIDGE OPERATOR Height 180.3 cm (5' 11 ) 11/11/2024 10: 24 AM TOLL BRIDGE OPERATOR Body Mass Index 33 11/11/2024 10:24 AM TOLL BRIDGE OPERATOR Plan of Treatment Not on file Procedures Procedure Name Priority Date/Time Associated Diagnosis Comments POCT LIPID PANEL Routine 11/11/2024 12:3 1 PM TOLL BRIDGE OPERATOR Mixed hyperlipidemia TRANSTHORACIC ECHO (TTE) COMPLETE W DOPPLER/CF WO CONTRAST Routine 11/11/2024 10:35 AM TOLL BRIDGE OPERATOR Aneurysm of ascending aorta without rupture (HCC) EGFR Routine 10/22/2024 10:07 AM TOLL BRIDGE OPERATOR Atrial fibrillation, unspecified type (HCC) BASIC METABOLIC PANEL Routine 10/22/2024 10:07 AM TOLL BRIDGE OPERATOR Atrial fibrillation, unspecified type (HCC) ECG 12-LEAD Routine 10/22/2024 9:07 AM TOLL BRIDGE OPERATOR Atrial fibrillation, unspecified type (HCC) DEVICE CHECK - IN OFFICE Routine 10/22/2024 8:37 AM TOLL BRIDGE OPERATOR Pacemaker DEVICE CHECK - REMOTE Routine 09/17/2024 8:36 AM TOLL BRIDGE OPERATOR Cardiac pacemaker in situ Atrial fibrillation, unspecified type (HCC) Complete heart block (CMS/HCC) (HCC) DEVICE CHECK - REMOTE Routine 09/16/2024 2:09 PM TOLL BRIDGE OPERATOR Cardiac pacemaker in situ Atrial fibrillation, unspecified type (HCC) Complete heart block (CMS/HCC) (HCC) ECG 12-LEAD Routine 09/13/2024 10:41 AM TOLL BRIDGE OPERATOR EGFR Routine 09/13/2024 3:51 AM TOLL BRIDGE OPERATOR BASIC METABOLIC PANEL Routine 09/13/2024 3:51 AM TOLL BRIDGE OPERATOR EGFR STAT 09/12/2024 1:13 PM TOLL BRIDGE OPERATOR DIFFERENTIAL AUTO STAT 09/12/2024 1:1 3 PM TOLL BRIDGE OPERATOR CBC WITH AUTO DIFFERENTIAL STAT 09/12/2024 1:13 PM TOLL BRIDGE OPERATOR BASIC METABOLIC PANEL STAT 09/12/2024 1:13 PM TOLL BRIDGE OPERATOR ECG 12-LEAD Routine 09/12/2024 11:06 AM TOLL BRIDGE OPERATOR ECG 12-LEAD Routine 09/12/2024 11:06 AM TOLL BRIDGE OPERATOR ECG 12-LEAD Routine 09/11/2024 10:37 PM CDT [...] * POCT lipid panel (11/11/2024 12:31 PM TOLL BRIDGE OPERATOR) Cholesterol, POC 149 mg/dL Comment:GLU = 98 HDL, POC 63 mg/dL Triglycerides, POC 87 mg/dL LDL Cholesterol POC 68 mg/dL Chol/HDL Ratio, POC 1.1 Non-HDL Cholesterol, POC 86 mg/dL Cholesterol Total, POC 149 mg/dL Capillary blood 11/11/2024 1 2:31 PM TOLL BRIDGE OPERATOR [facility] Stewart Zuluaga MD POINT OF CARE TEST [place] NAJERA Final Result * TRANSTHORACIC ECHO (TTE) COMPLETE W DOPPLER/CF WO CONTRAST (11/11/2024 10:35 AM TOLL BRIDGE OPERATOR) Anatomical Region Laterality Modality Ultrasound 11/11/2024 9:54 AM TOLL BRIDGE OPERATOR Narrative 11/11/2024 12:20 PM TOLL BRIDGE OPERATOR [facility] Medical Group Cardiology [address] [facility] [address], [place] [address] [address] [facility] [address], [place] [address] P:[phone] P:[phone] Echocardiographic Report Patient Name: GUY GATES A [...] FINDINGS: Interpretation Site: Exam was interpreted at [facility]. Left Ventricle: Normal left ventricular size. [...] By: Khai Zuluaga MD 11/11/2024 12:20:38 PM TOLL BRIDGE OPERATOR 50-55 Procedure Note Khai Zuluaga MD - 11/11/2024 [facility] Cardiology [address] [facility] [address], [place] [address] [address] [facility] [address] [place], [place] [address] P:[phone] P:[phone] Echocardiographic Report Patient Name: GUY GATES A [...] FINDINGS: Interpretation Site: Exam was interpreted at [facility]. Left Ventricle: Normal left ventricular size. [...] By: Khai Zuluaga MD 11/11/2024 12:20:38 PM TOLL BRIDGE OPERATOR 50-55 us Selam Orellana NP CV ECHO PROCEDURES Final Result * eGFR (10/22/2024 10:07 AM TOLL BRIDGE OPERATOR) eGFR 80 >=60 mL/min/1. 73 m2 Comment: [...] reviewed 2021. Blood 10/22/2024 10:0 7 AM TOLL BRIDGE OPERATOR 10/22/2024 11:11 AM TOLL BRIDGE OPERATOR us Deborah Norwood NP LAB BLOOD ORDERABLES Fin al Result [facility] [address] [facility]. [place] [address] * Basic metabolic panel (10/22/2024 10:07 AM TOLL BRIDGE OPERATOR) Sodium 139 135 - 145 mmol/L Potassium, pl 4.9 3.3 - 4.9 mmol/L [facility] Chloride 102 97 - 110 mmol/L [facility] CO2 29 22 - 32 mmol/L [facility] Anion gap 8 2 - 15 mmol/L [facility] BUN 17 6 - 25 mg/dL [facility] Creatinine 0.99 0.80 - 1.30 mg/dL [facility] Glucose 93 70 - 199 mg/dL [facility] Comment: Interpretive Data Fasting glucose >/= 126 [...] classification and Diagnosis of Diabetes Diabetes Care 2022; 46: S19-S40. Current interpretive data was last revised 2022. Calcium 9.3 8.5 - 10.3 mg/dL [facility] Blood 10/22/2024 10:0 7 AM TOLL BRIDGE OPERATOR 10/22/2024 11:11 AM TOLL BRIDGE OPERATOR Deborah Norwood NP LAB BLOOD ORDERABLES Fin al Result [facility] [address] [facility]. [place] [employer] [place] [address] * ECG 12 lead (10/22/2024 9:07 AM TOLL BRIDGE OPERATOR) Deborah Norwood DYNAMITE PACKING MACHINE FEEDER ECG ORDERABLES Edited R esult - Final * DEVICE CHECK - IN OFFICE (10/22/2024 8:37 AM TOLL BRIDGE OPERATOR) Anatomical Region Laterality Modality Other 10/22/2024 2:00 AM TOLL BRIDGE OPERATOR Narrative 11/09/2024 6:35 PM TOLL BRIDGE OPERATOR Interpretation Summary: Battery and Leads (BL) Normal parameters noted on battery and lead(s) --- Estimate 10.4 years to YULISA Procedure Note Armani Soto MD PhD - 11/09/2024 Interpretation Summary: Battery and Leads (BL) Normal parameters noted on battery and lead(s) --- Estimate 10.4 years toERI Asa Barrera MD [facility] CARDIAC SERVICES PRO CEDURES Final Result * DEVICE CHECK - REMOTE (09/17/2024 8:36 AM TOLL BRIDGE OPERATOR) Anatomical Region Laterality Modality Other Narrative 09/17/2024 3:18 PM TOLL BRIDGE OPERATOR Biotronik Amvia Dual Pacemaker. Dx; CHB. DOI 01/16/2024-Martin. Biotronik remote. AFlutter noted on 01/29/24. Unscheduled QuickCheck DDD Pacemaker Remote. This report has been collected to assess patient's current rhythm. Transmission attached. Battery status: ??Ok, 95% remaining battery life to YULISA. Stable lead impedances, pacing and sensing thresholds. Presenting rhythm: -Vpaced. AP-3%, AIRPLANE ELECTRICIAN-96%. AF Gipsy 0%. ??AT/AF terminated on 09/15/07. Medications: Eliquis, Toprol XL, TiKosyn. See scanned report. Office pacemaker follow up: 04/20/2025. Biotronik remote f/u 11/30/2024. Office pacemaker f/u and ROV with Derik Norwood, DYNAMITE PACKING MACHINE FEEDER @ [place] on 10/22/2024. Tess Mcpherson, SYDNIE Khai Zuluaga MD CV CARDIAC SERVICES PRO CEDURES Final Result * DEVICE CHECK - REMOTE (09/16/2024 2:09 PM TOLL BRIDGE OPERATOR) Anatomical Region Laterality Modality Other Narrative 09/16/2024 2:37 PM TOLL BRIDGE OPERATOR Biotronik Amvia Dual Pacemaker. Dx; CHB. DOI 01/16/2024-Martin. Biotronik remote. AFlutter noted on 01/29/24. Unscheduled DDD Pacemaker Remote. ??This report is being processed for Dr. Zuluaga to assess the amount of AFib burden. Transmission attached. Battery status: ??Ok, 95% remaining battery life to YULISA. Stable lead impedances, pacing and sensing thresholds. [facility] monitoring rhythm: AT/AF-Vpaced. AP-2%, AIRPLANE ELECTRICIAN-96%. AF Gipsy 100% from 08/16/24 to 09/12/24. AT/AF started 09/13/24 and ongoing on 09/15/07. Mean ventricular rate during AT/AF 63 bpm. Max ventricular rate during AT/AF 104 bpm. Medications: Eliquis, Toprol XL. See scanned report. Office pacemaker follow up: 04/20/2025. Biotronik remote f/u 11/09/2024. Tess Mcpherson, SYDNIE Khai Zuluaga MD CV CARDIAC SERVICES PRO CEDURES Final Result * ECG 12 lead (09/13/2024 10:41 AM TOLL BRIDGE OPERATOR) Ventricular Rate EKG/Min 84 BPM [facility] Atrial Rate 84 BPM [facility] KY-Interval (MSEC) 238 ms [facility] QRS-Interval (MSEC) 180 ms [facility] QT-Interval (MSEC) 466 ms [facility] QTc 550 ms [facility] P Lowpoint 36 degrees [facility] R [place] 257 degrees [facility] T [place]point 77 degrees [facility] Diagnosis Atrial-sensed ventricular-p aced rhythm with prolonged AV conduction Abnormal ECG When compared with ECG of 12-SEP-2024 11:06, (unconfirmed) Vent. rate has decreased BY ?? 4 BPM Confirmed by JOSÉ ANTONIO LUONG M.D ([id number]) on 09/14/2024 3:14:08 PM [facility] 09/13/2024 10:4 1 AM TOLL BRIDGE OPERATOR 09/14/2024 3:14 PM TOLL BRIDGE OPERATOR us Rudi Caceres MD ECG ORDERABLES Final Resul t [facility] * eGFR (09/13/2024 3:51 AM TOLL BRIDGE OPERATOR) eGFR 79 >=60 mL/min/1. 73 m2 Comment: [...] last reviewed 2021. Blood 09/13/2024 3:51 AM TOLL BRIDGE OPERATOR 09/13/2024 4:33 AM TOLL BRIDGE OPERATOR Isela Alicia MD LAB BLOOD ORDERABLES F inal Result [facility] Department [place] [address] * Basic metabolic panel (09/13/2024 3:51 AM TOLL BRIDGE OPERATOR) Pathologist [facility] Sodium 143 135 - 145 mmol/L Potassium, pl 4.3 3.3 - 4.9 mmol/L [facility] Chloride 107 97 - 110 mmol/L [facility] CO2 28 22 - 32 mmol/L [facility] Anion gap 8 2 - 15 mmol/L [facility] BUN 14 6 - 25 mg/dL [facility] Creatinine 1.00 0.80 - 1.30 mg/dL [facility] Glucose 88 70 - 199 mg/dL [facility] Comment: Interpretive Data Fasting glucose >/= [...] 2022. Calcium 8.8 8.5 - 10.3 mg/dL [facility] Blood 09/13/2024 3:51 AM TOLL BRIDGE OPERATOR 09/13/2024 4:33 AM TOLL BRIDGE OPERATOR Isela Alicia MD LAB BLOOD ORDERABLES F inal Result Performing Organization Address City/[facility]/ZIP Co de Phone Number [facility]IA ESTHER TYSON [facility] Department [place] [address] * eGFR (09/12/2024 1:13 PM TOLL BRIDGE OPERATOR) eGFR 83 >=60 mL/min/1. 73 m2 Comment: [...] of Race in Diagnosing Kidney Disease, JASN 202). The CKD-EPI equation should not be used for patients with unstable renal function and has not been validated in children and those over 70. Current interpretive data was last reviewed 2021. Blood 09/12/2024 1:13 PM TOLL BRIDGE OPERATOR 09/12/2024 2:01 PM TOLL BRIDGE OPERATOR us Isela Alicia MD LAB BLOOD ORDERABLES F inal Result Performing Organization Address City/[facility]/ZIP Co de Phone Number [facility]IA ESTHER TYSON [facility] Department [place] [address] * Differential, auto (09/12/2024 1:13 PM TOLL BRIDGE OPERATOR) Neutrophil abs 3.8 1.5 - 6.5 K/cumm Imm gran abs 0.0 0.0 - 0.1 K/cumm [facility] Lymphocyte abs 1.2 0.8 - 3.3 K/cumm [facility] Monocyte abs 0.4 0.2 - 0.8 K/cumm [facility] Eosinophil abs 0.1 0.0 - 0.5 K/cumm [facility] Basophil abs 0.0 0.0 - 0.1 K/cumm [facility] Neutrophil pct 68.2 % [facility] Comment: Interpretive Data Percent cell count reference ranges are not reported, since discordance with absolute values may lead to misinterpretation of CBC data. Current Interpretive Data was last revised on 2018. Imm gran pct 0.4 % [facility] Comment: Interpretive Data Percent cell count reference ranges are not reported, since discordance with absolute values may lead to misinterpretation of CBC data. Current Interpretive Data was last revised on 2018. Lymphocyte pct 21.4 % [facility] Comment: Interpretive Data Percent cell count reference ranges are not reported, since discordance with absolute values may lead to misinterpretation of CBC data. Current Interpretive Data was last revised on 2018. Monocyte pct 7.3 % [facility] Comment: Interpretive Data Percent cell count reference ranges are not reported, since discordance with absolute values may lead to misinterpretation of CBC data. Current Interpretive Data was last revised on 2018. Eosinophil pct 2.0 % [facility] Comment: Interpretive Data Percent cell count reference ranges are not reported, since discordance with absolute values may lead to misinterpretation of CBC data. Current Interpretive Data was last revised on 2018. Basophil pct 0.7 % [facility] Comment: Interpretive Data Percent cell count reference ranges are not reported, since discordance with absolute values may lead to misinterpretation of CBC data. Current Interpretive Data was last revised on 2018. Blood 09/12/2024 1:13 PM TOLL BRIDGE OPERATOR 09/12/2024 2:01 PM TOLL BRIDGE OPERATOR Isela Alicia MD LAB BLOOD ORDERABLES F inal Result Performing Organization Address [facility] Co de Phone Number [facility] Department [place] [address] * CBC with auto differential (09/12/2024 1:13 PM TOLL BRIDGE OPERATOR) [facility] WBC 5.6 3.8 - 9.9 K/cumm Hgb 14.4 13.0 - 17.5 g/dL [facility] Hct 44.3 38.9 - 50.3 % [facility] Plt 161 150 - 400 K/cumm [facility] MPV 11.6 9.1 - 12.3 fL [facility] RBC 5.06 4.30 - 5.80 M/cumm [facility] MCV 87.5 81.3 - 96.4 fL [facility] MCH 28.5 27.1 - 33.3 pg [facility] MCHC 32.5 32.3 - 35.7 g/dL [facility] RDW CV 14.7 11.1 - 14.9 % [facility] RDW SD 47.1 35.7 - 48.1 fL [facility] NRBC abs 0.00 0.00 - 0.01 K/cumm [facility] Blood 09/12/2024 1:13 PM TOLL BRIDGE OPERATOR 09/12/2024 2:01 PM TOLL BRIDGE OPERATOR Isela Alicia MD LAB BLOOD ORDERABLES F inal Result Performing Organization Address City/[facility] Co de Phone Number [facility] Department [place] [address] * Basic metabolic panel (09/12/2024 1:13 PM TOLL BRIDGE OPERATOR) [facility] Sodium 142 135 - 145 mmol/L Potassium, pl 4.6 3.3 - 4.9 mmol/L [facility] Chloride 102 97 - 110 mmol/L [facility] [facility] CO2 30 22 - 32 mmol/L [facility] Anion gap 10 2 - 15 mmol/L [facility] BUN 12 6 - 25 mg/dL [facility] Creatinine 0.96 0.80 - 1.30 mg/dL [facility] Glucose 126 70 - 199 mg/dL [facility] Comment: Interpretive Data Fasting glucose >/= [...] 2022. Calcium 9.0 8.5 - 10.3 mg/dL [facility] Blood 09/12/2024 1:13 PM TOLL BRIDGE OPERATOR 09/12/2024 2:01 PM TOLL BRIDGE OPERATOR Isela Alicia MD LAB BLOOD ORDERABLES F inal Result [facility] [place] [address] * ECG 12 lead (09/12/2024 11:06 AM TOLL BRIDGE OPERATOR) Pathologist [facility] Ventricular Rate EKG/Min 88 BPM [facility] Atrial Rate 88 BPM [facility] [place]-Interval (MSEC) 190 ms [facility] QRS-Interval (MSEC) 190 ms [facility] QT-Interval (MSEC) 474 ms [facility] QTc 573 ms [facility] P Lowpoint -41 degrees [facility] R Lowpoint 270 degrees [facility] T Lowpoint 81 degrees [facility] Diagnosis Atrial-sensed ventricular-pa chloe rhythm When compared with ECG of 11-SEP-2024 22:37, (unconfirmed) No significant change was found Confirmed by RALPH JONES M.D ([id number]) on 09/15/2024 11:29:36 AM [facility] 09/12/2024 11:0 6 AM TOLL BRIDGE OPERATOR 09/15/2024 11:29 AM TOLL BRIDGE OPERATOR Rudi Caceres MD ECG ORDERABLES Final Resul t Performing Organization Address [facility] de Phone Number [facility] * ECG 12 lead (09/12/2024 11:06 AM TOLL BRIDGE OPERATOR) Ventricular Rate EKG/Min 88 BPM [facility] Atrial Rate 88 BPM [facility] [place]-Interval (MSEC) 190 ms [facility] QRS-Interval (MSEC) 190 ms [facility] QT-Interval (MSEC) 474 ms [facility] QTc 573 ms [facility] P Lowpoint -41 degrees [facility] R Lowpoint 270 degrees [facility] T Lowpoint 81 degrees [facility] Diagnosis Atrial-sensed ventricular-pa chloe rhythm When compared with ECG of 11-SEP-2024 22:37, (unconfirmed) No significant change was found Confirmed by RALPH JONES M.D ([id number]) on 09/15/2024 11:29:50 AM [facility] 09/12/2024 11:0 6 AM TOLL BRIDGE OPERATOR 09/15/2024 11:29 AM TOLL BRIDGE OPERATOR Rudi Caceres MD ECG ORDERABLES Final Resul t Performing Organization Address [facility] de Phone Number [facility] * ECG 12 lead (09/11/2024 10:37 PM CDT) Ventricular Rate EKG/Min 89 BPM [facility] Atrial Rate 90 BPM [facility] QRS-Interval (MSEC) 196 ms [facility] QT-Interval (MSEC) 490 ms [facility] QTc 596 ms [facility] R Lowpoint -84 degrees [facility] T Lowpoint 80 degrees [facility] Diagnosis Ventricular-p aced rhythm Abnormal ECG When compared with ECG of 11-SEP-2024 11:18, (unconfirmed) Vent. rate has increased BY ??29 BPM Confirmed by SU MATIAS M.D ([id number]) on 09/13/2024 3:04:45 PM [facility] 09/11/2024 10:3 7 PM CDT 09/13/2024 3:04 PM TOLL BRIDGE OPERATOR us Rudi Caceres MD ECG ORDERABLES Final Resul t Performing Organization Address [facility] de Phone Number [facility] * ECG 12 lead (09/11/2024 11:18 AM CDT) Ventricular Rate EKG/Min 60 BPM [facility] Atrial Rate 277 BPM [facility] QRS-Interval (MSEC) 192 ms [facility] QT-Interval (MSEC) 556 ms [facility] QTc 556 ms [facility] R Lowpoint -88 degrees [facility] T Lowpoint 71 degrees [facility] Diagnosis Ventricular -paced rhythm Abnormal ECG Confirmed by Mahin RICHMOND [facility] ([id number]) on 09/15/2024 12:17:54 AM [facility] 09/11/2024 11:1 8 AM CDT 09/15/2024 12:17 AM TOLL BRIDGE OPERATOR us Rudi Caceres MD ECG ORDERABLES Final Resul t Performing Organization Address [facility] de Phone Number [facility] * eGFR (09/10/2024 6:12 PM CDT) [...] Caceres MD LAB BLOOD ORDERABLES Final Result [facility] [place] [address] * CBC without differential (09/10/2024 6:12 PM CDT) WBC 6.0 3.8 - 9.9 K/cumm Hgb 13.2 13.0 - 17.5 g/dL [facility] Hct 39.6 38.9 - 50.3 % [facility] Plt 170 150 - 400 K/cumm [facility] MPV 11.7 9.1 - 12.3 fL [facility] RBC 4.50 4.30 - 5.80 M/cumm [facility] MCV 88.0 81.3 - 96.4 fL [facility] MCH 29.3 27.1 - 33.3 pg [facility] MCHC 33.3 32.3 - 35.7 g/dL [facility] RDW CV 14.6 11.1 - 14.9 % [facility] RDW SD 47.4 35.7 - 48.1 fL [facility] NRBC abs 0.00 0.00 - 0.01 K/cumm [facility] Blood 09/10/2024 6:12 PM CDT 09/10/2024 7:04 PM CDT Rudi Caceres MD LAB BLOOD ORDERABLES Final Result [facility] Department [place] [address] * Magnesium (09/10/2024 6:12 PM CDT) Pathologist [facility] Magnesium 2.2 1.4 - 2.5 mg/dL Blood 09/10/2024 6:12 PM CDT 09/10/2024 7:04 PM CDT Rudi Caceres MD LAB BLOOD ORDERABLES Final Result Performing Organization Address [facility] Co de Phone Number [facility] [place] [address] * (ABNORMAL) Basic metabolic panel (09/10/2024 6:12 PM CDT) [facility] Sodium 142 135 - 145 mmol/L Potassium, pl 4.8 3.3 - 4.9 mmol/L [facility] Chloride 105 97 - 110 mmol/L [facility] CO2 26 22 - 32 mmol/L [facility] Anion gap 11 2 - 15 mmol/L [facility] BUN 19 6 - 25 mg/dL [facility] Creatinine 1.09 0.80 - 1.30 mg/dL [facility] Glucose 93 70 - 199 mg/dL [facility] Comment: Interpretive Data Fasting glucose >/= [...] 2022. Calcium 8.3(L) 8.5 - 10.3 mg/dL [facility] Blood 09/10/2024 6:12 PM CDT 09/10/2024 7:04 PM CDT Rudi Caceres MD LAB BLOOD ORDERABLES Final Result [facility] Department [place] [address] * ECG 12 lead (09/10/2024 6:00 PM CDT) Ventricular Rate EKG/Min 67 BPM [facility] Atrial Rate 241 BPM [facility] QRS-Interval (MSEC) 194 ms [facility] QT-Interval (MSEC) 516 ms [facility] QTc 545 ms [facility] R Lowpoint 269 degrees [facility] T Lowpoint 69 degrees [facility] Diagnosis Ventricular-pa chloe rhythm with frequent Premature ventricular complexes Abnormal ECG When compared with ECG of 06-SEP-2011 15:13, Electronic ventricular pacemaker has replaced Sinus rhythm Confirmed by JOSÉ ANTONIO LUONG M.D ([id number]) on 09/13/2024 4:32:53 PM [facility] 09/10/2024 6:00 PM CDT 09/13/2024 4:32 PM TOLL BRIDGE OPERATOR Rudi Caceres MD ECG ORDERABLES Final Resul t Performing Organization Address [facility]/ZIP Co de Phone Number [facility] * ECG 12 lead (09/02/2024 2:08 PM CDT) Asa Barrera MD ECG ORDERABLES Final R esult * DEVICE CHECK - IN OFFICE (09/02/2024 12:39 PM CDT) Anatomical Region Laterality Modality Other 09/02/2024 2:00 AM CDT Narrative 09/13/2024 11:30 AM TOLL BRIDGE OPERATOR Interpretation Summary: Battery and Leads (BL) Normal parameters noted on battery and lead(s) Presenting Rhythm ([place]) Atrial Sensing-Ventricular Sensing (-VS) Atrial Fibrillation or Flutter Arrhythmic events (AE) Atrial fibrillation and/or flutter with controlled ventricular rate Premature Ventricular Contraction(s) Anticoagulation ??(AC) Patient prescribed Apixaban (Eliquis) Patient on anticoagulant therapy Procedure Note Asa Barrera MD - 09/13/2024 Interpretation Summary: Battery and Leads (BL) Normal parameters noted on battery and lead(s) Presenting Rhythm ([place]) Atrial Sensing-Ventricular Sensing (-VS) Atrial Fibrillation or Flutter Arrhythmic events (AE) Atrial fibrillation and/or flutter with controlled ventricular rate Premature Ventricular Contraction(s) Anticoagulation (AC) Patient prescribed Apixaban (Eliquis) Patient on anticoagulant therapy Anh Putnam MD [facility] PROCEDURES Final Result from Last 3 Months Insurance [facility] MEDICARE MEDICARE COMMERCIAL GENERIC [facility] Advance Directives For more information, please contact: [phone] * Full Code (Latest Code Status on File) Date Activated Date Inactivated Comments 09/10/2024 5:28 PM 09/13/2024 7:37 PM Care Teams Wood Machinist Relationship Specialty Start Date End Date Su Garza DO PCP - General Internal Medicine 12/31/22
== END 2024-11-25 08:55 | disposition home or self-care (01) ==
LOC: ANHGOSHLAB 08:56
PROVIDERS: PCP Internal Medicine
DX: N52.9 Male erectile dysfunction, unspecified (principal)
CPT/HCPCS: 36415; 84402; 84403

== ENCOUNTER 2025-02-24 11:30 | Outpatient (CLI) | payer MEDICARE, OTHER, SELFPAY ==
--- NOTE | ~2025-02-24 | XR_ITS ---
Left wrist Technique: PA, oblique, lateral, and ulnar deviation views were obtained. Clinical History: Pain Findings: No acute fracture or dislocation is seen. Osseous alignment is anatomic. Joint spaces are p reserved. Soft tissues are unremarkable. Impression: Unremarkable left wrist radiographs. Reviewed, dictated and finalized at location . Impression: Unremarkable left wrist radiographs.
== END 2025-02-24 11:31 | disposition home or self-care (01) ==
PROVIDERS: PCP Nurse Practitioner; Visit Provider Nurse Practitioner
DX: M25.532 Pain in left wrist (principal)
CPT/HCPCS: 73110

== ENCOUNTER 2025-04-12 08:50 | Outpatient (CLI) | payer MEDICARE, OTHER, SELFPAY ==
--- OUTSIDE RECORDS SUMMARY | 2025-04-12 08:59 | XMS_ITS | Clinical Summary ---
Author Organization [facility] [employer] Address [address] [place] [address] Care Team Providers Care Senior Research Associate Name Role Phone Emiliano Garza DO Primary Care Provider [phone] Source Comments [facility] [employer],non-owned Affiliates and Associated Physician Practices is amultiple site organization consisting of ambulatory clinics and hospital sitesin [place], [place], [place] and [place]. This disclosure is being madepursuant to the Care Everywhere program and may not contain all information available regarding this patient. Last updated 18.[facility] [employer] Allergies No known active allergies Medications * Be aware that medications may not be up to date on this document. Alwaysverify current medications with the patient. apixaban (Eliquis) 5 MG tablet Take 1 (one) tablet by mouth 2 times daily 03/02/2024 Active Calcium Carb-Cholecalci ferol (Calcium/Vitami n D) 600-400 MG-UNIT TABS Take 1 tablet by mouth once daily Active clindamycin (Cleocin) 150 MG capsule Take 1 (one) capsule by mouth as needed (dental procedures) Active doxazosin (Cardura) 4 MG tablet 03/08/2024 Active finasteride (Proscar) 5 MG tablet 05/14/2024 Active metoprolol succinate XL 24hr (Toprol XL) 50 MG tablet Take 1 (one) tablet by mouth once daily 05/14/2024 Active atorvastatin (Lipitor) 10 MG tablet 01/01/2024 [...] capsule by mouth 2 times daily 09/24/2024 Active tadalafil (Cialis) 20 MG tablet Take 1 (one) tablet by mouth once as needed (before sex for a better erection) 10 tablet 3 11/23/2024 Active Social History Tobacco Use Types Packs/Day Years Used Date Smoking Tobacco: Former Cigarettes 1 5 1 3 - 1977 Smokeless Tobacco: Never Tobacco Cessation:Counseling [...] Assigned at Male 04/12/2024 3:00 PM CDT Legal Sex Male 2:51 PM CDT Gender Identity Male 04/12/2024 3:00 PM CDT Sexual Orientation Straight 04/12/2024 3: 00 PM CDT Last Filed Vital Signs Vital Sign Reading Time Taken Comments Blood Pressure 144/83 11/23/2024 3:18 PM STUDY ASSISTANT Pulse 59 11/23/2024 3:18 PM STUDY ASSISTANT Temperature 36.9 C (98.4 F) 11/23/2024 3:18 PM STUDY ASSISTANT Respiratory Rate 18 10/13/2024 12:31 PM STUDY ASSISTANT Oxygen Saturation 95% 11/23/2024 3:18 PM STUDY ASSISTANT Inhaled Oxygen Concentration - - Weight 103 kg (227 lb) 11/23/2024 3:18 PM STUDY ASSISTANT Height 180.3 cm (5' 11) 11/23/2024 3:18 PM STUDY ASSISTANT Body Mass Index 31.66 11/23/2024 3:18 PM STUDY ASSISTANT Plan of Treatment Upcoming Encounters Date Type Department Care Team (Late st Contact Info) Description 10/18/2025 3:00 PM STUDY ASSISTANT Office Visit [facility] - Urology [address] [place] [id number] Abiodun Jean PA [address] [place] [id number] Health Maintenance Due Date Last Done Comments COLOGUARD (AGES 45-75) - COL ON CA SCREENING 1950 COLON MONITORING 1950 COLONOSCOPY - COLON CA SCREENING 1950 CT COLONOGRAPHY - COLON CA SCREENING 1950 Colorectal Cancer Screening 1950 FIT - COLON CA SCREENING 1950 FLEX SIG - COLON CA SCREENING 1950 MEDICARE AWV 12 MONTHS 1950 HEPATITIS C SCREENING 05/21/1968 DTAP/TDAP/TD VACCINES (1 - Tdap) 1969 PNEUMOCOCCAL VACCINE 50+ (1 of 1 - PCV) 2000 ZOSTER VACCINE (1 of 2) 2000 Respiratory Syncytial Virus (RSV) Vaccine Pt: or over 60 yrs (1 - Risk 60-74 years 1-dose series) 2010 AAA SCREENING 2015 COVID-19 VACCINE ( - 2023-2 5 season) 2024 DEPRESSION SCREENING 11/10/2024 INFLUENZA VACCINE (Season Ended) 2025 HEPATITIS B VACCINE Aged Out No longe r eligible based on patient's age to complete this topic HIB VACCINE Aged Out No longer eligi ble based on patient's age to complete this topic HPV VACCINE Aged Out No longer eligi ble based on patient's age to complete this topic MENINGOCOCCAL (Group B) VACC INE SHARED DECISION-MAKING Aged Out No longer eligibl e based on patient's age to complete this topic MENINGOCOCCAL GROUPS A/C/Y/W VACCINE Aged Out No longer eligible b ased on patient's age to complete this topic Medical Devices Implanted Type Area Field Health Officer Device Identifier Shelf Expiration Date Model / Serial / Lot Rama Crow Dr-T-01/16/2024 Implanted:01/16/20 (Quantity not on file) [employer] [id number] / [id number] / Description:MRI conditional to 1.5T or 3T-LT 06/23/24 Lead Solia S 60-01/16/2024 Implanted:01/16/20 (Quantity not on file) [employer] [id number] / / Lead Solia S 53-01/16/2024 Implanted:01/16/20 (Quantity not on file) [employer] [id number] / / Insurance MEDICARE [facility] [employer] Care Teams Senior Research Associate Relationship Specialty Start Date End Date Emiliano Garza DO [address] [place] [phone] PCP - General Internal Medicine 06/16/24
--- OUTSIDE RECORDS SUMMARY | 2025-04-12 08:59 | XMS_ITS | Clinical Summary ---
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
--- OUTSIDE RECORDS SUMMARY | 2025-04-12 08:59 | XMS_ITS | Referral Summary ---
Author Organization [facility] [address] [facility] [address] Address [address] [place] [address] Care Team Providers Care Deputy Court Name Role Phone Emiliano Garza DO Primary Care Provider [phone]- [phone] Encounters Date Type Department Care Team Description 03/29/2025 Telephone [facility] Cardiology [address] [facility] Advanced Medicine 8th [place] [address] [place] [phone] Asa Barrera MD 03/28/2025 Telephone [facility] Cardiology [address] [facility] Advanced Medicine 8th [place] [address] [place] [phone] Asa Barrera MD 03/28/2025 Telephone [facility] Cardiology [address] [place] [address] Khai Zuluaga MD 03/01/2025 Results Follow-Up [facility] Cardiology [address] [place] [address] Office Building [address] [place] [phone] Asa Barrera MD DEVICE CHECK - REMOTE 02/24/2025 Orders Only [address] Office Building [address] [place] [phone] Asa Barrera MD 01/21/2025 Telephone [facility] Cardiology [address] [place] [address] [place] [address] Khai Zuluaga MD 01/19/2025 3:05 PM CDT Lab [facility] [address] [facility] [place] [address] High risk medication use 01/19/2025 Results Follow-Up [facility] Cardiology [address] [facility] Medical Office Building [address] [place] [phone] Deborah Norwood NP ECG 12 lead, Basic metabolic panel, eGFR 01/19/2025 2:15 PM CDT Office Visit [facility] Cardiology [address] [facility] Office Building [address] [place] [address] Deborah Norwood NP High risk medication use (Primary Dx); Second degree AV block, Mobitz type I; Persistent atrial fibrillation (HCC) 01/19/2025 1:30 PM CDT Ancillary Procedure [facility] Cardiology [facility] Office Building [address] [place] [address] CHB (complete heart block) (HCC) (Primary Dx); Adjustment and management of cardiac pacemaker; Second degree AV block, Mobitz type I 01/11/2025 Telephone [facility] Pulmonary [address] [facility] Advanced Medicine 8th [place] [address] [place] [address] Moises Snider MD 01/10/2025 7:30 PM TECHNICAL SERVICE REPRESENTATIVE Procedure visit [facility] Neuro Sleep [address] [facility] 6th Floor [address] [place] [address] Severe obstructive sleep apnea (Primary Dx); Hypersomnia; Snoring; Persistent atrial fibrillation (HCC); Treatment-emergent central sleep apnea from Last 3 Months Allergies No known active allergies Medications tadalafil (CIALIS) 20 mg tablet take 1 tablet by oral route every day 0 0 07/11/20 15 Active Additional Information Patient taking differently:20 mgAs needed, Reported on 01/19/2025 [id number] T-vsskbri-tdde in (CENTRUM SILVER ULTRA MEN'S) 300-600-300 mcg tablet 0 0 07/11/20 15 Active atorvastatin (LIPITOR) 10 mg tablet take 1 tablet by oral route every day 0 0 07/11/20 15 Active finasteride (PROSCAR) 5 mg tablet take 1 tablet by oral route every day 0 0 07/11/20 15 Active doxazosin (CARDURA) 4 mg tablet take 1 tablet by oral route every day 0 0 11/27/19 17 Active acetaminophen ER (TYLENOL) 650 mg 8 hr tablet Take 1 tablet (650 mg total) by mouth as needed for pain Active calcium carbonate-lester min D3 (CALTRATE 600 + D) 1500 mg (600 mg elemental) -400 units per tablet Take 1 tablet by mouth daily Active psyllium 0.52 gram capsule Take 2 capsules (1.04 g total) by mouth 2 (two) times a day Active clindamycin (CLEOCIN) 150 mg capsule Take by mouth as needed Prior to dental procedure Active amLODIPine (NORVASC) 5 mg tabletIndicati ons:hypertensi on Take 1 tablet (5 mg total) by mouth daily 90 tablet 3 12/07/19 25 Active apixaban (ELIQUIS) 5 mg tablet Take 1 tablet (5 mg total) by mouth 2 (two) times a day 60 tablet 10 01/05/20 25 Active dofetilide (TIKOSYN) 500 mcg capsule Take 1 capsule (500 mcg total) by mouth 2 (two) times a day 180 capsule 1 03/30/20 25 Active metoprolol XL (TOPROL-XL) 50 mg extended release tablet TAKE 1 TABLET DAILY 90 tablet 3 04/05/20 25 Active metoprolol XL (TOPROL-XL) 50 mg extended release tablet Take 1 tablet (50 mg total) by mouth daily 30 tablet 09/13/20 24 025 Discontinued dofetilide (TIKOSYN) 500 mcg capsuleIndicat ions:cardiac arrhythmia Take 1 capsule (500 mcg total) by mouth 2 (two) times a day 180 capsule 12/30/19 25 025 Discontinued Active Problems Problem Noted Date Diagnosed Date Severe obstructive sleep apnea 01/11/2025 High risk medication use 11/11/2024 Atrial fibrillation 09/10/2024 Assessment & Plan (09/13/2024 9:08 PM TECHNICAL SERVICE REPRESENTATIVE): History of persistent afib with a high [...] with Urology outpatient (HFpEF) heart failure with preserved ejection fr action 09/10/2024 Assessment & Plan (09/13/2024 9:12 PM TECHNICAL SERVICE REPRESENTATIVE): Last TTE 01/03 with EF 50%, grade 2DD, moderate DC, moderate MVR, mild AVR, moderate pHTN (RSVP peak 58). Not in exacerbation -Recently instructed to hold home HCTZ for dofetilide loading. Monitor fluid status -Strict I&Os, daily weights, low Na diet, telemetry -due to uncontrolled BP increase losartan to 100 (previously was on HTZD which was held iso start of dofetilide) -dc with losartan 100 Paroxysmal atrial fibrillation 03/02/2024 Visit for wound check 01/23/2024 Cardiac pacemaker in situ 01/20/2024 Overview (06/07/2024): Biotronik Amvia Dual Pacemaker. Dx; CHB, Afib/Aflutter. DOI 01/16/2024-Martin. [employer]ronik remote. Complete heart block 01/14/2024 Assessment & Plan (09/10/2024 5:41 PM [...] (02/13/2017): Chronic anticoagulation Aneurysm of iliac artery 12/28/2015 Overview (02/13/2017): Iliac artery aneurysm, bilateral [...] benign Assessment & Plan (09/13/2024 9:12 PM TECHNICAL SERVICE REPRESENTATIVE): Cont losartan, metoprolol, and doxazosin Losartan increased to 100 mg daily for better BP control Resolved Problems Problem Noted Date Diagnosed Date Resolved Date Dyslipidemia 07/11/2015 06/03/2022 Overview (02/13/2017): Dyslipidemia Social History Tobacco Use Types Packs/Day Years Used Date Smoking Tobacco: Former Cigarettes 1 10 Smokeless Tobacco: Never Tobacco Cessation:Counseling Given: Not Answered Comments:Last smoked in late 1969 s Alcohol Use Standard Drinks/Week Comments Yes 0 (1 standard drink = 0.6 oz pur e alcohol) occassionally [facility] Utilities Answer Date Recorded In the past [...] often do you attend chur ch or worship services? Never 09/14/2024 Do you belong to any clubs o r organizations such as evangelical groups, unions, fraternal or athletic groups, or [...] any time in the past 12 m [facility], were you homeless or living in a nursing home (including now)? No 09/14/2024 Personal Safety Answer Date Recorded Have you ever been in or are you currently in a harmful physical or emotional relationship or is someone making you feel afraid or unsafe? Denies 09/10/2024 Sex and Gender Information Value Date Recorded Sex Assigned at Not on file Legal Sex Male 9:22 PM TECHNICAL SERVICE REPRESENTATIVE Gender Identity Male 05/01/2021 5:56 AM CDT Sexual Orientation Straight 05/01/2021 5: 56 AM CDT Last Filed Vital Signs Vital Sign Reading Time Taken Comments Blood Pressure 141/87 01/19/2025 1:52 PM CDT Pulse 57 01/19/2025 1:52 PM CDT Temperature 36.7 C (98 F) 01/10/2025 7:39 PM TECHNICAL SERVICE REPRESENTATIVE Respiratory Rate 20 09/13/2024 8:16 AM TECHNICAL SERVICE REPRESENTATIVE Oxygen Saturation 95% 01/19/2025 1:52 PM CDT Inhaled Oxygen Concentration - - Weight 105.2 kg (232 lb) 01/19/2025 1:52 PM CDT Height 180.3 cm (5' 11) 01/19/2025 1:52 PM CDT Body Mass Index 32.36 01/19/2025 1:52 PM CDT Plan of Treatment Not on file Procedures Procedure Name Priority Date/Time Associated Diagnosis Comments DEVICE CHECK - REMOTE Routine 02/24/2025 4:59 AM CDT EGFR Routine 01/19/2025 3:02 PM CDT High risk medication use BASIC METABOLIC PANEL Routine 01/19/2025 3:02 PM CDT High risk medication use ECG 12-LEAD Routine 01/19/2025 1:46 PM CDT High risk medication use DEVICE CHECK - IN OFFICE Routine 01/19/2025 1:14 PM CDT Adjustment and management of cardiac pacemaker Second degree AV block, Mobitz type I PSG (COMPLEX) Routine 01/10/2025 9:00 PM TECHNICAL SERVICE REPRESENTATIVE Hypersomnia Snoring Persistent atrial fibrillation (HCC) from Last 3 Months Results * DEVICE CHECK - REMOTE (02/24/2025 4:59 AM CDT) Anatomical Region Laterality Modality Other 02/24/2025 4:59 AM CDT Narrative 03/01/2025 4:24 PM CDT Interpretation Summary: Battery and Leads (BL) Normal parameters noted on battery and lead(s) --- 90% remaining longevity. Lead impedance, sensing, and threshold trends stable and appropriate. Presenting Rhythm (DC) Atrial Pacing-Ventricular Pacing (AP-UTILITY FORESTER) --- AP/UTILITY FORESTER 50 with PVC. Arrhythmic events (AE) No new arrhythmic events in monitoring period --- Since 01/22/25: No AHR or VHR episodes. Miscellaneous Observations (MISC) RV pacing > 40% noted --- UTILITY FORESTER 96%. Pt has h/o CHB/High UTILITY FORESTER percentage. Transmission Information (TI) Device Summary Report Follow Up (FU) Patient's primary treating physician will be apprised of findings Procedure Note Asa Barrera MD - 03/01/2025 Interpretation Summary: Battery and Leads (BL) Normal parameters noted on battery and lead(s) --- 90% remaininglongevity. Lead impedance, sensing, and threshold trends stable andappropriate. Presenting Rhythm (DC) Atrial Pacing-Ventricular Pacing (AP-UTILITY FORESTER) --- AP/UTILITY FORESTER 50 with PVC. Arrhythmic events (AE) No new arrhythmic events in monitoring period --- Since 01/22/25: No AHRor VHR episodes. Miscellaneous Observations (MISC) RV pacing > 40% noted --- UTILITY FORESTER 96%. Pt has h/o CHB/High UTILITY FORESTER percentage. Transmission Information (TI) Device Summary Report Follow Up (FU) Patient's primary treating physician will be apprised of findings us Asa Barrera MD CV CARDIAC SERVICES PRO CEDURES Final Result * eGFR (01/19/2025 3:02 PM CDT) eGFR 88 >=60 mL/min/1. 73 m2 Comment: Interpretive Data Reference Interval Normal >/= 90 mL/min/1.73m2 Mildly decreased* 60 - 89 mL/min/1.73m2 Mildly to moderately decreased 45 - 59 mL/min/1.73m2 Moderately to severely decreased 30 - 44 mL/min/1.73m2 Severely decreased 15 - 29 mL/min/1.73m2 Kidney Failure < 15 mL/min/1.73m2 *Relative to young adult level Estimated glomerular [...] interpretive data was last reviewed 2021. Blood 01/19/2025 3:02 PM CDT 01/19/2025 4:49 PM CDT us Deborah Norwood NP LAB BLOOD ORDERABLES Fin al Result [facility] [id number] [facility]. Department [place] [address] * Basic metabolic panel (01/19/2025 3:02 PM CDT) Pathologist [facility] Sodium 141 135 - 145 mmol/L Potassium, pl 4.3 3.3 - 4.9 mmol/L [facility] Chloride 104 97 - 110 mmol/L [facility] CO2 25 22 - 32 mmol/L [facility] Anion gap 12 2 - 15 mmol/L [facility] BUN 14 6 - 25 mg/dL [facility] Creatinine 0.91 0.80 - 1.30 mg/dL [facility] Glucose 93 70 - 199 mg/dL [facility] Comment: Interpretive Data Fasting glucose >/= 126 mg/dl is diagnostic for diabetes. Fasting is defined as no caloric intake [...] 2022. Calcium 9.0 8.5 - 10.3 mg/dL [facility] Blood 01/19/2025 3:02 PM CDT 01/19/2025 4:49 PM CDT Deborah Norwood NP LAB BLOOD ORDERABLES Fin al Result [facility] [address] [facility]. Department of [employer] [place] [address] * ECG 12 lead (01/19/2025 1:46 PM CDT) Deborah Norwood NP ECG ORDERABLES Edited R esult - Final * DEVICE CHECK - IN OFFICE (01/19/2025 1:14 PM CDT) Anatomical Region Laterality Modality Other 01/19/2025 2:00 AM CDT Narrative 02/04/2025 4:39 PM CDT Interpretation Summary: Procedure Note Asa Barrera MD - 02/04/2025 Interpretation Summary: Asa Barrera MD CV CARDIAC SERVICES PRO CEDURES Final Result * PSG (COMPLEX) (01/10/2025 9:00 PM TECHNICAL SERVICE REPRESENTATIVE) Narrative Baldemar Glover MD - 01/10/2025 9:00 PM TECHNICAL SERVICE REPRESENTATIVE Baldemar Glover MD 01/11/2025 3:37 PM PSG-Sleep Provider Use Only Date/Time: 01/10/2025 9:00 PM Performed by: Baldemar Glover MD Authorized by: Moises Snider MD Moises Torres MD SLEEP CENTER OR DERABLES Final Result from Last 3 Months Insurance [facility] MEDICARE MEDICARE COMMERCIAL GENERIC MEDICARE [facility] Address: [address] [address] [facility] Advance Directives For more information, please contact: [phone] * Full Code (Latest Code Status on File) Date Activated Date Inactivated Comments 09/10/2024 5:28 PM 09/13/2024 7:[address] Relationship Specialty Start Date End Date Emiliano Garza DO PCP - General Internal Medicine 12/31/22
--- OUTSIDE RECORDS SUMMARY | 2025-04-12 08:59 | XMS_ITS | Clinical Summary ---
Author Organization [facility] [place] [address] Address [address] [place] [address] Care Team Providers Care Transition Of Care Specialist Name Role Phone Emiliano Garza DO Primary Care Provider +1- [phone] Allergies No known active allergies Medications tadalafil (CIALIS) 20 mg tablet take 1 tablet by oral route every day 0 0 07/11/20 15 Active Additional Information Patient taking differently:20 mgAs needed, Reported on 01/19/2025 [id number] T-vjvfpuf-iaeg in (CENTRUM SILVER ULTRA MEN'S) 300-600-300 mcg [...] 09/10/2024 Assessment & Plan (09/13/2024 9:08 PM SHEAR SETTER): History of persistent afib with a high [...] 09/10/2024 Assessment & Plan (09/13/2024 9:12 PM SHEAR SETTER): Last TTE 01/03 with EF 50%, grade 2DD, moderate IA, moderate MVR, mild AVR, moderate pHTN (RSVP [...] benign Assessment & Plan (09/13/2024 9:12 PM SHEAR SETTER): Cont losartan, metoprolol, and doxazosin Losartan increased to 100 mg daily for better BP control Resolved Problems Problem Noted Date Diagnosed Date Resolved Date Dyslipidemia 07/11/2015 06/03/2022 Overview (02/13/2017): Dyslipidemia Encounters Date Type Department Care Team Description 03/29/2025 Telephone [facility] Cardiology [facility] Advanced Medicine 8th [place] [address] [place] [address] Asa Barrera MD 03/28/2025 Telephone [facility] Cardiology [facility] Advanced Medicine 8th [place] [address] [place] [address] Asa Barrera MD 03/28/2025 Telephone [facility] Cardiology [address] [place] [address] Khai Zuluaga MD 03/01/2025 Results Follow-Up [address] Office Building [address] [place] [address] Asa Barrera MD DEVICE CHECK - REMOTE 02/24/2025 Orders Only [address] Medical Office Building [address] [place] [address] Asa Barrera MD 01/21/2025 Telephone [facility] Medical Group Cardiology [address] [facility] [address] [phone] Khai Zuluaga MD 01/19/2025 3:[address] [facility] [address] [place] [address] High risk medication use 01/19/2025 2:15 PM CDT Office Visit [facility] Cardiology [address] [place] [address] Office Building [address] [place] [address] Deborah Norwood NP High risk medication use (Primary Dx); Second degree AV block, Mobitz type I; Persistent atrial fibrillation (HCC) 01/19/2025 1:30 PM CDT Ancillary Procedure [facility] Cardiology [facility] [address] [place] [phone] CHB (complete heart block) (HCC) (Primary Dx); Adjustment and management of cardiac pacemaker; Second degree AV block, Mobitz type I 01/19/2025 Results Follow-Up [facility] Cardiology [address] [place] [address] [address] [place] [address] Deborah Norwood NP ECG 12 lead, Basic metabolic panel, eGFR 01/11/2025 Telephone [facility] Pulmonary [facility] Advanced Medicine 8th [place] [address] [place] [address] Moises Snider MD 01/10/2025 7:30 PM SHEAR SETTER Procedure visit [facility] Neuro Sleep [address] [facility] 6th Floor [address] [place] [address] Severe obstructive sleep apnea (Primary Dx); Hypersomnia; Snoring; Persistent atrial fibrillation (HCC); Treatment-emergent central sleep apnea from Last 3 Months Surgical History Surgery [...] = 0.6 oz pur e alcohol) occassionally [facility] Utilities Answer Date Recorded In the past 12 months has th e [employer], gas, oil, or water Open Places threatened to shut off services in your [...] week 09/14/2024 How often do you attend [facility] ch or rastafarian services? Never 09/14/2024 Do you belong to any clubs o r organizations such as yazdanism groups, unions, fraternal or athletic groups, or [...] any time in the past 12 m [facility], were you homeless or living in a longterm (including now)? No 09/14/2024 Personal Safety Answer Date Recorded Have you ever been in or are you currently in a harmful physical or emotional relationship or is someone making you feel afraid or unsafe? Denies 09/10/2024 Sex and Gender Information Value Date Recorded Sex Assigned at Not on file Legal Sex Male 9:22 PM SHEAR SETTER Gender Identity Male 05/01/2021 5:56 AM CDT Sexual Orientation Straight 05/01/2021 5: 56 AM CDT Obstetrics History Last Filed Vital Signs Vital Sign Reading Time Taken Comments Blood Pressure 141/87 01/19/2025 1:52 PM CDT Pulse 57 01/19/2025 1:52 PM CDT Temperature 36.7 C (98 F) 01/10/2025 7:39 PM SHEAR SETTER Respiratory Rate 20 09/13/2024 8:16 AM SHEAR SETTER Oxygen Saturation 95% 01/19/2025 1:52 PM CDT Inhaled Oxygen Concentration - - Weight 105.2 kg (232 lb) 01/19/2025 1:52 PM CDT Height 180.3 cm (5' 11) 01/19/2025 1:52 PM CDT Body Mass Index 32.36 01/19/2025 1:52 PM CDT Plan of Treatment Health Maintenance Due Date Last Done Comments Colon Cancer Screening-Colonoscopy 1950 Depression Screening 1950 Hepatitis C Screening 1950 DTaP/Tdap/Td Vaccine (1 - Tdap) 1961 Hepatitis B Screening 1968 Pneumococcal vaccine 65+ (1 of 1 - PCV) 2000 Zoster Vaccine (2 of 3) 11/25/2012 09/30/2012 Abdominal Aortic Aneurysm (AAA) Screen 2015 Well Visit 65+ 2015 Influenza Vaccine (Season Ended) 2025 07/28/20 19, 07/06/2018 Fall Risk Assessment 09/13/2025 09/13/2024 Procedures Procedure [...] I PSG (COMPLEX) Routine 01/10/2025 9:00 PM SHEAR SETTER Hypersomnia Snoring Persistent atrial fibrillation (HCC) from Last 3 Months Results * DEVICE CHECK - REMOTE (02/24/2025 4:59 AM CDT) Anatomical Region Laterality Modality Other 02/24/2025 4:59 AM CDT Narrative 03/01/2025 4:24 PM CDT Interpretation Summary: Battery and Leads (BL) Normal parameters noted on battery and lead(s) --- 90% remaining longevity. Lead impedance, sensing, and threshold trends stable and appropriate. Presenting Rhythm (IA) Atrial Pacing-Ventricular Pacing (AP-3RD GRADE TEACHER) --- AP/3RD GRADE TEACHER 50 with PVC. Arrhythmic events (AE) No new arrhythmic events in monitoring period --- Since 01/22/25: No AHR or VHR episodes. Miscellaneous Observations (MISC) RV pacing > 40% noted --- 3RD GRADE TEACHER 96%. Pt has h/o CHB/High 3RD GRADE TEACHER percentage. Transmission Information (TI) Device Summary Report Follow Up (FU) Patient's primary treating physician will be apprised of findings Procedure Note Asa Barrera MD - 03/01/2025 Interpretation Summary: Battery and Leads (BL) Normal parameters noted on battery and lead(s) --- 90% remaininglongevity. Lead impedance, sensing, and threshold trends stable andappropriate. Presenting Rhythm (IA) Atrial Pacing-Ventricular Pacing (AP-3RD GRADE TEACHER) --- AP/3RD GRADE TEACHER 50 with PVC. Arrhythmic events (AE) No new arrhythmic events in monitoring period --- Since 01/22/25: No AHRor VHR episodes. Miscellaneous Observations (MISC) RV pacing > 40% noted --- 3RD GRADE TEACHER 96%. Pt has h/o CHB/High 3RD GRADE TEACHER percentage. Transmission Information (TI) Device Summary Report [...] ORDERABLES Fin al Result [facility] [address] [address]. Department [place] [address] * Basic metabolic panel (01/19/2025 3:02 PM CDT) Sodium 141 135 - 145 mmol/L Potassium, pl 4.3 3.3 - 4.9 mmol/L [facility] Chloride 104 97 - 110 mmol/L [facility] CO2 25 22 - 32 mmol/L [facility] Anion gap 12 2 - 15 mmol/L [facility] BUN 14 6 - 25 mg/dL [facility] Creatinine 0.91 0.80 - 1.30 mg/dL [facility] Glucose 93 70 - 199 mg/dL [facility] Comment: Interpretive Data Fasting glucose >/= 126 [...] 2022. Calcium 9.0 8.5 - 10.3 mg/dL [facility] Blood 01/19/2025 3:02 PM CDT 01/19/2025 4:49 PM CDT eDborah Norwood NP LAB BLOOD ORDERABLES Fin al Result Performing Organization Address [facility] Co de Phone Number [facility] [id number] [address] [place] [address] * ECG 12 lead (01/19/2025 1:46 PM CDT) Deborah Norwood PAYABLE MANAGER ECG ORDERABLES Edited R esult - Final * DEVICE CHECK - IN OFFICE (01/19/2025 1:14 PM CDT) Anatomical Region Laterality Modality Other 01/19/2025 2:00 AM CDT Narrative 02/04/2025 4:39 PM CDT Interpretation Summary: Procedure Note Asa Barrera MD - 02/04/2025 Interpretation Summary: us Asa Barrera MD CV CARDIAC SERVICES PRO CEDURES Final Result * PSG (COMPLEX) (01/10/2025 9:00 PM SHEAR SETTER) Narrative Baldemar Glover MD - 01/10/2025 9:00 PM SHEAR SETTER Baldemar Glover MD 01/11/2025 3:37 PM PSG-Sleep Provider Use Only Date/Time: 01/10/2025 9:00 PM Performed by: Baldemar Glover MD Authorized by: Moises Snider MD us Moises Torres MD SLEEP CENTER OR DERABLES Final Result from Last 3 Months Insurance [facility] MEDICARE COMMERCIAL GENERIC MEDICARE [facility] Advance Directives For more information, please contact: [phone] * Full Code (Latest Code Status on File) Date Activated Date Inactivated Comments 09/10/2024 5:28 PM 09/13/2024 7:37 PM Care Teams Transition Of Care Specialist Relationship Specialty Start Date End Date Emiliano Garza DO PCP - General Internal Medicine 12/31/22
--- OUTSIDE RECORDS SUMMARY | 2025-04-12 08:59 | XMS_ITS | Encounter Summary ---
Author Organization [facility] Address [address] [place] [address] Phone Care Team Providers Care Cardiology Physician Assistant Name Role Phone Emiliano Garza DO Primary Care Provider [phone] Encounter Details Date Type Department Care Team (Late st Contact Info) Description 03/01/2025 Results Follow-Up [facility] Cardiology [address] [facility] [address] [place] [address] Asa Barrera MD [facility] [address] [address] DEVICE CHECK - REMOTE Social History Tobacco Use Types Packs/Day Years Used Date Smoking Tobacco: Former Cigarettes 1 10 Smokeless Tobacco: Never Comments:Last smoked in late 1969 s Alcohol Use Standard Drinks/Week Comments Yes 0 (1 standard drink = 0.6 oz pur e alcohol) occassionally [facility] Utilities Answer Date Recorded In the past 12 months has [employer] electric, gas, oil, or water company threatened [...] week 09/14/2024 How often do you attend [facility] or latter-day services? Never 09/14/2024 Do you belong to any clubs o r organizations such as quaker groups, unions, fraternal or athletic groups, or [...] any time in the past 12 m [facility], were you homeless or living in a chcf (including now)? No 09/14/2024 Personal Safety Answer Date Recorded Have you ever been in or are you currently in a harmful physical or emotional relationship or is someone making you feel afraid or unsafe? Denies 09/10/2024 Sex and Gender Information Value Date Recorded Sex Assigned at Not on file Legal Sex Male 9:22 PM HUMAN RESOURCES EXECUTIVE ASSISTANT Gender Identity Male 05/01/2021 5:56 AM CDT Sexual Orientation Straight 05/01/2021 5: 56 AM CDT documented as of this encounter Plan of Treatment Not on file documented as of this encounter Visit Diagnoses Not on filedocumented in this encounter Care Teams Cardiology Physician Assistant Relationship Specialty Start Date End Date Emiliano Garza DO PCP - General Internal Medicine 12/31/22 documented as of this encounter
[2025-04-12 11:11] LABS: Basophils Percent Auto 0.6 % (0.2-1.2); Eosinophils Absolute Auto 0.2 K/mm3 (0-0.3); Eosinophils Percent Auto 3.3 % (0-4.4); Hematocrit 43.1 % (42.0-52.0); Hemoglobin 13.9 g/dL (14.0-18.0); Immature Granulocyte Absolute 0.01 K/mm3 (0.00-0.031); Immature Granulocyte Percent A 0.2 % (0-0.5); Lymphocytes Absolute Auto 1.53 K/mm3 (0.9-3.2); Lymphocytes Percent Auto 31.2 % (18.3-44.2); Mean Corpuscular HGB Conc 32.3 g/dl (32-36); Mean Corpuscular Hemoglobin 28.8 pg (26-34); Mean Corpuscular Volume 89.2 fl (80-100); Mean Platelet Volume 11.8 fl (7.4-10.4); Monocytes Absolute Auto 0.5 K/mm3 (0.1-0.6); Monocytes Percent Auto 10.8 % (2.6-8.5); Neutrophils Absolute Auto 2.7 K/mm3 (1.3-6.7); Neutrophils Percent Auto 53.9 % (45.5-73.1); Platelet Count Result 146 k/mm3 (150-375); Red Blood Count 4.83 M/mm3 (4.6-6.20); Red Cell Distribution Width 14.2 % (11.5-14.5); White Blood Count 4.9 K/mm3 (4.5-10.0)
[2025-04-12 17:35] LABS: Alanine Aminotransferase 22 U/L (6-50); Albumin Level 3.6 g/dL (3.5-5.1); Alkaline Phosphatase 57 U/L (38-126); Anion Gap 3 mmol/L (4-12); Aspartate Amino Transferase 35 U/L (17-59); Bilirubin,Total 0.8 mg/dL (0.2-1.3); Blood Urea Nitrogen 15 mg/dL (9-20); Calcium 8.4 mg/dL (8.4-10.2); Carbon Dioxide 28 mmol/L (22-30); Chloride 107 mmol/L (98-107); Cholesterol 151 mg/dL (0-200); Estimated Glomerular Filt Rate > 60; Glucose 97 mg/dL (65-110); HDL Direct 56 mg/dL; Potassium 4.4 mmol/L (3.4-5.0); Sodium 138 mmol/L (137-145); Total Protein 6.2 g/dL (6.3-8.2); Triglycerides 73 mg/dL (<150)
[2025-04-12 17:46] LABS: LDL Cholesterol Direct 62 mg/dL
== END 2025-04-12 08:51 | disposition home or self-care (01) ==
LOC: ANHGOSHLAB 08:51
PROVIDERS: PCP Internal Medicine; Visit Provider Internal Medicine
DX: I48.0 Paroxysmal atrial fibrillation (principal); I10 Essential (primary) hypertension; I70.0 Atherosclerosis of aorta; E78.2 Mixed hyperlipidemia; R97.20 Elevated prostate specific antigen [PSA]; D64.9 Anemia, unspecified; Z12.5 Encounter for screening for malignant neoplasm of prostate
CPT/HCPCS: 36415; 80053; 80061; 82172; 84153; 85025

== ENCOUNTER 2025-09-06 09:11 | Outpatient (CLI) | payer MEDICARE, OTHER, SELFPAY ==
--- OUTSIDE RECORDS SUMMARY | 2025-09-06 09:52 | XMS_ITS | Encounter Summary ---
Author Organization [facility] Address [address] [place] [address] Phone Care Team Providers Care Manager Financial Systems Name Role Phone Emiliano Garza DO Primary Care Provider Encounter Details Date Type Department Care Team (Late st Contact Info) Description 08/05/2025 Telephone [facility] Medicine Cardiology [address] [facility] [address] 8th [place] [address] [place] [id number] Francis Keenan MD [address] [facility] [address] [place] [address] Social History Tobacco Use Types Packs/Day Years Used Date Smoking Tobacco: Former Cigarettes 1 10 Smokeless Tobacco: Never Comments:Last smoked in late 1969 s Alcohol Use Standard Drinks/Week Comments Yes 0 (1 standard drink = 0.6 oz pur e alcohol) occassionally [facility] Utilities Answer Date Recorded In the past 12 months has [employer] electric, gas, oil, or water company threatened to shut off services in your home? No 09/14/2024 Social Connection and Isolation Panel Answer Date Recorded In a typical week, how many times do you talk on the phone with family, friends, or neighbors? More than three times a week 09/14/2024 How often do you get togethe r with friends or relatives? More than three times a week 09/14/2024 How often do you attend [facility] or jew services? Never 09/14/2024 Do you belong to [...] any time in the past 12 m [facility], were you homeless or living in a alf (including now)? No 09/14/2024 Personal Safety Answer Date Recorded Have you ever been in or are you currently in a harmful physical or emotional relationship or is someone making you feel afraid or unsafe? Denies 09/10/2024 Sex and Gender Information Value Date Recorded Sex Assigned at Not on file Legal Sex Male 9:22 PM RADAR SIGNAL PROCESSING ENGINEER Gender Identity Male 05/01/2021 5:56 AM CDT Sexual Orientation Straight 05/01/2021 5: 56 AM CDT documented as of this encounter Miscellaneous Notes * Telephone Encounter - Francis Keenan MD - 08/05/2025 12:24 PM CDT I spoke to the patient about the aorta and my review of the scan I reviewed the CT scans from 2020 and 2022. The scans are of different quality and different gatingbut when I made measurements on coronal views of the aortic root in 2020 in 2022 I made measurements of the aorta at that plane on those images of 49 mm and 48 mm respectively. Therefore there has not been a substantial change in the aortic diameter over the past 4 years. He is going to have follow up imaging in October. * Telephone Encounter - Vikki Gould - 08/05/2025 10:50 AM CDT Ree Hdz would like a return call to discuss comparison on scans. He can be reached at [phone]. documented in this encounter Plan of Treatment Not on file documented as of this encounter Visit Diagnoses Not on filedocumented in this encounter Care Teams Manager Financial Systems Relationship Specialty Start Date End Date Emiliano Garza DO PCP - General Internal Medicine 12/31/22 documented as of this encounter
--- OUTSIDE RECORDS SUMMARY | 2025-09-06 09:52 | XMS_ITS | Encounter Summary ---
Author Organization [facility] Address [address] [place] [address] Phone Care Team Providers Care Appliance Fixer Name Role Phone GregEmiliano Reid Primary Care Provider Encounter Details Date Type Department Care Team (Late st Contact Info) Description 07/27/2025 Results Follow-Up [facility] Medicine Cardiology [address] [facility] [address] [place] [address] Deborah Norwood, WRITING MANAGER [address] [address] ECG 12 lead, Basic metabolic panel, eGFR Social History Tobacco Use Types Packs/Day Years Used Date Smoking Tobacco: Former Cigarettes 1 10 Smokeless Tobacco: Never Comments:Last smoked in late 1969 s Alcohol Use Standard Drinks/Week Comments Yes 0 (1 standard drink = 0.6 oz pur e alcohol) occassionally [facility] Utilities Answer Date Recorded In the past 12 months has [employer] electric, gas, oil, or water company threatened [...] week 09/14/2024 How often do you attend [facility] or orthodoxy services? Never 09/14/2024 Do you belong to any clubs o r organizations such as muslim groups, unions, fraternal or athletic groups, or [...] any time in the past [address] [facility], were you homeless or living in a long-term (including now)? No 09/14/2024 Personal Safety Answer Date Recorded Have you ever been in or are you currently in a harmful physical or emotional relationship or is someone making you feel afraid or unsafe? Denies 09/10/2024 Sex and Gender Information Value Date Recorded Sex Assigned at Not on file Legal Sex Male 9:22 PM PHYSICAL THER Gender Identity Male 05/01/2021 5:56 AM CDT Sexual Orientation Straight 05/01/2021 5: 56 AM CDT documented as of this encounter Plan of Treatment Not on file documented as of this encounter Visit Diagnoses Not on filedocumented in this encounter Care Teams Appliance Fixer Relationship Specialty Start Date End Date Emiliano Garza DO PCP - General Internal Medicine 12/31/22 documented as of this encounter
--- OUTSIDE RECORDS SUMMARY | 2025-09-06 09:52 | XMS_ITS | Clinical Summary ---
Author Organization [facility] Care Team Providers Care Oxidation Engineer Name Role Phone Unavailable Primary Care Provider Unavailabl e Social History Tobacco Use Types Packs/Day Years Used Date Smoking Tobacco: Never Assessed Sex and Gender Information Value Date Recorded Sex Assigned at Not on file Legal Sex Male 11:56 AM DRY BOSS Gender Identity Not on file Sexual Orientation Not on file Plan of Treatment Health Maintenance Due Date Last Done Comments Hepatitis C Virus (HCV) Screening 1950 TdaP Immunization 1950 Cologuard 1995 Colonoscopy 1995 Colorectal Cancer Screening 1995 Immunochemical Fecal Occult Blood 1995 Pneumococcal Immunization (5 0+ years) (1 of 1 - PCV) 2000 Zoster Immunization (2 of 3) 11/25/2012 09/30/2012 Respiratory Syncytial Virus (RSV) Immunization (Adult) (1 - 1-dose 75+ series) 2025 Influenza Immunization (#1) 07/11/202507/11, 07/06/2018 SARS-COV-2 Immunization (3 - season) 2025 01/15/2021, 12/18/2020 Hepatitis B Immunization Aged Out No longer eligible based on patient's age to complete this topic Human Papillomavirus (HPV) Immunization Aged Out No longer eligible b ased on patient's age to complete this topic Meningococcal Immunization (ACWY) Aged Out No longer eligible b ased on patient's age to complete this topic Rotavirus Immunization Aged Out No lo nger eligible based on patient's age to complete this topic
--- OUTSIDE RECORDS SUMMARY | 2025-09-06 09:52 | XMS_ITS | Clinical Summary ---
Author Organization [facility] [place] [address] Address [address] [place] [address] Care Team Providers Care Mobile Homes Repairer Name Role Phone DominicEmiliano abarca Reid Primary Care Provider Allergies No known active allergies Medications tadalafil (CIALIS) 20 mg tablet take 1 tablet by oral route every day 0 0 07/11/20 15 Active xajwkkzy-qxg-C T-bdozgok-voox in (CENTRUM SILVER ULTRA MEN'S) 300-600-300 mcg [...] as needed Prior to dental procedure Active apixaban (ELIQUIS) 5 mg tablet Take 1 tablet (5 mg total) by mouth 2 (two) times a day 60 tablet 10 01/05/20 25 Active metoprolol XL (TOPROL-XL) 50 mg extended release tablet TAKE 1 TABLET DAILY 90 tablet 3 04/05/20 25 Active losartan (COZAAR) 50 mg tablet Take 1 tablet (50 mg total) by mouth daily Active dofetilide (TIKOSYN) 500 mcg capsule TAKE 1 CAPSULE TWICE A DAY 180 capsule 1 09/05/20 25 Active dofetilide (TIKOSYN) 500 mcg capsule Take 1 capsule (500 mcg total) by mouth 2 (two) times a day 180 capsule 1 03/30/20 25 025 Discontinued losartan (COZAAR) 100 mg tablet Take 1 tablet (100 mg total) by mouth daily 90 tablet 3 08/02/20 25 025 Discontinued(Th erapy completed) Active Problems Problem Noted Date Diagnosed Date Severe obstructive sleep apnea 01/11/2025 High risk medication use 11/11/2024 Atrial fibrillation 09/10/2024 Assessment & Plan (04/19/2025 2:11 PM CDT): On rhythm control with dofetilide. No clinical recurrences. On anticoagulation. Assessment & Plan (09/13/2024 9:08 PM DISTRICT REPRESENTATIVE): History of persistent afib with a [...] 09/10/2024 Assessment & Plan (09/13/2024 9:12 PM DISTRICT REPRESENTATIVE): Last TTE 01/03 with EF 50%, grade 2DD, moderate CO, moderate MVR, mild AVR, moderate pHTN (RSVP [...] aneurysm 12/28/2015 Overview (02/13/2017): Ascending aortic aneurysm Assessment & Plan (04/19/2025 2:11 PM CDT): Aneurysm varied in size from 4.[address] scan to 4.8 cm on echo. We will do a repeat CT scan for more definitive evaluation. His blood pressure is under good control. No history of aortic dissection or familial aortic disease Aortic valve insufficiency 12/28/2015 Overview (02/13/2017): Nonrheumatic aortic valve insufficiency Aortic aneurysm 07/11/2015 Overview (02/13/2017): Aortic aneurysm Assessment & Plan (09/10/2024 5:42 PM CDT): Last TTE with dilation of sinus of Valsalva 4.9 cm and ascending aorta to 3.3- 3.9 cm. -F/u outpatient for monitoring Benign hypertension 07/11/2015 Overview (02/13/2017): HTN (hypertension), benign Assessment & Plan (09/13/2024 9:12 PM DISTRICT REPRESENTATIVE): Cont losartan, metoprolol, and doxazosin Losartan increased to 100 mg daily for better BP control Resolved Problems Problem Noted Date Diagnosed Date Resolved Date Dyslipidemia 07/11/2015 06/03/2022 Overview (02/13/2017): Dyslipidemia Encounters Date Type Department Care Team Description 09/05/2025 Orders Only [facility] Medicine Cardiology [address] [facility] [address] [place] [phone] Kody Tang MD Benign hypertension (Primary Dx) 08/05/[address] [facility] [address] [facility] 8th [place] [address] [place] [phone] Francis Keenan MD 08/02/[address] [facility] Cardiology [address] [facility] Office Building [address] [place] [address] Kody Tang MD Chronic heart failure with preserved ejection fraction (HFpEF) (Primary Dx); Paroxysmal atrial fibrillation (HCC) 08/01/2025 12:14 PM CDT - 08/01/2025 11:59 PM CDT Hospital Encounter [facility] [address] [place] [address] Discharge Disposition: Discharge to home or self care 08/01/2025 12:12 PM CDT - 08/01/2025 11:59 PM CDT Hospital Encounter [facility] [address] [place] [address] Discharge Disposition: Discharge to home or self care 07/29/2025 8:30 AM CDT Office Visit [facility] Cardiology [address] [place] [address] 8th [place] [address] [place] [address] Francis Keenan MD Aneurysm of ascending aorta without rupture (Primary Dx) 07/27/2025 1:35 PM CDT Lab [facility] [address] [place] [address] High risk medication use 07/27/2025 1:15 PM CDT Office Visit [facility] Cardiology [address] [place] [address] [address] [place] [phone] Deborah Norwood NP Bradycardia (Primary Dx); High risk medication use; Paroxysmal atrial fibrillation (HCC); Second degree AV block, Mobitz type I 07/27/2025 12:45 PM CDT Ancillary Procedure [facility] [address] [place] [address] 3 [address] [place] [phone] Adjustment and management of cardiac pacemaker; CHB (complete heart block) 07/27/2025 Results Follow-Up [facility]iology [address] [place] [address] 3 [address] [place] [phone] Deborah Norwood NP ECG 12 lead, Basic metabolic panel, eGFR 06/24/[address] [facility] [address] [place] [address] 8th [place] [address] [place] [address] Asa Barrera MD 06/08/[address] [facility] [address] [facility] 8th [place] [address] [place] [address] Asa Barrera MD 06/08/[address] [facility] [address] [place] [address] [place] [address] Francis Keenan MD 06/07/2025 3:24 PM CDT - 06/07/2025 11:59 PM CDT Hospital Encounter [facility] Cardiac Diagnostic Lab [address] [phone] Aortic valve insufficiency, etiology of cardiac valve disease unspecified; Aneurysm of ascending aorta without rupture Discharge Disposition: Discharge to home or self care 06/07/2025 10:30 AM CDT Office Visit [facility] Cardiothoracic Surgery [facility] [address] Room [address] [place] [phone] Khari Griffith MD Aneurysm of ascending aorta without rupture 06/07/[address] [facility] Cardiothoracic Surgery [address] [place] [address] [address] Room [address] [place] [phone] Khari Griffith MD Aortic valve insufficiency, etiology of cardiac valve disease unspecified (Primary Dx); Aneurysm of ascending aorta without rupture from Last 3 Months Surgical History Surgery [...] = 0.6 oz pur e alcohol) occassionally [facility] Utilities Answer Date Recorded In the [...] often do you attend chur ch or restorationist services? Never 09/14/2024 Do you belong to any clubs o r organizations such as uatsdin groups, unions, fraternal or athletic groups, or [...] time in the past [address] [facility], were you homeless or living in a penitentiary (including now)? No 09/14/2024 Personal Safety Answer Date Recorded Have you ever been in or are you currently in a harmful physical or emotional relationship or is someone making you feel afraid or unsafe? Denies 09/10/2024 Sex and Gender Information Value Date Recorded Sex Assigned at Not on file Legal Sex Male 9:22 PM DISTRICT REPRESENTATIVE Gender Identity Male 05/01/2021 5:56 AM CDT Sexual Orientation Straight 05/01/2021 5: 56 AM CDT Obstetrics History Last Filed Vital Signs Vital Sign Reading Time Taken Comments Blood Pressure 162/80 07/29/2025 8:02 AM CDT Pulse 59 07/29/2025 8:02 AM CDT Temperature 36.7 C (98 F) 01/10/2025 7:39 PM DISTRICT REPRESENTATIVE Respiratory Rate 20 09/13/2024 8:16 AM DISTRICT REPRESENTATIVE Oxygen Saturation 94% 07/29/2025 8:02 AM CDT Inhaled Oxygen Concentration - - Weight 107.7 kg (237 lb 6.4 oz) 07/29/2025 8:02 AM CDT Height 180.3 cm (5' 11) 07/29/2025 8:02 AM CDT Body Mass Index 33.11 07/29/2025 8:02 AM CDT Plan of Treatment Health Maintenance Due Date Last Done Comments Colon Cancer Screening-Colonoscopy 1950 Depression Screening 1950 Hepatitis C Screening 1950 Hepatitis B Screening 1968 Abdominal Aortic Aneurysm (A AA) Screen 2015 Well Visit 65+ 2015 Influenza Vaccine (#1) 2025 , 07/30/2021, 08/02/2020, Additional history exists Fall Risk Assessment 09/13/2025 09/13/2024 DTaP/Tdap/Td Vaccine (3 - Td or Tdap) 03/21/2033 03/21/2023, 06/07/2013, 03/14/2004 Pneumococcal vaccine 65+ Completed 01/24/2017, 09/10 Zoster Vaccine Completed 02/24/2023, 02/06/2023, 09/30/2012 Procedures Procedure Name Priority Date/Time Associated Diagnosis Comments CT BODY OUTSIDE REFERENCE Routine 08/01/2025 12:[address] BODY OUTSIDE REFERENCE Routine 08/01/2025 12:12 PM CDT EGFR Routine 07/27/2025 1:47 PM CDT High risk medication use BASIC METABOLIC PANEL Routine 07/27/2025 1:47 PM CDT High risk medication use ECG 12-LEAD Routine 07/27/2025 1:22 PM CDT Bradycardia DEVICE CHECK - IN OFFICE Routine 07/27/2025 12:29 PM CDT Adjustment and management of cardiac pacemaker CHB (complete heart block) TRANSTHORACIC ECHO (TTE) COMPLETE W DOPPLER/CF W CONTRAST Routine 06/07/2025 5:16 PM CDT Aortic valve insufficiency, etiology of cardiac valve disease unspecified Aneurysm of ascending aorta without rupture from Last 3 Months Results * CT Body Outside Reference (08/01/2025 12:14 PM CDT) Impressions [facility] - 08/01/2025 12:14 PM CDT These images are for Reference purposes only and have not been reviewed by [facility] Radiology. There will be no report generated by a [facility] Radiologist. Narrative [facility] - 08/01/2025 12:14 PM CDT EXAMINATION: Images For Reference Purposes Only us Khari Griffith MD IMG CT PROCEDURES Fi nal Result [facility] * CT Body Outside Reference (08/01/2025 12:12 PM CDT) Impressions [facility] - 08/01/2025 12:12 PM CDT These images are for Reference purposes only and have not been reviewed by [facility] Radiology. There will be no report generated by a [facility] Radiologist. Narrative [facility] - 08/01/2025 12:12 PM CDT EXAMINATION: Images For Reference Purposes Only us Khari Griffith MD IMG CT PROCEDURES Fi nal Result Performing Organization Address [facility] Co de Phone Number [facility] * eGFR (07/27/2025 1:47 PM CDT) eGFR >90 >=60 mL/min/1. 73 m2 Comment: Interpretive Data [...] interpretive data was last reviewed 2021. Blood 07/27/2025 1:47 PM CDT 07/27/2025 2:31 PM CDT Deborah Norwood NP LAB BLOOD ORDERABLES Fin al Result Performing Organization Address City/[facility] Co de Phone Number [facility] [phone] [facility]. [place] [address] * Basic metabolic panel (07/27/2025 1:47 PM CDT) Sodium 140 135 - 145 mmol/L Potassium, pl 4.2 3.3 - 4.9 mmol/L [facility] Chloride 105 97 - 110 mmol/L [facility] CO2 26 22 - 32 mmol/L [facility] Anion gap 9 2 - 15 mmol/L [facility] BUN 16 6 - 25 mg/dL [facility] Creatinine 0.82 0.80 - 1.30 mg/dL [facility] Glucose 96 70 - 199 mg/dL [facility] Comment: Interpretive Data Fasting glucose >/= [...] interpretive data was last revised 2022. Calcium 8.7 8.5 - 10.3 mg/dL [facility] Blood 07/27/2025 1:47 PM CDT 07/27/2025 2:31 PM CDT Deborah Norwood NP LAB BLOOD ORDERABLES Fin al Result [facility] [address] [facility]. Department [place] [address] * ECG 12 lead (07/27/2025 1:22 PM CDT) Deborah Norwood FOREMAN/PROJECT MANAGER ECG ORDERABLES Edited R esult - Final * DEVICE CHECK - IN OFFICE (07/27/2025 12:29 PM CDT) Anatomical Region Laterality Modality Other 07/27/2025 2:00 AM CDT Narrative 08/02/2025 10:06 AM CDT Interpretation Summary: Battery and Leads (BL) Normal parameters noted on battery and lead(s) --- Estimate 9 years 2 months to YULISA Procedure Note Asa aBrrera MD - 08/02/2025 Interpretation Summary: Battery and Leads (BL) Normal parameters noted on battery and lead(s) --- Estimate 9 years 2months to YULISA us Asa Barrera MD [facility] PRO CEDURES Final Result * TRANSTHORACIC ECHO (TTE) COMPLETE W DOPPLER/CF W CONTRAST (06/07/2025 5:16 PM CDT) EF Mod BP 47 % CONS SCIMAGE Anatomical Region Laterality Modality Ultrasound 06/07/2025 4:02 PM CDT Narrative 06/08/2025 8:22 AM CDT [facility] Cardiac [place] [address] Transthoracic Echocardiographic Report Patient Name: GUY GATES A : 1950 (75y ) Gender: M Study Date: 06/07/2025 04:02:33 PM Ht(Inch): 71 Wt(Lb): 235.01 BSA: 2.31 Bag Hanger: Noelle Antonio RDCS, RCCS Location: [facility] Order Provider: KHARI GRIFFITH Heart Rate: 60 BMI: 32.77 BP: 148 / 64 Ref Provider: KHARI GRIFFITH PROCEDURES: Echocardiographic Report: Transthoracic complete echo with strain imaging and contrast, 2D, spectral and tissue Doppler, color flow Doppler, M-mode. Contrast: Contrast Enhancement was Employed: After initial imaging due to sub- optimal quality related to co-morbidity defined by patient's body habitus and due to suboptimal image quality with inadequate visualization of at least 2 of 16 LV wall segments in any view after initial imaging. Perflutren contrast was administered using the volume necessary to obtain adequate images. 0.6 ml Optison Administered, (2.4 ml wasted). INDICATIONS: I35.1 Nonrheumatic aortic (valve) insufficiency and I71.21 Aneurysm of the ascending aorta, without rupture. CONCLUSIONS: 1. Normal LV wall thickness. Mildly depressed left ventricular systolic function. The Ejection Fraction (Savage's) is measured at 47 %. Normal diastolic function. The average global longitudinal strain is abnormal. 2. There is hypokinesis in the apex. 3. Normal right ventricular size. Normal right ventricular systolic function. 4. Normal mitral valve structure. Moderate mitral valve regurgitation. The mean transmitral gradient is: 2 mmHg. 5. Normal trileaflet aortic valve. Mildly thickened aortic valve leaflets. Mild aortic valve regurgitation. The mean transaortic gradient is 6 mmHg. The aortic valve area by the continuity equation (using VTI) is 3.46 cm2. Aortic valve dimensionless index is 0.76. 6. 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 Dilation of the aortic root when indexed. 7. Mild global left ventricular systolic dysfunction with apical hypokinesis and abnormal septal motion consistent with pacemaker. Overall ejection fraction estimated at 45-50%. Pacemaker in the right ventricle. 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 Ascending aorta 4.0 cm. Tricuspid aortic valve with mild aortic regurgitation. Xbko-rg-lxqqdwjb 2+ mitral regurgitation. Ubto-ee-drimzebb tricuspid regurgitation estimated PA pressure 34 mm Hg. ATTESTATION: I have personally reviewed and interpreted this study without fellow or resident. - DISCLAIMER: The study images and the final report will be retained in the patient chart by the [facility] for the legally required time period. This chart constitutes the legal record of any testing performed. FINDINGS: Left Ventricle: Normal LV wall thickness. Mildly depressed left ventricular systolic function. The Ejection Fraction (Savage's) is measured at 47 %. Normal diastolic function. The average global longitudinal strain is abnormal. The LV global strain is: -13.3 %. Regional Wall Motion: There is hypokinesis in the apex. Right Ventricle: Normal right ventricular size. Normal right ventricular systolic function. Left Atrium: The left atrium is normal in size. Moderately dilated left atrium. Right Atrium: Right atrial dilatation. Atrial Septum: Normal interatrial septum. Mitral Valve: Normal mitral valve structure. Moderate mitral valve regurgitation. The mean transmitral gradient is: 2 mmHg. Aortic Valve: Normal trileaflet aortic valve. Mildly thickened aortic valve leaflets. Mild aortic valve regurgitation. The mean transaortic gradient is 6 mmHg. The aortic valve area by the continuity equation (using VTI) is 3.46 cm2. Aortic valve dimensionless index is 0.76. Tricuspid Valve: Normal tricuspid valve structure. Moderate tricuspid regurgitation. Pulmonic Valve: Normal pulmonic valve structure. Moderate pulmonic regurgitation. Pericardium: Normal pericardium without pericardial effusion. 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 Dilation of the aortic root when indexed. IVC: IVC is normal in size. Pulmonary Artery: Normal pulmonary artery size. MEASUREMENTS: 2D/MM Value Range Doppler Value Range LVIDd 2D 5.36 cm [ 4.20 - 5.80 ] AV Peak Geoff 1.7 m/s [ 1.0 - 1.7 ] LVIDs 2D 4.07 cm [ 2.50 - 4.00 ] AV Peak PG 11.56 mmHg IVSd 2D 1.08 cm [ 0.60 - 1.00 ] AV Mean PG 6 mmHg LVPWd 2D 0.90 cm [ 0.60 - 1.00 ] AV VTI 38.7 cm LV Thickness Ratio 1.2 LVOT Peak Geoff 1.1 m/s [ 0.7 - 1.1 ] LV FS 2D 24.14 % [ 25.00 - 43.00 ] LVOT Peak PG 4.84 mmHg LV Mass 2D 206.42 g LVOT Mean PG 3 mmHg LV Mass Index 2D 89.33 g/m2 LVOT VTI 29.6 cm RWT 0.34 LVOT Diam 2.40 cm EDV Mod BP 207.23 ml [ 62.00 - 150.00 ] VILMA VTI 3.46 cm2 LV EDV Index 89.68 ml/m2 LVOT/AV VTI 0.76 - Dimensionless index (DVI) ESV Mod BP 110.53 ml [ 21.00 - 61.00 ] AI Peak Geoff 3.9 m/s EF Mod BP 47 % [ 52 - 72 ] AI Peak PG 59 mmHg LV GLS -13.3 % [ -25.0 - -18.0 ] AI Decel Time 2207.13 sec LA Length 4C 6.40 cm AI Decel Lyman 1.75 m/s2 LA Length 2C 7.44 cm AI PHT 640.07 msec LA Volume BP 102.89 ml MV E Peak Geoff 0.6 m/s [ 0.6 - 1.3 ] LA Volume Index 44.52 ml/m2 [ 16.00 - 34.00 ] MV A Peak Geoff 0.8 m/s [ 1.0 - 1.2 ] MV Annulus 2D 3.86 cm MV E/A 0.8 ratio [ 0.8 - 1.5 ] RV Base Dimen 2D 5.1 cm [ 2.5 - 4.2 ] MV Peak Geoff 1.0 m/s TAPSE 3.40 cm [ 1.71 - 5.00 ] MV Peak PG 4.00 mmHg RA Volume 127.52 ml MV Mean PG 2 mmHg RA Volume Index 55.18 ml/m2 MV VTI 41.5 cm AoR Diam 2D 4.91 cm [ 3.10 - 3.70 ] MV Decel Time 295.66 msec [ 104.00 - 258.00 ] Ao Root Index 2.12 cm/m2 [ 1.00 - 2.00 ] Med E` Geoff 5.0 cm/sec [ 8.0 - 25.0 ] Asc Ao Diam 2D 4.05 cm Lat E` Geoff 6.3 cm/sec [ 10.0 - 25.0 ] Asc Ao Index 1.75 cm/m2 Average E/E` 10.62 MR Peak Geoff 6.3 m/s MR Peak PG 158.76 mmHg MV Alias Geoff 0 m/s MR VTI 282.1 cm MR Flow 0.00 ml/sec MR PISA 0.5 MR EROA 0.1 cm2 PISA Regurgitant Volume 28.2 ml TV Peak Geoff 0.6 m/s [ 0.3 - 0.7 ] TV Peak PG 1.44 mmHg TV Mean PG 0 mmHg RV S` 17.33 cm/sec TR Peak Geoff 2.7 m/s [ 1.0 - 2.8 ] TR Peak PG 29.2 mmHg PV Peak Geoff 0.9 m/s [ 0.4 - 0.8 ] PV Peak PG 3.24 mmHg PI Peak Geoff 0.9 m/s PI ED Geoff 103.56 m/sec PI Peak PG 3 mmHg Electronically Signed By: Francis Keenan M.D. 06/08/2025 8:22:33 AM CDT Procedure Note Francis Keenan MD - 06/08/2025 [facility] Cardiac [place] [address] Transthoracic Echocardiographic Report Patient Name: GUY GATES A : 1950 (75y ) Gender: M Study Date: 06/07/2025 04:02:33 PM Ht(Inch): 71 Wt(Lb): 235.01 BSA: 2.31 Bag Hanger: Noelle Antonio RDCS [facility] Location: [facility] Order Provider:KHARI GRIFFITH Heart Rate: 60 BMI: 32.77 BP: 148 / 64 Ref Provider: KHARI GRIFFITH PROCEDURES: Echocardiographic Report: Transthoracic complete echo with strain imagingand contrast, 2D, spectral and tissue Doppler, color flow Doppler, M-mode. Contrast: Contrast Enhancement was Employed: After initial imaging due tosub- optimal quality related to co-morbidity defined by patient's body habitus and dueto suboptimal image quality with inadequate visualization of at least 2 of 16 LV wallsegments in any view after initial imaging. Perflutren contrast was administered using thevolume necessary to obtain adequate images. 0.6 ml Optison Administered, (2.4 mlwasted). INDICATIONS: I35.1 Nonrheumatic aortic (valve) insufficiency and I71.21 Aneurysm of theascending aorta, without rupture. CONCLUSIONS: 1. Normal LV wall thickness. Mildly depressed left ventricular systolicfunction. The Ejection Fraction (Savage's) is measured at 47 %. Normal diastolicfunction. The average global longitudinal strain is abnormal. 2. There is hypokinesis in the apex. 3. Normal right ventricular size. Normal right ventricular systolicfunction. 4. Normal mitral valve structure. Moderate mitral valve regurgitation. Themean transmitral gradient is: 2 mmHg. 5. Normal trileaflet aortic valve. Mildly thickened aortic valve leaflets.Mild aortic valve regurgitation. The mean transaortic gradient is 6 mmHg. The aorticvalve area by the continuity equation (using VTI) is 3.46 cm2. Aortic valvedimensionless index is 0.76. 6. 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 Dilation of theaortic root when indexed. 7. Mild global left ventricular systolic dysfunction with apicalhypokinesis and abnormal septal motion consistent with pacemaker. Overall ejection fractionestimated at 45-50%. Pacemaker in the right ventricle. Aortic root aneurysm measuring 4.9-5 cmat the sinuses of Valsalva. Ascending aorta 4.0 cm. Tricuspid aortic valve with mildaortic regurgitation. Zbza-kj-lyimzxsd 2+ mitral regurgitation. Scru-yw-twzyjpiccfejplnyp regurgitation estimated PA pressure 34 mm Hg. ATTESTATION: I have personally reviewed and interpreted this study without fellow orresident. - DISCLAIMER: The study images and the final report will be retained in the patientchart by the Echo Laboratory for the legally required time period. This chart constitutesthe legal record of any testing performed. FINDINGS: Left Ventricle: Normal LV wall thickness. Mildly depressed leftventricular systolic function. The Ejection Fraction (Savage's) is measured at 47 %. Normaldiastolic function. The average global longitudinal strain is abnormal. The LVglobal strain is: -13.3 %. Regional Wall Motion: There is hypokinesis in the apex. Right Ventricle: Normal right ventricular size. Normal right ventricularsystolic function. Left Atrium: The left atrium is normal in size. Moderately dilated leftatrium. Right Atrium: Right atrial dilatation. Atrial Septum: Normal interatrial septum. Mitral Valve: Normal mitral valve structure. Moderate mitral valveregurgitation. The mean transmitral gradient is: 2 mmHg. Aortic Valve: Normal trileaflet aortic valve. Mildly thickened aorticvalve leaflets. Mild aortic valve regurgitation. The mean transaortic gradient is 6 mmHg.The aortic valve area by the continuity equation (using VTI) is 3.46 cm2. Aorticvalve dimensionless index is 0.76. Tricuspid Valve: Normal tricuspid valve structure. Moderate tricuspidregurgitation. Pulmonic Valve: Normal pulmonic valve structure. Moderate pulmonicregurgitation. Pericardium: Normal pericardium without pericardial effusion. 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 Dilation of theaortic root when indexed. IVC: IVC is normal in size. Pulmonary Artery: Normal pulmonary artery size. MEASUREMENTS: 2D/MM Value Range DopplerValue Range LVIDd 2D 5.36 cm [ 4.20 - 5.80 ] AV Peak Vel1.7 m/s [ 1.0 - 1.7 ] LVIDs 2D 4.07 cm [ 2.50 - 4.00 ] AV Peak PG11.56 mmHg IVSd 2D 1.08 cm [ 0.60 - 1.00 ] AV Mean PG6 mmHg LVPWd 2D 0.90 cm [ 0.60 - 1.00 ] AV VTI38.7 cm LV Thickness Ratio 1.2 LVOT Peak Vel1.1 m/s [ 0.7 - 1.1 ] LV FS 2D 24.14 % [ 25.00 - 43.00 ] LVOT Peak PG4.84 mmHg LV Mass 2D 206.42 g LVOT Mean PG3 mmHg LV Mass Index 2D 89.33 g/m2 LVOT VTI29.6 cm RWT 0.34 LVOT Diam2.40 cm EDV Mod BP 207.23 ml [ 62.00 - 150.00 ] VILMA VTI3.46 cm2 LV EDV Index 89.68 ml/m2 LVOT/AV VTI0.76 - Dimensionless index (DVI) ESV Mod BP 110.53 ml [ 21.00 - 61.00 ] AI Peak Vel3.9 m/s EF Mod BP 47 % [ 52 - 72 ] AI Peak PG59 mmHg LV GLS -13.3 % [ -25.0 - -18.0 ] AI Decel [id number] sec LA Length 4C 6.40 cm AI Decel Slope1.75 m/s2 LA Length 2C 7.44 cm AI HDN666.07 msec LA Volume BP 102.89 ml MV E Peak Vel0.6 m/s [ 0.6 - 1.3 ] LA Volume Index 44.52 ml/m2 [ 16.00 - 34.00 ] MV A Peak Vel0.8 m/s [ 1.0 - 1.2 ] MV Annulus 2D 3.86 cm MV E/A0.8 ratio [ 0.8 - 1.5 ] RV Base Dimen 2D 5.1 cm [ 2.5 - 4.2 ] MV Peak Vel1.0 m/s TAPSE 3.40 cm [ 1.71 - 5.00 ] MV Peak PG4.00 mmHg RA Volume 127.52 ml MV Mean PG2 mmHg RA Volume Index 55.18 ml/m2 MV VTI41.5 cm AoR Diam 2D 4.91 cm [ 3.10 - 3.70 ] MV Decel Pxyo106.66 msec [ 104.00 - 258.00 ] Ao Root Index 2.12 cm/m2 [ 1.00 - 2.00 ] Med E` Vel5.0 cm/sec [ 8.0 - 25.0 ] Asc Ao Diam 2D 4.05 cm Lat E` Vel6.3 cm/sec [ 10.0 - 25.0 ] Asc Ao Index 1.75 cm/m2 Average E/E`10.62 MR Peak Geoff 6.3 m/s MR Peak PG 158.76 mmHg MV Alias Geoff 0 m/s MR VTI 282.1 cm MR Flow 0.00 ml/sec MR PISA 0.5 MR EROA 0.1 cm2 PISA Regurgitant Volume 28.2 ml TV Peak Geoff 0.6 m/s [ 0.3 - 0.7] TV Peak PG 1.44 mmHg TV Mean PG 0 mmHg RV S` 17.33 cm/sec TR Peak Geoff 2.7 m/s [ 1.0 - 2.8] TR Peak PG 29.2 mmHg PV Peak Geoff 0.9 m/s [ 0.4 - 0.8] PV Peak PG 3.24 mmHg PI Peak Geoff 0.9 m/s PI ED Geoff 103.56 m/sec PI Peak PG 3 mmHg Electronically Signed By: Francis Keenan M.D. 06/08/2025 8:22:33 AM CDT Khari Griffith MD CV ECHO PROCEDURES F inal Result from Last 3 Months Insurance [facility] MEDICARE MEDICARE COMMERCIAL [facility] MEDICARE [facility] Advance Directives For more information, please contact: [phone] * Full Code (Latest Code Status on File) Date Activated Date Inactivated Comments 09/10/2024 5:28 PM 09/13/2024 7:37 PM Care Teams Mobile Homes Repairer Relationship Specialty Start Date End Date Emiliano Garza DO PCP - General Internal Medicine 12/31/22
--- OUTSIDE RECORDS SUMMARY | 2025-09-06 09:52 | XMS_ITS | Encounter Summary ---
Author Organization [facility] Address [address] [place] [address] Phone Care Team Providers Care Cutting And Splicing Supervisor Name Role Phone ConcepciónEmiliano terrazas Reid FONSECA Primary Care Provider Encounter Details Date Type Department Care Team (Late st Contact Info) Description 09/05/2025 Orders Only [facility] Medicine Cardiology [address] [place] [address] Kody Tang MD [address] [place] [address] Benign hypertension (Primary Dx) Social History Tobacco Use Types Packs/Day Years Used Date Smoking Tobacco: Former Cigarettes 1 10 Smokeless Tobacco: Never Comments:Last smoked in late 1969 s Alcohol Use Standard Drinks/Week Comments Yes 0 (1 standard drink = 0.6 oz pur e alcohol) occassionally [facility] Utilities Answer Date Recorded In the past 12 months has [employer] electric, gas, oil, or water company threatened [...] week 09/14/2024 How often do you attend [facility] or christian services? Never 09/14/2024 Do you belong to any clubs o r organizations such as faith groups, unions, fraternal or athletic groups, or [...] any time in the past 12 m [facility], were you homeless or living in a longterm (including now)? No 09/14/2024 Personal Safety Answer Date Recorded Have you ever been in or are you currently in a harmful physical or emotional relationship or is someone making you feel afraid or unsafe? 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 Gender Identity Male 05/01/2021 5:56 AM CDT Sexual Orientation Straight 05/01/2021 5: 56 AM CDT documented as of this encounter Plan of Treatment Scheduled Orders Name Type Priority Associated Diagnoses Orde r Schedule Basic metabolic panel Lab Routine Benign hypertension Expected: 09/05/2025, Expires: 09/05/2026 documented as of this encounter Visit Diagnoses Diagnosis Benign hypertension- Primary Essential hypertension, benign documented in this encounter Care Teams Cutting And Splicing Supervisor Relationship Specialty Start Date End Date Emiliano Garza DO PCP - General Internal Medicine 12/31/22 documented as of this encounter
--- OUTSIDE RECORDS SUMMARY | 2025-09-06 09:52 | XMS_ITS | Clinical Summary ---
Author Organization [facility] Address [address] [place] [address] Care Team Providers Care Pharmacy Tech Name Role Phone Emiliano Garza DO Primary Care Provider [phone]- [phone] Source Comments [facility],non-owned Affiliates and Associated Physician Practices is amultiple site organization consisting of ambulatory clinics and hospital sitesin [place], [place], [place] and [place]. This disclosure is being madepursuant to the Care Everywhere program and may not contain all information available regarding this patient. Last updated 18.[facility] Allergies No known active allergies Medications * [...] Comments Blood Pressure 144/83 11/23/2024 3:18 PM [employer] Pulse 59 11/23/2024 3:18 PM [employer] Temperature 36.9 C (98.4 F) 11/23/2024 3:18 PM [employer] Respiratory Rate 18 10/13/2024 12:31 PM [employer] Oxygen Saturation 95% 11/23/2024 3:18 PM [employer] Inhaled Oxygen Concentration - - Weight 103 kg (227 lb) 11/23/2024 3:18 PM [employer] Height 180.3 cm (5' 11) 11/23/2024 3:18 PM [employer] Body Mass Index 31.66 11/23/2024 3:18 PM [employer] Plan of Treatment Upcoming Encounters Date Type Department Care Team (Late st Contact Info) Description 10/18/2025 3:00 PM [employer] Office Visit [facility] - Urology [address] [place] [id number] Abiodun Jean PA [address] [place] [id number] Health Maintenance Due Date Last Done Comments [...] 2000 ZOSTER VACCINE (1 of 2) 2000 DEPRESSION SCREENING 11/10/2024 Respiratory Syncytial Virus (RSV) Vaccine Pt: or over 60 yrs (1 - 1-dose 75+ series) 2025 COVID-19 VACCINE ( - 2023-2 5 season) 2025 INFLUENZA VACCINE (#1) 2025 HEPATITIS B VACCINE Aged Out No [...] this topic Medical Devices Implanted Type Area Foreign Correspondent Device Identifier Shelf Expiration Date Model / Serial / Lot Rama Crow Dr-T-01/16/2024 Implanted:01/16/20 24 (Quantity not on file) [employer] [id number] / [id number] / Description:MRI conditional to 1.5T or 3T-LT 06/23/24 Lead Solia S 60-01/16/2024 Implanted:01/16/20 (Quantity not on file) [employer] [id number] / / Lead Solia S 53-01/16/2024 Implanted:01/16/20 (Quantity not on file) [employer] [id number] / / Insurance MEDICARE [facility] Care Teams Pharmacy Tech Relationship Specialty Start Date End Date Emiliano Garza DO [address] [place] [address] PCP - General Internal Medicine 06/16/24
[2025-09-06 13:07] LABS: Anion Gap 4 mmol/L (4-12); Blood Urea Nitrogen 16 mg/dL (9-20); Calcium 8.2 mg/dL (8.4-10.2); Carbon Dioxide 28 mmol/L (22-30); Chloride 104 mmol/L (98-107); Estimated Glomerular Filt Rate > 60; Glucose 85 mg/dL (65-110); Potassium 4.2 mmol/L (3.4-5.0); Sodium 136 mmol/L (137-145)
== END 2025-09-06 09:12 | disposition home or self-care (01) ==
PROVIDERS: PCP Internal Medicine
DX: I10 Essential (primary) hypertension (principal)
CPT/HCPCS: 36415; 80048